=== PATIENT | female | born 1945 | race Caucasian/White ===

== ENCOUNTER 2020-11-02 07:48 | Outpatient (REF) | payer MEDICARE, SELFPAY ==
--- NOTE | 2020-11-02 | MM_ITS ---
EXAMINATION: MM SCREENING DIGITAL BREAST TOMOSYNTHESIS, BILATERAL CLINICAL INFORMATION: Screening. Asymptomatic. The lifetime risk of breast cancer based on the Tyrer-Cuzick Model is 3%. COMPARISON: Mammography: 10/28/2019, 10/22/2018, 10/21/2017 TECHNIQUE: Digital breast tomosynthesis is performed in both the craniocaudal and mediolateral oblique views along with computer-aided detection (CAD). Synthesized 2D images are generated from the tomosynthesis. FINDINGS: The breasts are almost entirely fatty (ACR BI-RADS breast composition Category a). There are no significant masses, abnormal calcifications, or other abnormalities. There are scattered benign and ductal secretory calcifications again seen. The axilla and skin contours are unremarkable. MM/MM tomosynthesis screening BI IMPRESSION: No mammographic evidence of malignancy. ASSESSMENT: BI-RADS 2: Benign RECOMMENDATION: Routine annual mammography screening. This patient's information was entered into a reminder system with a target due date for their next mammogram.
== END 2020-11-02 07:49 | disposition home or self-care (01) ==
LOC: HO.MAMMO 07:48
PROVIDERS: PCP Internal Medicine; Visit Provider Internal Medicine
DX: Z12.31 Encounter for screening mammogram for malignant neoplasm of breast (principal)
CPT/HCPCS: 77063; 77067

== ENCOUNTER 2021-02-02 11:08 | Outpatient (REF) | payer MEDICARE, SELFPAY ==
[2021-02-02 11:48] LABS: MANUAL DIFF FLAG NO
[2021-02-02 11:52] LABS: Glucose Urine UA NEG (NEG); Leukocyte Esterase Urine NEG (NEG); Nitrite Urine NEG (NEG); PH 5.5 (5.0-8.0); Specific Gravity - Urine <= 1.005 (1.005-1.025); Urine Blood NEG (NEG); Urine Ketones NEG (NEG); Urine Protein NEG (NEG-TRACE)
[2021-02-02 11:53] LABS: Appearance Urine CLEAR; Color Urine COLORLESS
[2021-02-02 11:54] LABS: Basophils Absolute Auto 0.1 X10*3/uL (0.0-0.2); Eosinophils Absolute Auto 0.1 X10*3/uL (0.0-0.4); Hematocrit 40.9 % (37-47); Hemoglobin 13.1 g/dl (12.0-16.0); Imm Gran Abs Auto 0.01 X10*3/uL (0.00-0.03); Imm Gran Pct Auto 0.2 % (0.0-0.4); Lymphocytes Absolute Auto 1.3 X10*3/uL (1.2-4.9); Mean Corpuscular Hemoglobin 30.8 pg (27.0-33.0); Mean Corpuscular Volume 96.2 fL (80-98); Mean Platelet Volume 10.7 fL (9.4-12.3); Monocytes Absolute Auto 0.5 X10*3/uL (0.1-1.2); Monocytes Percent Auto 9.1 % (2-11); Neutrophils Absolute Auto 3.1 X10*3/uL (2.0-8.3); Neutrophils Percent Auto 61.7 % (45-73); Platelet Count 226 X10*3/uL (160-400); Red Blood Count 4.25 X10*6/uL (4.20-5.50)
[2021-02-02 12:35] LABS: Alanine Aminotransferase 24 U/L (0-31); Albumin Level 4.2 g/dL (3.5-5.0); Alkaline Phosphatase 120 U/L (39-117); Anion Gap 14 (12-20); Aspartate Amino Transferase 25 U/L (5-31); Bilirubin Total 0.5 mg/dL (0.0-1.0); Blood Urea Nitrogen 14 mg/dL (9-16); Calcium 9.3 mg/dL (8.4-10.2); Carbon Dioxide 28 mmol/L (22-29); Chloride 104 mmol/L (96-108); Cholesterol 182 mg/dL; Estimated Glomerular Filt Rate > 60; Glucose Fasting 100 mg/dL (60-99); HDL Cholesterol 74 mg/dL; LDL Cholesterol Calculated 79 mg/dl; Potassium 4.7 mmol/L (3.3-5.1); Sodium 141 mmol/L (135-145); Total Protein 6.8 g/dL (6.5-8.0); Triglycerides 148 mg/dL
[2021-02-02 12:36] LABS: TSH reflex Free T4 1.64 uIU/mL (0.32-4.0)
[2021-02-02 12:55] LABS: Folate 14.3 ng/mL (> or = 4.0); Vitamin B12 1222 pg/mL (200-900)
== END 2021-02-02 11:09 | disposition home or self-care (01) ==
LOC: HO.LAB 11:08
PROVIDERS: PCP Internal Medicine; Visit Provider Internal Medicine
DX: I10 Essential (primary) hypertension (principal); E78.00 Pure hypercholesterolemia, unspecified; E53.8 Deficiency of other specified B group vitamins
CPT/HCPCS: 36415; 80053; 80061; 81003; 82607; 82746; 84443; 85025

== ENCOUNTER 2021-03-15 22:18 | Emergency (ER) | payer MEDICARE, SELFPAY ==
--- NOTE | ~2021-03-15 | XR_ITS ---
Examination: XR humerus RT, XR shoulder RT min 2V Indication: pain with palpation to proximal humerus Comparison: No pertinent prior studies are currently available for comparison. Technique: 3 views of the right shoulder and 2 views the right humerus Findings: Humeral head is well-seated in the glenoid fossa. I do not appreciate any acute fracture or dislocation. Hypertrophic degenerative changes in the acromioclavicular joint. No additional acute bony abnormality in the humerus. Visualized right ribs and chest unremarkable. XR/XR shoulder RT min 2V Impression: Degenerative changes. I do not appreciate any acute fracture or dislocation.
--- NOTE | ~2021-03-15 | XR_ITS ---
Examination: XR humerus RT, XR shoulder RT min 2V Indication: pain with palpation to proximal humerus Comparison: No pertinent prior studies are currently available for comparison. Technique: 3 views of the right shoulder and 2 views the right humerus Findings: Humeral head is well-seated in the glenoid fossa. I do not appreciate any acute fracture or dislocation. Hypertrophic degenerative changes in the acromioclavicular joint. No additional acute bony abnormality in the humerus. Visualized right ribs and chest unremarkable. XR/XR humerus RT Impression: Degenerative changes. I do not appreciate any acute fracture or dislocation.
--- NOTE | 2021-03-15 22:47 | ED_ITS ---
HPI - Extremity Injury (Upper) General Chief Complaint: Extremity Injury, Upper Stated Complaint: arm pain Time Seen by Provider: 03/15/21 22:46 Source: patient Mode of arrival: ambulatory Limitations: no limitations History of Present Illness HPI narrative: Patient is a 75-year-old female with a past medical history of HTN, HLD and dementia who presents with her complaining of few hours of right shoulder pain. Patient states she is unable to lift her arm over her head, she states she has pain which starts at the top of her right shoulder and moves down to her arm. She states it is slightly improved from what it was an hour ago, she describes the pain as dull and achy, not sharp for tingling, can use her elbow wrist and fingers in full. Did not try to take any medication to help with the pain. Denies injury Related Data Home Medications Medication Instructions Recorded Confirmed atorvastatin 80 mg tablet 80 mg PO BEDTIME 10/05/20 02/02/21 donepezil 10 mg tablet 10 mg PO DAILY 10/05/20 02/02/21 vit C 250 mg-vit E 90 mg-zinc 40 1 tab PO BID 10/05/20 02/02/21 mg-copper 1 [id number]-[id number] capsule Previous Rx's Medication Instructions Recorded irbesartan 150 mg tablet 150 mg PO DAILY #90 tab 01/30/21 Allergies Allergy/AdvReac Type Severity Reaction Status Date / Time No Known Allergies Allergy Mild NOT Verified 02/02/21 12:22 APPLICABLE Review of Systems Review of Systems: Yes all other systems are reviewed and are negative [facility] Past Medical History Medical History Benign essential hypertension Dementia Keratotic lesion Obesity (BMI 30-39.9) Pure hypercholesterolemia Surgical History History of section Status post bunionectomy (~07/2007) Family History Family History Father Heart disease Mother Heart disease Diabetes mellitus Sister Diabetes mellitus Rheumatoid arthritis Sister Ovarian cancer Social History Social History Alcohol intake: current Alcohol intake frequency: holidays/special occasions only Alcohol type: wine Advance Directives: No Advance Directives Information Provided: No Physical Exam Vital Signs: Vital Signs: Last Vital Signs Temp 98.8 F 03/15/21 22:55 Pulse 74 03/15/21 22:55 Resp 16 03/15/21 22:55 BP 133/78 03/15/21 22:55 Pulse Ox 98 03/15/21 22:55 Body Mass Index 31.2 Const: General: cooperative, healthy appearing, comfortable, no acute distress and well developed Orientation/consciousness: patient oriented x3 Limitations: no limitations HENMT: Head: Yes normal to inspection Eyes: General: appearance normal, both eyes and all related structures Neck: Neck: Yes normal visual inspection and Yes full ROM Resp: Effort & Inspection: normal respiratory effort and able to speak in complete sentences Skin: General skin exam: no rashes or lesions noted Neuro: General: patient oriented x3 Extrem: General: Yes normal to inspection Right upper extremity: normal to inspection and shoulder/upper arm Details: normal to inspection, tenderness, axillary nerve sensory function normal and abnormal ROM Details: pain with active ROM Details: in ADduction and pain with passive ROM Details: with ADduction; no swelling, no abrasions, no lacerations, no ecchymosis, no deformity and no unusual warmth Course Course Course Narrative: Patient is a 75-year-old female with a past medical history of HTN, HLD and dementia who presents with her complaining of few hours of right shoulder pain, denies trauma. VSS. Physical exam reveals patient unable to adduct right arm overhead. Will get right shoulder and humerus x-ray. Reevaluation(s) Reevaluation #1: X-ray negative for fracture or dislocation, only degenerative changes, will discharge home with pain management. Time: 23:45 MDM - Extremity Injury (Upper) Imaging Data shoulder and humerus x-ray right side: Attestation: I personally reviewed and interpreted this imaging study as follows: My impression: Degenerative changes. I do not appreciate any acute fracture or dislocation. Radiologist's impression: [address] [id number] ReportSigned Patient: Anneliese Donnelly [facility]#: [id number]: 5Acct:[id number]/Sex: 75 / FADM Date: 03/15/21Loc: TRAV.EDAttending Dr: Ordering Physician: Patsy Valadez PA-C Date of Service: 03/15/21 Procedure(s): XR humerus RT Accession Number(s): [id number] cc: Patsy Valadez PA-C~ Examination: XR humerus RT, XR shoulder RT min 2V Indication: pain with palpation to proximal humerus Comparison: No pertinent prior studies are currently available for comparison. Technique: 3 views of the right shoulder and 2 views the right humerus Findings: Humeral head is well-seated in the glenoid fossa. I do not appreciate any acute fracture or dislocation. Hypertrophic degenerative changes in the acromioclavicular joint. No additional acute bony abnormality in the humerus. Visualized right ribs and chest unremarkable. XR/XR humerus RT Impression: Degenerative changes. I do not appreciate any acute fracture or dislocation. Dictated By:CHARLINE ARNOLD MDSigned By:<Electronically signed by CHARLINE ARNOLD MD in [place]>03/15/212328 DD/ 2246TD/TT: Production Posting Clerk: [place] Discharge Plan Discharge Prescriptions: No Action irbesartan 150 mg tablet 150 mg PO DAILY Qty: 90 RF: 1 donepezil 10 mg tablet 10 mg PO DAILY RF: 0 atorvastatin 80 mg tablet 80 mg PO BEDTIME RF: 0 PreserVision AREDS-2 [id number] wf-rgvf-vn-mg capsule 1 tab PO BID RF: 0
[2021-03-15 22:55] VITALS: BP 133/78; PULSE 74; RESP 16; TEMP 37.1; O2SAT 98; BMI 31.2
[2021-03-16] MEDS: Ketorolac Tromethamine 30 MG/ML VIAL IM (00:11)
== END 2021-03-16 00:18 | disposition home or self-care (01) ==
PROVIDERS: Emergency Provider Emergency Medicine Emergency Medical Services; PCP Internal Medicine
DX: M25.511 Pain in right shoulder (principal); M19.011 Primary osteoarthritis, right shoulder; I10 Essential (primary) hypertension; E78.00 Pure hypercholesterolemia, unspecified; Z79.02 Long term (current) use of antithrombotics/antiplatelets; Z79.899 Other long term (current) drug therapy
CPT/HCPCS: 73030; 73060; 96372; 99283; 99284; J1885

== ENCOUNTER 2021-03-30 16:49 | Emergency (ER) | payer OTHER, MEDICARE, SELFPAY ==
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
[2021-03-30 16:59] VITALS: BP 132/68; PULSE 98; O2SAT 100
[2021-03-30 17:16] VITALS: BP 136/61; PULSE 99; RESP 20; O2SAT 100; BMI 34.2
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
[2021-03-30 20:44] VITALS: BP 122/58; PULSE 84; RESP 14; TEMP 35.9; O2SAT 100
[2021-03-30] MEDS: Acetaminophen 325 MG TABLET 975 MG PO (21:18)
== END 2021-03-30 21:44 | disposition home or self-care (01) ==
PROVIDERS: Emergency Provider Internal Medicine; PCP Internal Medicine
DX: S52.515A Nondisplaced fracture of left radial styloid process, initial encounter for closed fracture (principal); S80.02XA Contusion of left knee, initial encounter; S50.02XA Contusion of left elbow, initial encounter; V47.5XXA Car driver injured in collision with fixed or stationary object in traffic accident, initial encounter; I10 Essential (primary) hypertension; E78.00 Pure hypercholesterolemia, unspecified; F03.90 Unspecified dementia, unspecified severity, without behavioral disturbance, psychotic disturbance, mood disturbance, and anxiety; Y93.89 Activity, other specified; Y92.014 Private driveway to single-family (private) house as the place of occurrence of the external cause; Y99.9 Unspecified external cause status; Z79.02 Long term (current) use of antithrombotics/antiplatelets; Z79.899 Other long term (current) drug therapy
CPT/HCPCS: 29125; 70450; 73070; 73100; 73562; 99285

== ENCOUNTER → 2021-04-03 14:15 | Outpatient (BNVA) | payer OTHER, MEDICARE, SELFPAY | PROVIDERS: PCP Internal Medicine; Visit Provider Physician Assistant | DX: S52.513A Displaced fracture of unspecified radial styloid process, initial encounter for closed fracture (principal) | CPT/HCPCS: 25600 ==

== ENCOUNTER 2021-04-23 10:10 | Outpatient (REF) | payer OTHER, MEDICARE, SELFPAY ==
--- NOTE | ~2021-04-23 | XR_ITS ---
EXAMINATION: XR WRIST, LEFT CLINICAL INFORMATION: Radial styloid fracture. COMPARISON: Left wrist radiographs dated 03/30/2021. TECHNIQUE: PA, lateral, and oblique views of the left wrist. FINDINGS: Nondisplaced radial styloid fracture in unchanged anatomic alignment with mild new bone/callus formation. No new fracture or dislocation. Severe osteoarthritis redemonstrated at the 1st carpometacarpal joint with more moderate degenerative arthritis at the triscaphe joint. No osseous erosion. No abnormal soft tissue calcification. XR/XR wrist LT min 3V IMPRESSION: Radial styloid fracture in unchanged anatomic alignment with mild new bone/callus formation.
== END 2021-04-23 10:11 | disposition home or self-care (01) ==
LOC: HO.HOSX 10:10
PROVIDERS: Visit Provider Physician Assistant
DX: S52.513A Displaced fracture of unspecified radial styloid process, initial encounter for closed fracture (principal); V23.4XXA Motorcycle driver injured in collision with car, pick-up truck or van in traffic accident, initial encounter; Y93.9 Activity, unspecified; Y92.9 Unspecified place or not applicable; Y99.9 Unspecified external cause status
CPT/HCPCS: 73110

== ENCOUNTER 2021-05-21 07:33 | Outpatient (REF) | payer OTHER, MEDICARE, SELFPAY ==
--- NOTE | ~2021-05-21 | XR_ITS ---
EXAMINATION: XR HAND AND WRIST, LEFT CLINICAL INFORMATION: Radial styloid fracture. COMPARISON: Most recent left wrist radiographs dated 04/23/2021 TECHNIQUE: AP, oblique, and lateral views of the left hand and wrist. FINDINGS: Redemonstration of a radial styloid fracture in unchanged anatomic alignment with mild interval sclerosis/osseous bridging when compared to the prior examination. No acute fracture. No dislocation. Scattered degenerative arthritis redemonstrated, most prominent at the 1st carpometacarpal joint. XR/XR hand wrist LT IMPRESSION: Redemonstration of a radial styloid fracture in unchanged anatomic alignment with interval new bone formation.
== END 2021-05-21 07:34 | disposition home or self-care (01) ==
LOC: HO.HOSX 07:33
PROVIDERS: Visit Provider Physician Assistant
DX: S52.513D Displaced fracture of unspecified radial styloid process, subsequent encounter for closed fracture with routine healing (principal); X58.XXXD Exposure to other specified factors, subsequent encounter
CPT/HCPCS: 73110; 73130

== ENCOUNTER 2021-05-25 08:24 | Outpatient (REF) | payer MEDICARE, SELFPAY ==
[2021-05-25 09:48] LABS: Alanine Aminotransferase 83 U/L (0-31); Albumin Level 3.9 g/dL (3.5-5.0); Alkaline Phosphatase 126 U/L (39-117); Anion Gap 18 (12-20); Aspartate Amino Transferase 61 U/L (5-31); Bilirubin Total 0.9 mg/dL (0.0-1.0); Blood Urea Nitrogen 13 mg/dL (9-16); Calcium 9.4 mg/dL (8.4-10.2); Carbon Dioxide 21 mmol/L (22-29); Chloride 102 mmol/L (96-108); Cholesterol 171 mg/dL; Estimated Glomerular Filt Rate > 60; Glucose Fasting 103 mg/dL (60-99); HDL Cholesterol 67 mg/dL; LDL Cholesterol Calculated 91 mg/dl; Potassium 4.6 mmol/L (3.3-5.1); Sodium 136 mmol/L (135-145); Total Protein 6.7 g/dL (6.5-8.0); Triglycerides 68 mg/dL
== END 2021-05-25 08:25 | disposition home or self-care (01) ==
LOC: HO.LAB 08:24
PROVIDERS: PCP Internal Medicine; Visit Provider Internal Medicine
DX: E78.00 Pure hypercholesterolemia, unspecified (principal); I10 Essential (primary) hypertension
CPT/HCPCS: 36415; 80053; 80061

== ENCOUNTER 2021-06-26 13:43 | Outpatient (REF) | payer MEDICARE, SELFPAY ==
--- NOTE | ~2021-06-26 | MM_ITS ---
EXAMINATION: BONE DENSITOMETRY CLINICAL INDICATION: Encounter for screening for diabetes mellitus. COMPARISON: Previous BD dated 01/30/2016 and baseline BD dated 07/20/2007. TECHNIQUE: Using a [employer] DXA System (software version: 13.1) manufactured by [employer], dual-energy x-ray absorptiometry was performed of the lumbar spine and left hip. The images are of good technical quality. Summary results are attached. FINDINGS: AP SPINE L1-L2 (excluding L3 and L4): The data of L1-L4 has been changed to exclude the L3 and L4 vertebral bodies, because scoliosis with sclerosis at these levels may cause overestimation of lumbar spine density. Current: BMD 0.971 g/cm2, Z-score -0.5, T-score -1.6, osteopenia, 12.1% decrease from previous, 7.1% decrease from baseline (<5% change is not significant). Prior: BMD 1.105 g/cm2. Baseline: BMD 1.045 g/cm2. LEFT FEMUR, NECK: Current: BMD 0.725 g/cm2, Z-score -0.7, T-score -2.2, osteopenia. Prior: BMD 0.761 g/cm2. Baseline: BMD 0.818 g/cm2. LEFT FEMUR, TOTAL: Current: BMD 0.756 g/cm2, Z-score -0.7, T-score -2.0, osteopenia, 12.3% decrease from previous, 15.8% decrease from baseline (<5% change is not significant). Prior: BMD 0.862 g/cm2. Baseline: BMD 0.898 g/cm2. IDENTIFIED RISK FACTORS: Early menopause, secondary osteoporosis. HISTORY OF FRACTURE: None listed. MEDICATIONS: Calcium supplements or multivitamin, vitamin D. MM/XR DEXA axial skeleton IMPRESSION: 1. DIAGNOSIS: Osteopenia based on the lowest T-score value of -2.2 in the femoral neck applying World Health Organization criteria. 2. 10-YEAR FRACTURE RISK PREDICTION, FRAX: Major osteoporotic fracture (clinical spine, forearm, hip or shoulder) 13.9%. Hip fracture 3.9%. 3. Treatment Recommendations: NOF guidelines recommend consideration for treatment in postmenopausal women and men age 50 and older presenting with the following: -A hip or vertebral (clinical or morphometric) fracture. -T-score less than or equal to -2.5 at the femoral neck or spine after appropriate evaluation to exclude secondary causes. -Low bone mass at the hip or spine and a 10-year fracture probability by FRAX of greater than or equal to 3% for hip fracture or greater than or equal to 20% for major osteoporotic fracture based on the [place] adapted WHO algorithm. 4. Other Recommendations: All treatment decisions require clinical judgment and consideration of individual patient factors, including patient preferences, comorbidities, previous drug use, risk factors not captured in the FRAX model (e.g. frailty, falls, vitamin D deficiency, increased bone turnover, interval significant decline in bone density) and possible under or overestimation of fracture risk by FRAX. Additional medical evaluation for secondary cause of low bone mineral density may be appropriate. FUTURE SCAN RECOMMENDATION: People with diagnosed cases of osteoporosis or at high risk for fracture should have regular bone mineral density tests. For patients eligible for Medicare, routine testing is allowed once every 2 years. The testing frequency can be increased to one year for patients who have rapidly progressing disease, those who are receiving or discontinuing medical therapy to restore bone mass, or have additional risk factors.
== END 2021-06-26 13:44 | disposition home or self-care (01) ==
LOC: HO.MAMMO 13:43
PROVIDERS: PCP Internal Medicine; Visit Provider Nurse Practitioner Family
DX: Z13.820 Encounter for screening for osteoporosis (principal); M85.80 Other specified disorders of bone density and structure, unspecified site; Z78.0 Asymptomatic menopausal state; Z79.899 Other long term (current) drug therapy
CPT/HCPCS: 77080

== ENCOUNTER 2021-09-04 07:43 | Outpatient (REF) | payer MEDICARE, SELFPAY ==
[2021-09-04 09:11] LABS: Alanine Aminotransferase 33 U/L (0-31); Albumin Level 3.7 g/dL (3.5-5.0); Alkaline Phosphatase 102 U/L (39-117); Anion Gap 11 (12-20); Aspartate Amino Transferase 29 U/L (5-31); Bilirubin Total 0.5 mg/dL (0.0-1.0); Blood Urea Nitrogen 13 mg/dL (9-16); Calcium 9.4 mg/dL (8.4-10.2); Carbon Dioxide 29 mmol/L (22-29); Chloride 104 mmol/L (96-108); Cholesterol 249 mg/dL; Estimated Glomerular Filt Rate > 60; Glucose Fasting 97 mg/dL (60-99); HDL Cholesterol 67 mg/dL; LDL Cholesterol Calculated 156 mg/dl; Potassium 4.4 mmol/L (3.3-5.1); Sodium 140 mmol/L (135-145); Total Protein 6.2 g/dL (6.5-8.0); Triglycerides 131 mg/dL
== END 2021-09-04 07:44 | disposition home or self-care (01) ==
LOC: HO.LAB 07:43
PROVIDERS: PCP Internal Medicine; Visit Provider Internal Medicine
DX: E78.00 Pure hypercholesterolemia, unspecified (principal); I10 Essential (primary) hypertension
CPT/HCPCS: 36415; 80053; 80061

== ENCOUNTER 2021-09-11 13:41 | Outpatient (REF) | payer MEDICARE, SELFPAY ==
[2021-09-12 13:12] LABS: Lyme Abs Screen <0.90 index
== END 2021-09-11 13:42 | disposition home or self-care (01) ==
LOC: HO.LAB 13:41
PROVIDERS: PCP Internal Medicine; Visit Provider Internal Medicine
DX: R21 Rash and other nonspecific skin eruption (principal)
CPT/HCPCS: 36415; 86617; 86618

== ENCOUNTER 2021-11-09 11:34 | Outpatient (REF) | payer MEDICARE, SELFPAY ==
--- NOTE | ~2021-11-09 | MM_ITS ---
EXAMINATION: MM SCREENING DIGITAL BREAST TOMOSYNTHESIS, BILATERAL CLINICAL INFORMATION: Screening. Asymptomatic. The lifetime risk of breast cancer based on the Tyrer-Cuzick Model is 3%. COMPARISON: Mammography: 11/02/2020, 10/28/2019, 10/22/2018 TECHNIQUE: Digital breast tomosynthesis is performed in both the craniocaudal and mediolateral oblique views along with computer-aided detection (CAD). Synthesized 2D images are generated from the tomosynthesis. FINDINGS: The breasts are almost entirely fatty (ACR BI-RADS breast composition Category a). There are no significant masses, abnormal calcifications, or other abnormalities. Scattered benign vascular, ductal secretory, and a few round calcifications are again noted. No significant changes. The axilla are unremarkable. MM/MM tomosynthesis screening BI IMPRESSION: No mammographic evidence of malignancy. ASSESSMENT: BI-RADS 2: Benign RECOMMENDATION: Routine annual mammography screening. This patient's information was entered into a reminder system with a target due date for their next mammogram.
== END 2021-11-09 11:35 | disposition home or self-care (01) ==
LOC: HO.MAMMO 11:34
PROVIDERS: Visit Provider Internal Medicine
DX: Z12.31 Encounter for screening mammogram for malignant neoplasm of breast (principal)
CPT/HCPCS: 77063; 77067

== ENCOUNTER 2022-03-19 10:30 | Outpatient (REF) | payer MEDICARE, SELFPAY ==
[2022-03-19 10:50] LABS: MANUAL DIFF FLAG NO
[2022-03-19 11:53] LABS: Basophils Percent Auto 0.9 % (0-2); Eosinophils Absolute Auto 0.1 X10*3/uL (0.0-0.4); Eosinophils Percent Auto 2.6 % (0-4); Hematocrit 39.1 % (37.0-47.0); Hemoglobin 12.9 g/dl (12.0-16.0); Imm Gran Abs Auto 0.01 X10*3/uL (0.00-0.03); Imm Gran Pct Auto 0.2 % (0.0-0.4); Lymphocytes Absolute Auto 1.4 X10*3/uL (1.2-4.9); Lymphocytes Percent Auto 30.8 % (20-40); Mean Corpuscular Hemoglobin 31.6 pg (27.0-33.0); Mean Corpuscular Volume 95.8 fL (80.0-98.0); Mean Platelet Volume 11.3 fL (9.4-12.3); Monocytes Absolute Auto 0.5 X10*3/uL (0.1-1.2); Monocytes Percent Auto 10.3 % (2-11); Neutrophils Absolute Auto 2.6 x10*3/uL (2.0-8.3); Neutrophils Percent Auto 55.2 % (45-73); Platelet Count 149 X10*3/uL (160-400); Red Blood Count 4.08 X10*6/uL (4.20-5.50); White Blood Count 4.7 X10*3/uL (4.8-10.8)
[2022-03-19 12:05] LABS: Alanine Aminotransferase 36 U/L (0-31); Albumin Level 3.9 g/dL (3.5-5.0); Alkaline Phosphatase 112 U/L (39-117); Anion Gap 15 (12-20); Aspartate Amino Transferase 36 U/L (5-31); Bilirubin Total 0.7 mg/dL (0.0-1.0); Blood Urea Nitrogen 18 mg/dL (9-16); Carbon Dioxide 24 mmol/L (22-29); Chloride 101 mmol/L (96-108); Cholesterol 170 mg/dL; Estimated Glomerular Filt Rate > 60; Glucose Fasting 90 mg/dL (60-99); HDL Cholesterol 63 mg/dL; LDL Cholesterol Calculated 95 mg/dl; Potassium 4.2 mmol/L (3.3-5.1); Sodium 136 mmol/L (135-145); Total Protein 6.5 g/dL (6.5-8.0); Triglycerides 61 mg/dL
[2022-03-19 12:16] LABS: TSH reflex Free T4 1.66 uIU/mL (0.32-4.0); Vitamin D 25-OH Total 44.6 ng/mL (>30)
[2022-03-19 12:16] LABS: Appearance Urine HAZY; Color Urine YELLOW; Glucose Urine UA NEG (NEG); Leukocyte Esterase Urine 1+ (NEG); Nitrite Urine NEG (NEG); PH 5.5 (5.0-8.0); UACC Culture Trigger YES; Urine Blood NEG (NEG); Urine Ketones NEG (NEG); Urine Protein NEG (NEG-TRACE)
[2022-03-19 12:53] LABS: RBC Urine 0 /HPF (0); Renal Epithelial Cells Urine TRACE /LPF; Squamous Epithelial Cell Urine TRACE /LPF
== END 2022-03-19 10:31 | disposition home or self-care (01) ==
LOC: HO.LAB 10:30
PROVIDERS: PCP Internal Medicine; Visit Provider Internal Medicine
DX: I10 Essential (primary) hypertension (principal); E55.9 Vitamin D deficiency, unspecified; E78.00 Pure hypercholesterolemia, unspecified
CPT/HCPCS: 36415; 80053; 80061; 81001; 81003; 82306; 84443; 85025; 87086

== ENCOUNTER 2022-09-16 08:15 | Outpatient (REF) | payer MEDICARE, SELFPAY ==
[2022-09-16 08:27] LABS: MANUAL DIFF FLAG NO
[2022-09-16 08:37] LABS: Basophils Absolute Auto 0.1 X10*3/uL (0.0-0.2); Basophils Percent Auto 1.2 % (0-2); Eosinophils Absolute Auto 0.2 X10*3/uL (0.0-0.4); Eosinophils Percent Auto 2.6 % (0-4); Hematocrit 39.8 % (37.0-47.0); Hemoglobin 13.4 g/dl (12.0-16.0); Imm Gran Abs Auto 0.02 X10*3/uL (0.00-0.03); Imm Gran Pct Auto 0.3 % (0.0-0.4); Lymphocytes Absolute Auto 2.2 X10*3/uL (1.2-4.9); Lymphocytes Percent Auto 32.3 % (20-40); Mean Corpuscular HGB Conc 33.7 g/dl (31.0-35.0); Mean Corpuscular Hemoglobin 32.1 pg (27.0-33.0); Mean Corpuscular Volume 95.4 fL (80.0-98.0); Mean Platelet Volume 10.9 fL (9.4-12.3); Monocytes Absolute Auto 0.6 X10*3/uL (0.1-1.2); Monocytes Percent Auto 8.5 % (2-11); Neutrophils Absolute Auto 3.8 x10*3/uL (2.0-8.3); Neutrophils Percent Auto 55.1 % (45-73); Platelet Count 205 X10*3/uL (160-400); Red Blood Count 4.17 X10*6/uL (4.20-5.50); Red Cell Distribution Width 12.2 % (11.0-16.0); White Blood Count 6.9 X10*3/uL (4.8-10.8)
[2022-09-16 09:22] LABS: Alanine Aminotransferase 30 U/L (0-31); Albumin Level 3.9 g/dL (3.5-5.0); Alkaline Phosphatase 121 U/L (39-117); Anion Gap 15 (12-20); Aspartate Amino Transferase 34 U/L (5-31); Bilirubin Total 0.8 mg/dL (0.0-1.0); Blood Urea Nitrogen 18 mg/dL (9-16); Calcium 9.5 mg/dL (8.4-10.2); Carbon Dioxide 24 mmol/L (22-29); Chloride 103 mmol/L (96-108); Cholesterol 164 mg/dL; Estimated Glomerular Filt Rate 56; Glucose Fasting 99 mg/dL (60-99); HDL Cholesterol 74 mg/dL; LDL Cholesterol Calculated 79 mg/dl; Potassium 3.9 mmol/L (3.3-5.1); Sodium 138 mmol/L (135-145); TSH reflex Free T4 1.74 uIU/mL (0.32-4.0); Total Protein 6.4 g/dL (6.5-8.0); Triglycerides 58 mg/dL; Vitamin D 25-OH Total 44.2 ng/mL (>30)
[2022-09-16 09:33] LABS: Appearance Urine Hazy; Color Urine Yellow; Glucose Urine UA Negative (Negative); Leukocyte Esterase Urine Small (1+) (Negative); Nitrite Urine Negative (Negative); PH 5.5 (5.0-9.0); Specific Gravity - Urine >= 1.030 (1.005-1.025); UMIC TRIGGER UACC YES; Urine Blood Negative (Negative); Urine Ketones Trace mg/dL (Negative); Urine Protein Negative (Neg-Trace)
[2022-09-16 09:43] LABS: Bacteria Urine None Seen (None Seen); RBC Urine 0-2 /HPF (0-2); Renal Epithelial Cells Urine Present; UACC Culture Trigger YES; WBC Urine 0-5 /HPF (0-5)
[2022-09-16 09:44] LABS: Calcium Oxalate Crystals Urine Present; Hyaline Casts Urine 0-2 /LPF (0-2)
== END 2022-09-16 08:16 | disposition home or self-care (01) ==
LOC: HO.LAB 08:15
PROVIDERS: PCP Internal Medicine; Visit Provider Internal Medicine
DX: E55.9 Vitamin D deficiency, unspecified (principal); I10 Essential (primary) hypertension; E78.00 Pure hypercholesterolemia, unspecified
CPT/HCPCS: 36415; 80053; 80061; 81001; 82306; 84443; 85025; 87086

== ENCOUNTER 2022-11-12 11:52 | Outpatient (REF) | payer MEDICARE, SELFPAY ==
--- NOTE | ~2022-11-12 | MM_ITS ---
EXAMINATION: MM SCREENING DIGITAL BREAST TOMOSYNTHESIS, BILATERAL CLINICAL INFORMATION: Screening. Asymptomatic. The lifetime risk of breast cancer based on the Tyrer-Cuzick Model is 2.2%. COMPARISON: Mammography: November 09, 2021 and studies dating back to September 12, 2016 TECHNIQUE: Digital breast tomosynthesis is performed in both the craniocaudal and mediolateral oblique views along with computer-aided detection (CAD). Synthesized 2D images are generated from the tomosynthesis. FINDINGS: The breasts are almost entirely fatty (ACR BI-RADS breast composition Category a). There are no significant masses, abnormal calcifications, or other abnormalities. MM/MM tomosynthesis screening BI IMPRESSION: No significant changes from prior exam. ASSESSMENT: BI-RADS 1: Negative RECOMMENDATION: Routine annual mammography screening. This patient's information was entered into a reminder system with a target due date for their next mammogram.
== END 2022-11-12 11:53 | disposition home or self-care (01) ==
LOC: HO.MAMMO 11:52
PROVIDERS: Visit Provider Internal Medicine
DX: Z12.31 Encounter for screening mammogram for malignant neoplasm of breast (principal)
CPT/HCPCS: 77063; 77067

== ENCOUNTER 2023-03-17 08:00 | Outpatient (REF) | payer MEDICARE, SELFPAY ==
[2023-03-17 08:18] LABS: MANUAL DIFF FLAG NO
[2023-03-17 09:06] LABS: Basophils Absolute Auto 0.1 X10*3/uL (0.0-0.2); Basophils Percent Auto 1.2 % (0-2); Eosinophils Absolute Auto 0.3 X10*3/uL (0.0-0.4); Eosinophils Percent Auto 5.3 % (0-4); Hematocrit 39.6 % (37.0-47.0); Imm Gran Abs Auto 0.01 X10*3/uL (0.00-0.03); Imm Gran Pct Auto 0.2 % (0.0-0.4); Lymphocytes Absolute Auto 1.8 X10*3/uL (1.2-4.9); Mean Corpuscular HGB Conc 32.8 g/dl (31.0-35.0); Mean Corpuscular Volume 94.5 fL (80.0-98.0); Mean Platelet Volume 11.2 fL (9.4-12.3); Monocytes Absolute Auto 0.5 X10*3/uL (0.1-1.2); Neutrophils Absolute Auto 3.2 x10*3/uL (2.0-8.3); Neutrophils Percent Auto 54.3 % (45-73); Platelet Count 170 X10*3/uL (160-400); Red Blood Count 4.19 X10*6/uL (4.20-5.50); White Blood Count 5.9 X10*3/uL (4.8-10.8)
[2023-03-17 09:22] LABS: Alanine Aminotransferase 24 U/L (0-31); Albumin Level 3.7 g/dL (3.5-5.0); Alkaline Phosphatase 123 U/L (39-117); Anion Gap 12 (12-20); Aspartate Amino Transferase 24 U/L (5-31); Bilirubin Total 0.8 mg/dL (0.0-1.0); Blood Urea Nitrogen 15 mg/dL (9-16); Calcium 9.4 mg/dL (8.4-10.2); Carbon Dioxide 27 mmol/L (22-29); Chloride 103 mmol/L (96-108); Cholesterol 175 mg/dL; Estimated Glomerular Filt Rate > 60; Glucose Fasting 92 mg/dL (60-99); HDL Cholesterol 75 mg/dL; LDL Cholesterol Calculated 90 mg/dl; Potassium 4.3 mmol/L (3.3-5.1); Sodium 138 mmol/L (135-145); Total Protein 6.4 g/dL (6.5-8.0); Triglycerides 53 mg/dL
== END 2023-03-17 08:01 | disposition home or self-care (01) ==
LOC: HO.LAB 08:00
PROVIDERS: PCP Internal Medicine; Visit Provider Internal Medicine
DX: I10 Essential (primary) hypertension (principal); E78.00 Pure hypercholesterolemia, unspecified
CPT/HCPCS: 36415; 80053; 80061; 85025

== ENCOUNTER 2023-07-15 10:48 | Outpatient (AMB) | payer MEDICARE, SELFPAY ==
[2023-07-15 10:49] VITALS: BP 120/74; PULSE 73; O2SAT 99; BMI 31.8
--- NOTE | 2023-07-15 10:49 | AM.OFFVISMDC ---
Intake Vital Signs 07/15/23 10:49 Height 5 ft Weight 163 lb 0.6 oz BMI 31.8 BP 120/74 Blood Pressure Location Lt brachial Position Sitting Pulse 73 Pulse Source Pulse Oximeter Temp Source Skin Pulse Oximetry (%) 99 Oxygen Delivery Method Room Air Intake Visit Reasons: QUETA G0439, Discuss ACP Intake Note: Patient is here for an Annual Wellness Visit. Allergies No Known Allergies Allergy (Mild, Verified 07/15/23 11:10) NOT APPLICABLE Medication List - Last Reconciled 07/15/23 by MINE Cortez atorvastatin 80 mg PO BEDTIME 90 days donepezil 10 mg PO DAILY irbesartan 150 mg PO DAILY memantine 10 mg PO BID vit C,X-Jq-rfjra-lutein-zeaxan 250-90-40-1 mg (PreserVision AREDS-2) 1 tab PO BID HPI QUETA G0439, Discuss ACP HPI Details Patient is a 77-year-old female who presents today for subsequent wellness visit. Patient of Dr. Nava. Medical history significant for obesity, dementia, hypertension, and hypercholesterolemia. Today we discussed patient's need for bone density screening, patient and her have declined. Mammogram 11/2022 which was normal. [place] of care was reviewed with the patient and her and they were provided with a screening schedule. End of life planning was discussed with and patient and they were provided with healthcare proxy and MOLST forms. [facility] Medical History (Updated 07/15/23 @ 12:13 by MINE Cortez) Immunization due Rash Screening for diabetes mellitus Radial styloid fracture Closed fracture of radial styloid Keratotic lesion Obesity (BMI 30-39.9) Dementia Benign essential hypertension Pure hypercholesterolemia Surgical History History of colonoscopy Status post bunionectomy (~07/2007) History of section Family History Father Heart disease Mother Heart disease Diabetes mellitus Sister Diabetes mellitus Rheumatoid arthritis Sister Ovarian cancer Social History Housing: House Alcohol intake: former Patient Tobacco Use Status: Never used Tobacco e-Cigarette/Vaping Use: Never Used Second Hand Smoke Exposure: Yes service: No Current occupational status: retired Cognitive needs: No Hearing needs: No Vision needs: Yes Questionnaire Medicare Wellness Checkup [age] What gender do you identify with?: female During the past 4 weeks, how much have you been bothered by emotional problems such as feeling anxious, depressed, irritable, sad or downhearted, and blue?: not at all During the past 4 weeks, has your physical & emotional health limited your social activities with family, friends, neighbors, or groups?: not at all During the past 4 weeks, how much bodily pain have you generally had?: no pain During the past 4 weeks, was someone available to help you if you needed & wanted help?: yes, as much as I wanted During the past 4 weeks, what was the hardest physical activity you could do for at least 2 minutes?: moderate Can you get to places out of walking distance without help? (For eg., can you travel alone on buses, taxis or drive your car?): Yes Can you go shopping for groceries or clothes without someone's help?: Yes Can you prepare your own meals?: Yes Can you do your housework without help?: Yes Because of any health problems, do you need the help of another person with your personal care needs such as eating, bathing, dressing or getting around the house?: No Can you handle your own money without help?: Yes During the past 4 weeks, how would you rate your health in general?: excellent During the past 4 weeks how have things been going for you?: pretty well Are you having difficulties driving your car?: yes, often Do you always fasten your seat belt when you are in a car?: yes, usually During past 4 weeks, have you been bothered by the following: never: Falling or dizzy when standing up, Sexual problems?, Trouble eating well?, Teeth or denture problems?, Problems using the telephone? and Tiredness or fatigue? Have you fallen 2 or more times in the past year?: No Are you afraid of falling?: No Are you a smoker?: no During the past 4 weeks, how many drinks of wine, beer, or other alcoholic beverages did you have?: 1 drink or less per week Do you exercise for about 20 minutes 3 or more times a week?: yes, some of the time Have you been given information to help with the following?: yes: Keeping track of your medications? and no: Hazards in your house that might hurt you? How often do you have trouble taking medicines the way you have been told to take them?: I always take medicine as prescribed How confident are you that you can control & manage most of your health problems?: somewhat confident What is your race?: White Mini Mental State Exam (MMSE) Orientation What is the (year) (season) (date) (day) (month)?: month (a and o to self and place ) Score Score: 1 Activity of Daily Living Bathing - sponge bath, tub bath or shower: receives no assistance (gets in/out by self, if usual bathing means Dressing - getting clothes from closets & drawers, including inner/outer garments & fasteners.: gets clothes & gets completely dressed without help Toileting - going to the 'toilet room' for urine/bowel elimination & cleaning self/arranging clothes: goes to toilet room, cleans self, arranges clothes without help Transfer: moves in & out of bed and chair without help (may use support object) Continence: controls urination/bowel movements completely by self Feeding: feeds self without help Total Score: 0 Information obtained from: patient Using telephone: independent Traveling: dependent Shopping: needs assistance Preparing meals: needs assistance Housework: needs assistance Taking medicine: needs assistance Managing money: dependent PHQ-9 Over the last 2 weeks, how often have you been bothered by any of the following problems? 1. Little interest or pleasure in doing things: not at all 2. Feeling down, depressed, or hopeless: not at all 3. Trouble falling or staying asleep, or sleeping too much: not at all 4. Feeling tired or having little energy: not at all 5. Poor appetite or overeating: not at all 6. Feeling bad about yourself - or that you are a failure or have let yourself or your family down: not at all 7. Trouble concentrating on things, such as reading the newspaper or watching television: not at all 8. Moving or speaking so slowly that other people could have noticed. Or the opposite - being so fidgety or restless that you have been moving around a lot more than usual: not at all 9. Thoughts that you would be better off or of hurting yourself in some way: not at all Total score: 0 Depression Screening Interpretation: Negative Depression Screening Done: Yes 45922 - PHQ-9 Billing: Yes Source: Developed by Drs. Mello Richey, Katina Avalos, Beni Palma and colleagues, with an educational sesar from [employer]. Physical Exam Vital Signs: Last Vital Signs Pulse 73 07/15/23 10:49 BP 120/74 07/15/23 10:49 Pulse Ox 99 07/15/23 10:49 Oxygen Delivery Method Room Air 07/15/23 10:49 BMI result Body Mass Index 31.8 Const General: cooperative and no acute distress Orientation/consciousness: oriented to person and oriented to place HEENT Other: Whisper test: pass Neuro Other: Balance: Normal Get up and walk: able to Romberg: negative Tandem gait: unable to General: oriented to person and oriented to place Assessment & Plan Assessment & Plan (1) Adult general medical exam: Code(s): Z00.00 - Encounter for general adult medical examination without abnormal findings (2) Dementia: Code(s): F03.90 - Unspecified dementia, unspecified severity, without behavioral disturbance, psychotic disturbance, mood disturbance, and anxiety Qualifiers: Dementia type: unspecified type Dementia behavioral disturbance: without behavioral disturbance Qualified Code(s): F03.90 - Unspecified dementia without behavioral disturbance Plan: Patient is followed by neurology Dr. Sanchez. On memantine (3) Benign essential hypertension: Code(s): I10 - Essential (primary) hypertension Plan: Continue current treatment. Reinforced low-sodium diet. (4) Pure hypercholesterolemia: Code(s): E78.00 - Pure hypercholesterolemia, unspecified Plan: Continue current treatment. Reinforced low-cholesterol diet. (5) Obesity (BMI 30-39.9): Code(s): E66.9 - Obesity, unspecified Plan: Healthy food choices and exercise as tolerated Quality Reporting (2019) Depression/Bipolar (159/160/161/177) PHQ-9: Total score: 0 Coding Level of Care Code Medicare Subsequent (G0439) Diagnoses Adult general medical exam Z00.00 Dementia without behavioral disturbance, unspecified dementia type F03.90 Dementia type: unspecified type Dementia behavioral disturbance: without behavioral disturbance Benign essential hypertension I10 Pure hypercholesterolemia E78.00 Obesity (BMI 30-39.9) E66.9 CPT Codes Advance Care Planning - Time spent: 1-15 minutes, not on file ([id number]) Advance Care Planning Date of discussion: 07/15/23 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
== END 2023-07-15 11:23 | disposition home or self-care (01) ==
PROVIDERS: Visit Provider Nurse Practitioner Family
DX: Z00.00 Encounter for general adult medical examination without abnormal findings (principal); F03.90 Unspecified dementia, unspecified severity, without behavioral disturbance, psychotic disturbance, mood disturbance, and anxiety; I10 Essential (primary) hypertension; E78.00 Pure hypercholesterolemia, unspecified; E66.9 Obesity, unspecified
CPT/HCPCS: 1124F; G0439

== ENCOUNTER 2023-09-09 08:58 | Outpatient (REF) | payer MEDICARE, SELFPAY ==
[2023-09-09 09:29] LABS: MANUAL DIFF FLAG NO
[2023-09-09 10:16] LABS: Basophils Percent Auto 0.6 % (0-2); Eosinophils Absolute Auto 0.2 X10*3/uL (0.0-0.4); Eosinophils Percent Auto 3.4 % (0-4); Hematocrit 40.4 % (37.0-47.0); Hemoglobin 13.4 g/dl (12.0-16.0); Imm Gran Abs Auto 0.03 X10*3/uL (0.00-0.03); Imm Gran Pct Auto 0.5 % (0.0-0.4); Lymphocytes Absolute Auto 1.6 X10*3/uL (1.2-4.9); Mean Corpuscular HGB Conc 33.2 g/dl (31.0-35.0); Mean Corpuscular Hemoglobin 31.3 pg (27.0-33.0); Mean Corpuscular Volume 94.4 fL (80.0-98.0); Mean Platelet Volume 10.7 fL (9.4-12.3); Monocytes Absolute Auto 0.5 X10*3/uL (0.1-1.2); Monocytes Percent Auto 8.1 % (2-11); Neutrophils Percent Auto 62.4 % (45-73); Platelet Count 222 X10*3/uL (160-400); Red Blood Count 4.28 X10*6/uL (4.20-5.50); Red Cell Distribution Width 12.5 % (11.0-16.0); White Blood Count 6.4 X10*3/uL (4.8-10.8)
[2023-09-09 11:32] LABS: Folate 8.5 ng/mL (> or = 4.0); Vitamin B12 1844 pg/mL (200-900)
[2023-09-09 11:33] LABS: Appearance Urine Clear; Color Urine Yellow; Glucose Urine UA Negative (Negative); Leukocyte Esterase Urine Moderate (2+) (Negative); Nitrite Urine Negative (Negative); PH 6.5 (5.0-9.0); Specific Gravity - Urine 1.015 (1.005-1.025); UMIC TRIGGER UACC YES; Urine Blood Negative (Negative); Urine Ketones Negative (Negative); Urine Protein Negative (Neg-Trace)
[2023-09-09 11:45] LABS: Alanine Aminotransferase 28 U/L (0-31); Albumin Level 3.7 g/dL (3.5-5.0); Alkaline Phosphatase 137 U/L (39-117); Anion Gap 14 (12-20); Aspartate Amino Transferase 29 U/L (5-31); Bilirubin Total 0.6 mg/dL (0.0-1.0); Blood Urea Nitrogen 14 mg/dL (9-16); Calcium 9.5 mg/dL (8.4-10.2); Carbon Dioxide 26 mmol/L (22-29); Chloride 103 mmol/L (96-108); Cholesterol 161 mg/dL (<200); Estimated Glomerular Filt Rate > 60; Glucose Fasting 93 mg/dL (60-99); HDL Cholesterol 65 mg/dL (>40); LDL Cholesterol Calculated 79 mg/dL (<100); Potassium 4.1 mmol/L (3.3-5.1); Sodium 139 mmol/L (135-145); TSH reflex Free T4 1.85 uIU/mL (0.32-4.0); Total Protein 6.9 g/dL (6.5-8.0); Triglycerides 89 mg/dL (<150); Vitamin D 25-OH Total 50.5 ng/mL (>30)
[2023-09-09 11:47] LABS: Bacteria Urine None Seen (None Seen); Calcium Oxalate Crystals Urine Present; RBC Urine 0-2 /HPF (0-2); Squamous Epithelial Cell Urine 0-2 /HPF (0-2); WBC Urine 0-5 /HPF (0-5)
== END 2023-09-09 08:59 | disposition home or self-care (01) ==
LOC: HO.LAB 08:58
PROVIDERS: PCP Internal Medicine; Visit Provider Internal Medicine
DX: I10 Essential (primary) hypertension (principal); E78.00 Pure hypercholesterolemia, unspecified; E53.8 Deficiency of other specified B group vitamins; E55.9 Vitamin D deficiency, unspecified
CPT/HCPCS: 36415; 80053; 80061; 81001; 82306; 82607; 82746; 84443; 85025

== ENCOUNTER 2023-09-23 12:18 | Outpatient (AMB) | payer MEDICARE, SELFPAY ==
[2023-09-23 12:33] VITALS: BP 122/76; PULSE 83; O2SAT 97; BMI 33.9
--- NOTE | 2023-09-23 12:33 | A.OFFPC_ITS ---
Vital Signs 09/23/23 12:33 Height 5 ft Weight 173 lb 8 oz BMI 33.9 BP 122/76 Blood Pressure Location Lt brachial Position Sitting Pulse 83 Pulse Source Pulse Oximeter Pulse Oximetry (%) 97 Oxygen Delivery Method Room Air Intake Visit Reasons: HTN, hyperlipidemia Dowel Inspector Required: No Accompanied by: Self / Same As Patient Allergies No Known Allergies Allergy (Mild, Verified 09/23/23 12:52) NOT APPLICABLE Medication List - Last Reconciled 09/23/23 by Tom Nava MD atorvastatin 80 mg PO BEDTIME 90 days donepezil 10 mg PO DAILY irbesartan 150 mg PO DAILY memantine 10 mg PO BID vit C,R-Ht-cqgsa-lutein-zeaxan 250-90-40-1 mg (PreserVision AREDS-2) 1 tab PO BID Tobacco use date assessed: 09/23/23 Fall risk assessment: No Falls in past year Last assessed Fall Risk: 09/23/23 Dental Screening Dental Screen Date: 09/23/23 Did you have a dental visit in the last 12 months?: Yes Did you have a dental problem in the last 6 months where you did not have access to dental care?: No Was dental information given to patient?: Patient has dentist HPI HTN, hyperlipidemia HPI Details Patient comes in today for her follow up visit - is accompanied as usual by her Patient states that she feels okay but as before, appears quite pleasant but with her baseline degree of confusion and her is her primary caregiver and provides most of the pertinent information regarding patient during her visits Her states that she has been eating a lot of apples daily for the past few months now, sometimes as many as 5 apples in a day Patient denies any headaches or dizziness Denies any chest pains, no SOB No nausea/vomiting, no abdominal pain No change in bowel habits noted Had her follow up labs done a couple of weeks ago - to discuss her results Patient reportedly already received her vaccines for influenza, RSV and COVID booster from her local pharmacy recently [facility] Medical History (Updated 09/23/23 @ 13:13 by Tom Nava MD) Radial styloid fracture Closed fracture of radial styloid Keratotic lesion Obesity (BMI 30-39.9) Dementia Benign essential hypertension Pure hypercholesterolemia Surgical History History of colonoscopy Status post bunionectomy (~07/2007) History of section Family History Father Heart disease Mother Heart disease Diabetes mellitus Sister Diabetes mellitus Rheumatoid arthritis Sister Ovarian cancer Social History Housing: House Alcohol intake: former Patient Tobacco Use Status: Never used Tobacco e-Cigarette/Vaping Use: Never Used Second Hand Smoke Exposure: Yes service: No Current occupational status: retired Cognitive needs: No Hearing needs: No Vision needs: Yes Questionnaire PHQ-9 Over the last 2 weeks, how often have you been bothered by any of the following problems? 1. Little interest or pleasure in doing things: not at all 2. Feeling down, depressed, or hopeless: not at all 3. Trouble falling or staying asleep, or sleeping too much: not at all 4. Feeling tired or having little energy: not at all 5. Poor appetite or overeating: not at all 6. Feeling bad about yourself - or that you are a failure or have let yourself or your family down: not at all 7. Trouble concentrating on things, such as reading the newspaper or watching television: not at all 8. Moving or speaking so slowly that other people could have noticed. Or the opposite - being so fidgety or restless that you have been moving around a lot more than usual: not at all 9. Thoughts that you would be better off or of hurting yourself in some way: not at all Total score: 0 Depression Screening Interpretation: Negative Depression Screening Done: Yes 45801 - PHQ-9 Billing: Yes Source: Developed by Drs. Mello Richey, Katina Avalos, Beni Palma and colleagues, with an educational sesar from [employer]. Thrive Questionnaire Date Thrive assessed: 09/23/23 I am a: Patient What is your living situation today?: I have a steady place to live Within the past 12 months, did the food you bought not last and you didn't have the money to get more?: Never true Within the past 12 months, did you worry whether your food would run out before you got money to buy more?: Never true Do you have trouble paying for medicines?: No Do you have trouble getting transportation to medical appointments?: No Do you have trouble paying your heating and electricity bill?: No Do you have trouble taking care of your child, family member or friend?: No Do you have trouble with day-to-day activities such as bathing, preparing meals, shopping, managing finances, etc.?: No Are you currently unemployed and looking for a job?: No Are you interested in more education?: No Please select the resources that you would like help with: None Currently or been in a relationship where the following occur: no concerns reported AUDIT C Alcohol Use Questionnaire (AUDIT-C) 1. How often do you have a drink containing alcohol?: Never 3. How often do you have six or more drinks on one occasion?: Never Total Score: 0 Score Reviewed/Action Taken: Yes CLARICE-7 AMB Questionnaire CLARICE-7 Date CLARICE - 7 assessed: 09/23/23 Feeling nervous, anxious, or on edge: 0 = Not at all Not being able to stop or control worryin = Not at all Worrying too much about different things: 0 = Not at all Trouble relaxin = Not at all Being so restless that it is hard to sit still: 0 = Not at all Becoming easily annoyed or irritable: 0 = Not at all Feeling afraid as if something awful might happen: 0 = Not at all Total CLARICE-7 score (0-4 normal; 5-9 mild; 10-14 moderate; 15-21 severe): 0 Source: Developed by Drs. Mello Richey, Katina Avalos, Beni Palma and colleagues, with an educational sesar from [employer]. Review of Systems Const Details: Information here is provided primarily by patient's as patient appears confused and unable to provide more detailed info due to her dementia Denies chills, Denies difficulty sleeping, Denies fatigue, Denies fever(s) and Denies headache(s) ENT Denies dysphagia, Denies dizziness, Denies otalgia, Denies headache(s), Denies odynophagia, Denies sinus pain and Denies sore throat Card Denies chest pain, Denies palpitations and Denies dyspnea Resp Denies cough and Denies dyspnea GI Denies abdominal pain, Denies constipation, Denies dysphagia, Denies heartburn, Denies diarrhea, Denies nausea, Denies odynophagia and Denies vomiting Denies difficulty voiding, Denies nocturia, Denies dysuria and Denies urinary urgency Musc Denies abnormal gait and Denies tingling Skin/Breast Denies rash Neuro Denies abnormal gait, Denies behavioral changes, Denies dizziness, Denies headache(s), Reports memory loss (per ), Denies tingling and Denies paresthesias Psych Denies behavioral changes and Reports memory loss (per ) Endo Denies fatigue and Denies palpitations Physical exam (Primary Care) Vital Signs: Last Vital Signs Pulse 83 09/23/23 12:33 BP 122/76 09/23/23 12:33 Pulse Ox 97 09/23/23 12:33 Oxygen Delivery Method Room Air 09/23/23 12:33 BMI result Body Mass Index 33.9 Tobacco/Smoking Status: Tobacco use Status Tobacco use date assessed 09/23/23 09/23/23 12:42 Patient Tobacco Use Status Never used Tobacco 09/23/23 12:42 e-Cigarette/Vaping Use Never Used 09/23/23 12:42 PHQ-9: PHQ-9 Score PHQ-9: Total score 0 09/23/23 12:42 Depression Screening Interpretation: Negative Thrive Assessment: Date of Thrive Assessment Date Thrive assessed 09/23/23 09/23/23 12:42 Currently or been in a relationship where the following occur: no concerns reported Const General: no acute distress and alert HENMT Ears: TM's normal bilaterally and EAC's normal Throat: Yes posterior oropharynx normal and Yes tonsils normal (no TP congestion noted) Neck Neck: Yes no lymphadenopathy and Yes supple Resp Auscultation: clear to auscultation bilaterally, no rales and no wheezes Cardio Rate: regular rate Rhythm: regular rhythm Heart sounds: no murmurs GI Palpation (GI): Soft to palpation and nontender Auscultation: normal bowel sounds Extrem General: Yes no clubbing, cyanosis or edema Results Reviewed Results Reviewed: Laboratory Tests 09/09/23 09/09/23 09/09/23 09:28 09:28 09:30 WBC 6.4 Hgb 13.4 Hct 40.4 Plt Count 222 D Sodium 139 Potassium 4.1 Creatinine 0.80 Estimated GFR > 60 Fasting Glucose 93 Calcium 9.5 AST 29 ALT 28 Triglycerides 89 Cholesterol 161 LDL Cholesterol, Calc 79 HDL Cholesterol 65 Vitamin B12 1844 H 25-OH Vitamin D Total 50.5 TSH 1.85 Ur Specific [employer] 1.015 Urine Protein Negative Urine Glucose (UA) Negative Urine Blood Negative Assessment and Plan Assessment & Plan (1) Pure hypercholesterolemia: Code(s): E78.00 - Pure hypercholesterolemia, unspecified Plan: Results of her labs done a couple of weeks ago reviewed and discussed with patient and her - lipids have improved significantly from previous Reinforced low cholesterol diet Continue Atorvastatin 80 mg QD Will recheck her labs and fasting lipids in 6 months for follow up (2) Benign essential hypertension: Code(s): I10 - Essential (primary) hypertension Plan: Reinforced low sodium diet - goal is systolic BP of at least 140 to 150 mm or less Continue Irbesartan 150 mg QD (3) Dementia: Code(s): F03.90 - Unspecified dementia, unspecified severity, without behavioral disturbance, psychotic disturbance, mood disturbance, and anxiety Qualifiers: Dementia type: unspecified type Dementia behavioral disturbance: without behavioral disturbance Qualified Code(s): F03.90 - Unspecified dementia without behavioral disturbance Plan: Her states that patient's mental status and level of confusion have mostly been the same and have not changed much since her last visit Continue Donepezil 10 mg QD and Memantine 10 mg BID [place] [facility] [place] as scheduled (4) Elevated vitamin B12 level: Code(s): R74.8 - Abnormal levels of other serum enzymes Plan: They have been advised that patient's serum B12 level has gone up significantly from a couple of years ago and it is now over 1800 Patient's is instructed to take patient off her current Vitamin B12 tablets daily and just keep her on it once a week until her next follow up visit Will recheck patient's B12 level as well as a couple of other screening tests in 6 months for further evaluation (5) Obesity (BMI 30-39.9): Code(s): E66.9 - Obesity, unspecified Plan: Reinforced diet; exercise and weight loss are not really realistic given patient's age and dementia but patient's is cautioned that patient has gained over 15 pounds since her last visit 6 months ago Plan Follow up in 6 months Orders: Orders Lipid Panel 6 Months E78.00 - Pure hypercholesterolemia, unspecified Comprehensive [place]onson. Panel Fast 6 Months E78.00 - Pure hypercholesterolemia, unspecified Vitamin D 25-OH Total 6 Months E55.9 - Vitamin D deficiency, unspecified Vitamin B12 and Folate 6 Months E53.8 - Deficiency of other specified B group vitamins UA CC w/rflx Micro + Cult 6 Months R30.0 - Dysuria Complete Blood Count Auto Diff 6 Months I10 - Essential (primary) hypertension TSH reflex Free T4 6 Months E78.00 - Pure hypercholesterolemia, unspecified Erythrocyte Sedimentation Rate 6 Months R74.8 - Abnormal levels of other serum enzymes ALANA Reflex Titer and Pattern 6 Months R74.8 - Abnormal levels of other serum enzymes Coding Level of Care Code Est Pt Level 4 (76183) Diagnoses Pure hypercholesterolemia E78.00 Benign essential hypertension I10 Dementia without behavioral disturbance, unspecified dementia type F03.90 Dementia type: unspecified type Dementia behavioral disturbance: without behavioral disturbance Elevated vitamin B12 level R74.8 Obesity (BMI 30-39.9) E66.9
== END 2023-09-23 13:01 | disposition home or self-care (01) ==
PROVIDERS: PCP Internal Medicine; Visit Provider Internal Medicine
DX: E78.00 Pure hypercholesterolemia, unspecified (principal); F03.90 Unspecified dementia, unspecified severity, without behavioral disturbance, psychotic disturbance, mood disturbance, and anxiety; E66.9 Obesity, unspecified; Z68.33 Body mass index [BMI] 33.0-33.9, adult; I10 Essential (primary) hypertension; R74.8 Abnormal levels of other serum enzymes
CPT/HCPCS: 99214

== ENCOUNTER 2023-09-26 19:52 | Emergency (ER) | payer MEDICARE, SELFPAY ==
--- NOTE | ~2023-09-26 | XR_ITS ---
EXAMINATION: XR SHOULDER, LEFT CLINICAL INFORMATION: Left shoulder pain, fall. COMPARISON: None available. TECHNIQUE: 3 views of the left shoulder. FINDINGS: There is mild loss of glenohumeral and before meals joint space without spurring. No loose bodies visualized. There is no visible acute fracture or dislocation. The soft tissues are normal. XR/XR shoulder LT min 2V IMPRESSION: Mild degenerative changes left shoulder joint. No visible acute fracture or dislocation seen.
[2023-09-26 20:27] VITALS: BP 131/77; PULSE 85; RESP 18; TEMP 37.2; O2SAT 100; BMI 32.8
--- NOTE | 2023-09-26 20:35 | ED.EXTPRO ---
HPI - Extremity Problem General Chief complaint: Extremity Injury, Upper Stated complaint: Fall/L shoulder pain Time Seen by Provider: 09/26/23 21:31 Source: patient and family Mode of arrival: ambulatory Limitations: no limitations History of Present Illness HPI Narrative: patient comes to the emergency room accompanied by her family. Patient states that there today she was walking up the stairs, slipped and landed on her left shoulder. Patient denies hitting her head, denies headache or neck pain, no hip pain, no other injuries. Patient ambulatory. Patient denies being on blood thinners Related Data Home Medications Medication Instructions Recorded Confirmed donepezil 10 mg tablet 10 mg PO DAILY 10/05/20 09/23/23 vit C 250 mg-vit E 90 mg-zinc 40 1 tab PO BID 10/05/20 09/23/23 mg-copper 1 [id number]-dkdrnu capsule (PreserVision AREDS-2) memantine 10 mg tablet 10 mg PO BID 09/07/21 09/23/23 Previous Rx's Medication Instructions Recorded irbesartan 150 mg tablet 150 mg PO DAILY #90 tabs 07/17/23 atorvastatin 80 mg tablet 80 mg PO BEDTIME 90 days #90 tabs 08/12/23 acetaminophen 500 mg tablet 500 mg PO QID PRN fever or pain 09/26/23 #10 tabs ibuprofen 600 mg tablet 600 mg PO TID PRN fever or pain 09/26/23 #10 tabs tramadol 50 mg tablet 50 mg PO BID PRN pain #6 tabs 09/26/23 Allergies Allergy/AdvReac Type Severity Reaction Status Date / Time No Known Allergies Allergy Mild NOT Verified 09/23/23 12:52 APPLICABLE Review of Systems Review of Systems: Constitutional : No Weight loss, No Fever, No Chills, No Night Sweats, No Fatigue, No Malaise ENT/Mouth : No Hearing loss, No Ear Pain, No Nasal Congestion, No Sinus Pain, No Hoarseness, No sore throat, No Rhinorrhea, No Swallowing Difficulty Eyes: No Eye Pain, No Swelling, No Redness, No Foreign Body, No Discharge, No Vision Changes Cardiovascular : No Chest Pain, No SOB, No Dyspnea on Exertion, No Orthopnea, No Edema, No Palpitations Respiratory : No Cough, No Sputum, No Wheezing, No Smoke Exposure, No Dyspnea Gastrointestinal : No Nausea, No Vomiting, No Diarrhea, No Constipation, No abdominal Pain, No Hematochezia, No Melena Genitourinary : no irregular bleeding, No Dysuria, No Urinary Frequency, No Hematuria, No Urinary Incontinence, No Urgency, No Flank Pain, No Urinary Flow Changes, No Hesitancy Musculoskeletal : complaining of left shoulder pain,No Myalgias, No Joint Swelling Skin : No Skin Lesions, No rash Neuro : No Weakness, No Numbness, No Paresthesias, No Loss of Consciousness, No Dizziness, No Headache Psych : No Anxiety/Panic, No Depression, No SI/HI/AH/VH, No Social Issues, Heme/Lymph: No Bruising, No Bleeding,No Lymphadenopathy Endocrine : No Polyuria, No Polydipsia, No Temperature Intolerance [facility] Past Medical History Medical History Radial styloid fracture Closed fracture of radial styloid Keratotic lesion Obesity (BMI 30-39.9) Dementia Benign essential hypertension Pure hypercholesterolemia Surgical History History of colonoscopy Status post bunionectomy (~07/2007) History of section Family History Family History Father Heart disease Mother Heart disease Diabetes mellitus Sister Diabetes mellitus Rheumatoid arthritis Sister Ovarian cancer Social History Social History Housing: House Alcohol intake: former Patient Tobacco Use Status: Never used Tobacco e-Cigarette/Vaping Use: Never Used Second Hand Smoke Exposure: Yes Advance Directives: Yes Advance Directives on File: Yes Advance Directives Date on File: 09/16/23 service: No Current occupational status: retired Cognitive needs: No Hearing needs: No Vision needs: Yes Physical Exam Vital Signs: Vital Signs: Last Vital Signs Temp 98.9 F 09/26/23 20:27 Pulse 85 09/26/23 20:27 Resp 18 09/26/23 20:27 BP 131/77 09/26/23 20:27 Pulse Ox 100 09/26/23 20:27 O2 Del Method Room Air 09/26/23 20:27 BMI result Body Mass Index 32.8 Const: Other: Appearance: Alert. Oriented X3. No acute distress. Eyes: Pupils equal, round and reactive to light. ENT: Pharynx normal. Neck: Normal inspection. Neck supple. No lymph nodes noted. No crepitus CVS: Normal heart rate and rhythm. Pulses normal. Normal S1 and S2 Respiratory: No respiratory distress. Breath sounds normal. No Wheezing. No rales Abdomen: Soft and nontender. No rigidity. No distention. Skin: Skin warm and dry. Normal skin color. Normal skin turgor. Extremities: No lower extremity edema. No Lacerations. No Rash. Patient is able to abduct the left arm to approximately 30 degrees. Patient states it pinches if she tries to push any further. Patient is able to hold her arm up. Neuro: Oriented X 3. No motor deficit. No sensory deficit. Moving all extremities. No slurred speech. CN 2 through 12 grossly intact Psych: calm, cooperative, normal affect Course Course Course Narrative: RME performed by Darlene Heller PA-C. Patient is a 78 year old assigned female at presenting to the emergency department with left shoulder pain after falling up the stairs. Imaging ordered. Patient placed back in the waiting room pending room availability and results. Medical Decision Making Medical Decision Making [facility] Narrative: - I discussed the physical exam with the patient, patient likely has a rotator cuff injury. - My interpretation of x-ray: Shoulder aligned, no dislocation, no humeral fracture - patient given 1 dose of p.o. tramadol. Patient will be going home with her and daughter - patient will follow-up with orthopedics Differential Diagnosis Differential Diagnoses: The differential diagnosis associated with the presentation includes ( shoulder contusion, dislocation, fracture) Independent Interpretation I performed an independent interpretation of an: Plain X-Ray Radiology Impression Discussion of test interpretation with radiology: I have reviewed the radiologist's reading. Radiologist Impression: There is mild loss of glenohumeral and before meals joint space without spurring. No loose bodies visualized. There is no visible acute fracture or dislocation. The soft tissues are normal. XR/XR shoulder LT min 2V IMPRESSION: Mild degenerative changes left shoulder joint. No visible acute fracture or dislocation seen. Discharge Plan Discharge Clinical Impression: Contusion of left shoulder Patient Disposition: Home, Self-Care Instructions: Shoulder Pain (ED) Additional Instructions: Please follow-up with your primary care physician tomorrow. If you have any worsening or new symptoms, please return to the emergency room or call 911 Prescriptions: New tramadol 50 mg tablet 50 mg PO BID PRN (Reason: pain) Qty: 6 0RF ibuprofen 600 mg tablet 600 mg PO TID PRN (Reason: fever or pain) Qty: 10 0RF acetaminophen 500 mg tablet 500 mg PO QID PRN (Reason: fever or pain) Qty: 10 0RF No Action irbesartan 150 mg tablet 150 mg PO DAILY Qty: 90 1RF atorvastatin 80 mg tablet 80 mg PO BEDTIME 90 Days Qty: 90 3RF donepezil 10 mg tablet 10 mg PO DAILY PreserVision AREDS-2 [id number] ca-eftx-qe-mg capsule 1 tab PO BID Rx Instructions: give with food (meal/snack) memantine 10 mg tablet 10 mg PO BID Referrals: Lalitha Butler PA-C [Physician Director Audience Marketing] - 09/30/23
[2023-09-26] MEDS: traMADoL HCL 50 MG TABLET PO (21:52)
[2023-09-26 22:02] VITALS: RESP 16
== END 2023-09-26 22:04 | disposition home or self-care (01) ==
PROVIDERS: Emergency Provider Emergency Medicine; PCP Internal Medicine
DX: S40.012A Contusion of left shoulder, initial encounter (principal); W01.0XXA Fall on same level from slipping, tripping and stumbling without subsequent striking against object, initial encounter; Y93.79 Activity, other specified sports and athletics; Y92.410 Unspecified street and highway as the place of occurrence of the external cause; Y99.2 Volunteer activity; Z79.899 Other long term (current) drug therapy
CPT/HCPCS: 73030; 99283

== ENCOUNTER 2023-10-20 10:21 | Outpatient (AMB) | payer MEDICARE, SELFPAY ==
[2023-10-20 10:23] VITALS: BP 124/78; PULSE 83; O2SAT 95; BMI 34.1
--- NOTE | 2023-10-20 10:23 | A.OFFPC_ITS ---
Vital Signs 10/20/23 10:23 Height 5 ft Weight 174 lb 8 oz BMI 34.1 BP 124/78 Blood Pressure Location Lt brachial Position Sitting Pulse 83 Pulse Source Pulse Oximeter Pulse Oximetry (%) 95 Oxygen Delivery Method Room Air Intake Visit Reasons: cataract surgery 10/29 Conversion Developer Required: No Accompanied by: Self / Same As Patient Allergies No Known Allergies Allergy (Mild, Verified 10/20/23 10:56) NOT APPLICABLE Medication List - Last Reconciled 10/20/23 by Tom Nava MD acetaminophen 500 mg PO QID PRN atorvastatin 80 mg PO BEDTIME 90 days donepezil 10 mg PO DAILY ibuprofen 600 mg PO TID PRN irbesartan 150 mg PO DAILY memantine 10 mg PO BID tramadol 50 mg PO BID PRN vit C,X-Hn-xjbyu-lutein-zeaxan 250-90-40-1 mg (PreserVision AREDS-2) 1 tab PO BID Tobacco use date assessed: 10/20/23 Fall risk assessment: 1 Fall in past year Last assessed Fall Risk: 10/20/23 Dental Screening Dental Screen Date: 10/20/23 Did you have a dental visit in the last 12 months?: Yes Did you have a dental problem in the last 6 months where you did not have access to dental care?: No Was dental information given to patient?: Patient has dentist HPI cataract surgery 10/29 HPI Details Patient comes in today at the request of Dr. Brian Noble of the [facility] for a preoperative medical examination for clearance for surgery She is scheduled for cataract extraction/phacoemulsification with IOL of the right eye under MAC on 10/29/2023, followed by the same procedure on the left eye a few weeks later on 11/26/2023 Patient states that she feels okay She is as usual at her baseline degree of confusion and her , who is her primary caregiver, provides or corroborates most of the pertinent information regarding patient during her visit today Patient denies any headaches or dizziness Denies any chest pains, no SOB No nausea/vomiting, no abdominal pain No change in bowel habits noted PFSH Medical History Radial styloid fracture Closed fracture of radial styloid Keratotic lesion Obesity (BMI 30-39.9) Dementia Benign essential hypertension Pure hypercholesterolemia Surgical History History of colonoscopy Status post bunionectomy (~07/2007) History of section Family History Father Heart disease Mother Heart disease Diabetes mellitus Sister Diabetes mellitus Rheumatoid arthritis Sister Ovarian cancer Social History Housing: House Alcohol intake: former Patient Tobacco Use Status: Never used Tobacco e-Cigarette/Vaping Use: Never Used Second Hand Smoke Exposure: Yes Advance Directives Date on File: 09/16/23 service: No Current occupational status: retired Cognitive needs: No Hearing needs: No Vision needs: Yes Questionnaire PHQ-9 Over the last 2 weeks, how often have you been bothered by any of the following problems? 1. Little interest or pleasure in doing things: not at all 2. Feeling down, depressed, or hopeless: not at all 3. Trouble falling or staying asleep, or sleeping too much: not at all 4. Feeling tired or having little energy: not at all 5. Poor appetite or overeating: not at all 6. Feeling bad about yourself - or that you are a failure or have let yourself or your family down: not at all 7. Trouble concentrating on things, such as reading the newspaper or watching television: not at all 8. Moving or speaking so slowly that other people could have noticed. Or the opposite - being so fidgety or restless that you have been moving around a lot more than usual: not at all 9. Thoughts that you would be better off or of hurting yourself in some way: not at all Total score: 0 Depression Screening Interpretation: Negative Depression Screening Done: Yes 19862 - PHQ-9 Billing: Yes Source: Developed by Drs. Mello Richey, Katina Avalos, Beni Palma and colleagues, with an educational sesar from [employer]. Thrive Questionnaire Date Thrive assessed: 10/20/23 I am a: Patient What is your living situation today?: I have a steady place to live Within the past 12 months, did the food you bought not last and you didn't have the money to get more?: Never true Within the past 12 months, did you worry whether your food would run out before you got money to buy more?: Never true Do you have trouble paying for medicines?: No Do you have trouble getting transportation to medical appointments?: No Do you have trouble paying your heating and electricity bill?: No Do you have trouble taking care of your child, family member or friend?: No Do you have trouble with day-to-day activities such as bathing, preparing meals, shopping, managing finances, etc.?: No Are you currently unemployed and looking for a job?: No Are you interested in more education?: No Please select the resources that you would like help with: None Currently or been in a relationship where the following occur: no concerns reported AUDIT C Alcohol Use Questionnaire (AUDIT-C) 1. How often do you have a drink containing alcohol?: Never 3. How often do you have six or more drinks on one occasion?: Never Total Score: 0 Score Reviewed/Action Taken: Yes CLARICE-7 AMB Questionnaire CLAIRCE-7 Date CLARICE - 7 assessed: 10/20/23 Feeling nervous, anxious, or on edge: 0 = Not at all Not being able to stop or control worryin = Not at all Worrying too much about different things: 0 = Not at all Trouble relaxin = Not at all Being so restless that it is hard to sit still: 0 = Not at all Becoming easily annoyed or irritable: 0 = Not at all Feeling afraid as if something awful might happen: 0 = Not at all Total CLARICE-7 score (0-4 normal; 5-9 mild; 10-14 moderate; 15-21 severe): 0 Source: Developed by Drs. Mello Richey, Katina Avalos, Beni Palma and colleagues, with an educational sesar from [employer]. Review of Systems Const Details: Information here is provided primarily by patient's as patient appears confused and unable to provide more detailed info due to her dementia Denies chills, Denies difficulty sleeping, Denies fatigue, Denies fever(s) and Denies headache(s) Eyes Reports blurry vision ENT Denies dysphagia, Denies dizziness, Denies otalgia, Denies headache(s), Denies odynophagia and Denies sore throat Card Denies chest pain, Denies palpitations and Denies dyspnea Resp Denies cough and Denies dyspnea GI Denies abdominal pain, Denies constipation, Denies dysphagia, Denies heartburn, Denies diarrhea, Denies nausea, Denies odynophagia and Denies vomiting Denies difficulty voiding, Denies nocturia, Denies dysuria and Denies urinary urgency Musc Denies abnormal gait and Denies tingling Skin/Breast Denies rash Neuro Denies abnormal gait, Denies behavioral changes, Denies dizziness, Denies headache(s), Reports memory loss (per ), Denies tingling and Denies paresthesias Psych Denies behavioral changes and Reports memory loss (per ) Endo Denies fatigue and Denies palpitations Physical exam (Primary Care) Vital Signs: Last Vital Signs Pulse 83 10/20/23 10:23 BP 124/78 10/20/23 10:23 Pulse Ox 95 10/20/23 10:23 Oxygen Delivery Method Room Air 10/20/23 10:23 BMI result Body Mass Index 34.1 Tobacco/Smoking Status: Tobacco use Status Tobacco use date assessed 10/20/23 10/20/23 10:29 Patient Tobacco Use Status Never used Tobacco 10/20/23 10:29 e-Cigarette/Vaping Use Never Used 10/20/23 10:29 PHQ-9: PHQ-9 Score PHQ-9: Total score 0 10/20/23 10:29 Depression Screening Interpretation: Negative Thrive Assessment: Date of Thrive Assessment Date Thrive assessed 10/20/23 10/20/23 10:29 Currently or been in a relationship where the following occur: no concerns reported Const General: no acute distress and alert HENMT Ears: TM's normal bilaterally and EAC's normal Throat: Yes posterior oropharynx normal and Yes tonsils normal (no TP congestion noted) Neck Neck: Yes no lymphadenopathy and Yes supple Resp Auscultation: clear to auscultation bilaterally, no rales and no wheezes Cardio Rate: regular rate Rhythm: regular rhythm Heart sounds: no murmurs GI Palpation (GI): Soft to palpation and nontender Auscultation: normal bowel sounds Extrem General: Yes no clubbing, cyanosis or edema Results Reviewed Results Reviewed: Laboratory Tests 09/09/23 09/09/23 09/09/23 09:28 09:28 09:30 WBC 6.4 Hgb 13.4 Hct 40.4 Plt Count 222 D Sodium 139 Potassium 4.1 Creatinine 0.80 Estimated GFR > 60 Fasting Glucose 93 Calcium 9.5 AST 29 ALT 28 Ur Specific [place] Urine Protein Negative Urine Glucose (UA) Negative Urine Blood 09/09/23 09:30 WBC Hgb Hct Plt Count Sodium Potassium Creatinine Estimated GFR Fasting Glucose Calcium AST ALT Ur Specific [place] 1.015 Urine Protein Urine Glucose (UA) Urine Blood Negative Assessment and Plan Assessment & Plan (1) Preoperative examination: Code(s): Z01.818 - Encounter for other preprocedural examination Plan: Patient presents with acceptable risks for planned low cardiac risk procedure (2) Cataracts, bilateral: Code(s): H26.9 - Unspecified cataract Qualifiers: Cataract type: unspecified Qualified Code(s): H26.9 - Unspecified cataract Plan: She is scheduled for cataract extraction/phacoemulsification with IOL of the right eye under MAC on 10/29/2023, followed by the same procedure on the left eye a few weeks later on 11/26/[address] Brian Noble (3) Benign essential hypertension: Code(s): I10 - Essential (primary) hypertension Plan: Reinforced low sodium diet - goal is systolic BP of at least 140 to 150 mm or less Continue Irbesartan 150 mg QD (4) Pure hypercholesterolemia: Code(s): E78.00 - Pure hypercholesterolemia, unspecified Plan: Reinforced low cholesterol diet Continue Atorvastatin 80 mg QD (5) Dementia: Code(s): F03.90 - Unspecified dementia, unspecified severity, without behavioral disturbance, psychotic disturbance, mood disturbance, and anxiety Qualifiers: Dementia type: unspecified type Dementia behavioral disturbance: without behavioral disturbance Qualified Code(s): F03.90 - Unspecified dementia without behavioral disturbance Plan: Her states that patient's mental status and level of confusion have mostly been the same and have not changed much over the past year or two Continue Donepezil 10 mg QD and Memantine 10 mg BID [place] [facility] [place] as scheduled (6) Elevated vitamin B12 level: Code(s): R74.8 - Abnormal levels of other serum enzymes Plan: Continue Vitamin B12 tablets once a week (7) Obesity (BMI 30-39.9): Code(s): E66.9 - Obesity, unspecified Plan: Reinforced diet; exercise and weight loss are not really realistic given patient's age and dementia Plan Patient is currently medically optimized and does not appear to have any contraindications to undergo planned low cardiac risk procedures in a couple of weeks She (and her ) has been reminded NOT to take any NSAIDs for a week prior to her scheduled eye surgeries Patient is MEDICALLY CLEARED for cataract surgery on BOTH eyes as scheduled over the next few weeks Follow up as scheduled in March 2024 Coding Level of Care Code Est Pt Level 3 (24991) Diagnoses Preoperative examination Z01.818 Cataract of both eyes, unspecified cataract type H26.9 Cataract type: unspecified Benign essential hypertension I10 Pure hypercholesterolemia E78.00 Dementia without behavioral disturbance, unspecified dementia type F03.90 Dementia type: unspecified type Dementia behavioral disturbance: without behavioral disturbance Elevated vitamin B12 level R74.8 Obesity (BMI 30-39.9) E66.9
== END 2023-10-20 11:05 | disposition home or self-care (01) ==
PROVIDERS: PCP Internal Medicine; Visit Provider Internal Medicine
DX: E78.00 Pure hypercholesterolemia, unspecified (principal); F03.90 Unspecified dementia, unspecified severity, without behavioral disturbance, psychotic disturbance, mood disturbance, and anxiety; E66.9 Obesity, unspecified; Z68.34 Body mass index [BMI] 34.0-34.9, adult; Z01.818 Encounter for other preprocedural examination; H26.9 Unspecified cataract; I10 Essential (primary) hypertension; R74.8 Abnormal levels of other serum enzymes
CPT/HCPCS: 99213

== ENCOUNTER 2023-11-18 12:04 | Outpatient (REF) | payer MEDICARE, SELFPAY ==
--- NOTE | ~2023-11-18 | MM_ITS ---
EXAMINATION: MM SCREENING DIGITAL BREAST TOMOSYNTHESIS, BILATERAL CLINICAL INFORMATION: Screening. Asymptomatic. COMPARISON: Mammography: This study is compared with prior exams dating back to 2019. TECHNIQUE: Digital breast tomosynthesis is performed in both the craniocaudal and mediolateral oblique views along with computer-aided detection (CAD). Synthesized 2D images are generated from the tomosynthesis. FINDINGS: The breasts are almost entirely fatty (ACR BI-RADS breast composition Category a). There are no significant masses, abnormal calcifications, or other abnormalities. Few, bilateral, benign secretory calcifications are present in each breast. MM/MM tomosynthesis screening BI IMPRESSION: No mammographic evidence of malignancy. ASSESSMENT: BI-RADS BI-RADS 2 - Benign Findings RECOMMENDATION: Routine annual mammography screening. 1 year F/U This examination should not preclude the clinical evaluation of a suspicious palpable abnormality. This patient's information was entered into a reminder system with a target due date for their next mammogram.
== END 2023-11-18 12:05 | disposition home or self-care (01) ==
LOC: HO.MAMMO 12:04
PROVIDERS: PCP Internal Medicine; Visit Provider Internal Medicine
DX: Z12.31 Encounter for screening mammogram for malignant neoplasm of breast (principal)
CPT/HCPCS: 77063; 77067

== ENCOUNTER → 2023-11-18 12:15 | Outpatient (BNV) | payer MEDICARE, SELFPAY | PROVIDERS: PCP Internal Medicine; Visit Provider Radiology Diagnostic Radiology | DX: Z12.31 Encounter for screening mammogram for malignant neoplasm of breast (principal) | CPT/HCPCS: 77063; 77067 ==

== ENCOUNTER 2024-03-17 07:55 | Outpatient (REF) | payer MEDICARE, SELFPAY ==
[2024-03-17 08:07] LABS: MANUAL DIFF FLAG NO
[2024-03-17 08:29] LABS: Basophils Absolute Auto 0.1 X10*3/uL (0.0-0.2); Basophils Percent Auto 0.9 % (0-2); Eosinophils Absolute Auto 0.3 X10*3/uL (0.0-0.4); Eosinophils Percent Auto 4.6 % (0-4); Hemoglobin 13.8 g/dl (12.0-16.0); Imm Gran Abs Auto 0.02 X10*3/uL (0.00-0.03); Imm Gran Pct Auto 0.3 % (0.0-0.4); Lymphocytes Absolute Auto 2.1 X10*3/uL (1.2-4.9); Mean Corpuscular HGB Conc 33.7 g/dl (31.0-35.0); Mean Corpuscular Hemoglobin 31.7 pg (27.0-33.0); Mean Platelet Volume 10.8 fL (9.4-12.3); Monocytes Absolute Auto 0.7 X10*3/uL (0.1-1.2); Monocytes Percent Auto 10.4 % (2-11); Neutrophils Absolute Auto 3.2 x10*3/uL (2.0-8.3); Neutrophils Percent Auto 50.8 % (45-73); Platelet Count 193 X10*3/uL (160-400); Red Blood Count 4.36 X10*6/uL (4.20-5.50); Red Cell Distribution Width 12.6 % (11.0-16.0); White Blood Count 6.3 X10*3/uL (4.8-10.8)
[2024-03-17 09:08] LABS: Alanine Aminotransferase 41 U/L (0-31); Albumin Level 3.7 g/dL (3.5-5.0); Alkaline Phosphatase 123 U/L (39-117); Anion Gap 15 (12-20); Aspartate Amino Transferase 32 U/L (5-31); Bilirubin Total 0.5 mg/dL (0.0-1.0); Blood Urea Nitrogen 27 mg/dL (9-16); Calcium 9.2 mg/dL (8.4-10.2); Carbon Dioxide 23 mmol/L (22-29); Chloride 105 mmol/L (96-108); Cholesterol 170 mg/dL (<200); Estimated Glomerular Filt Rate > 60; Glucose Fasting 101 mg/dL (60-99); HDL Cholesterol 67 mg/dL (>40); LDL Cholesterol Calculated 87 mg/dL (<100); Potassium 4.1 mmol/L (3.3-5.1); Sodium 139 mmol/L (135-145); Total Protein 6.7 g/dL (6.5-8.0); Triglycerides 81 mg/dL (<150)
[2024-03-17 09:15] LABS: Erythrocyte Sedimentation Rate 13 MM/HR (0-20)
[2024-03-17 09:23] LABS: TSH reflex Free T4 2.28 uIU/mL (0.32-4.0); Vitamin D 25-OH Total 43.4 ng/mL (>30)
[2024-03-17 09:27] LABS: Folate 6.7 ng/mL (> or = 4.0); Vitamin B12 601 pg/mL (200-900)
[2024-03-21 14:53] LABS: Anti Nuclear Antibody Screen NEGATIVE (NEGATIVE)
== END 2024-03-17 07:56 | disposition home or self-care (01) ==
LOC: HO.LAB 07:55
PROVIDERS: PCP Internal Medicine; Visit Provider Internal Medicine
DX: E53.8 Deficiency of other specified B group vitamins (principal); R30.0 Dysuria; E55.9 Vitamin D deficiency, unspecified; E78.00 Pure hypercholesterolemia, unspecified; R74.8 Abnormal levels of other serum enzymes
CPT/HCPCS: 36415; 80053; 80061; 82306; 82607; 82746; 84443; 85025; 85652; 86038

== ENCOUNTER 2024-03-24 13:14 | Outpatient (AMB) | payer MEDICARE, SELFPAY ==
[2024-03-24 13:15] VITALS: BP 114/72; PULSE 71; O2SAT 94; BMI 36.5
--- NOTE | 2024-03-24 13:15 | A.OFFPC_ITS ---
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 Required: No Allergies No Known Allergies Allergy (Mild, Verified 03/24/24 13:47) NOT APPLICABLE Medication List - Last Reconciled 03/24/24 by Tom Nava MD acetaminophen 500 mg PO QID PRN atorvastatin 80 mg PO BEDTIME 90 days donepezil 10 mg PO DAILY ibuprofen 600 mg PO TID PRN irbesartan 150 mg PO DAILY memantine 10 mg PO BID tramadol 50 mg PO BID PRN vit C,H-Ck-huexr-lutein-zeaxan 250-90-40-1 mg (PreserVision AREDS-2) 1 tab PO BID Tobacco use date assessed: 03/24/24 Fall risk assessment: No Falls in past year Last assessed Fall Risk: 03/24/24 Dental Screening Dental Screen Date: 10/20/23 HPI dementia, hyperlipidemia HPI Details Patient comes in today for her follow up visit - is accompanied as usual by her Patient states that she feels okay but as before, appears quite pleasant but with her baseline degree of confusion Her is her primary caregiver and provides most of the pertinent information regarding patient during her visits Her states that she has been eating a lot of apples daily for the past few months now, sometimes as many as 5 apples in a day He adds that patient seems to be hungry all the time lately and seems to be constantly eating or looking for food - she has gained a lot of weight as a result since her last visit Patient denies any headaches or dizziness Denies any chest pains, no SOB No nausea/vomiting, no abdominal pain No change in bowel habits noted She had her follow up labs done last week - to discuss her results [facility] Medical History Radial styloid fracture Closed fracture of radial styloid Keratotic lesion Obesity (BMI 30-39.9) Dementia Benign essential hypertension Pure hypercholesterolemia Surgical History History of colonoscopy Status post bunionectomy (~07/2007) History of section Family History Father Heart disease Mother Heart disease Diabetes mellitus Sister Diabetes mellitus Rheumatoid arthritis Sister Ovarian cancer Social History Housing: House Alcohol intake: former Patient Tobacco Use Status: Never used Tobacco e-Cigarette/Vaping Use: Never Used Second Hand Smoke Exposure: Yes Advance Directives Date on File: 09/16/23 service: No Current occupational status: retired Cognitive needs: No Hearing needs: No Vision needs: Yes Questionnaire Thrive Questionnaire Date Thrive assessed: 10/20/23 I am a: Patient What is your living situation today?: I have a steady place to live Within the past 12 months, did the food you bought not last and you didn't have the money to get more?: Never true Within the past 12 months, did you worry whether your food would run out before you got money to buy more?: Never true Do you have trouble paying for medicines?: No Do you have trouble getting transportation to medical appointments?: No Do you have trouble paying your heating and electricity bill?: No Do you have trouble taking care of your child, family member or friend?: No Do you have trouble with day-to-day activities such as bathing, preparing meals, shopping, managing finances, etc.?: No Are you currently unemployed and looking for a job?: No Are you interested in more education?: No Please select the resources that you would like help with: None Currently or been in a relationship where the following occur: no concerns reported THRIVE Score: 0 AUDIT C Alcohol Use Questionnaire (AUDIT-C) 1. How often do you have a drink containing alcohol?: Never 3. How often do you have six or more drinks on one occasion?: Never Total Score: 0 Score Reviewed/Action Taken: Yes CLARICE-7 AMB Questionnaire CLARICE-7 Date CLARICE - 7 assessed: 10/20/23 Source: Developed by Drs. Mello Richey, Katina Avalos, Beni Palma and colleagues, with an educational sesar from [employer]. Review of Systems Const Details: Information here is provided primarily by patient's as patient appears confused and unable to provide more detailed info due to her dementia Denies chills, Denies difficulty sleeping, Denies fatigue, Denies fever(s) and Denies headache(s) ENT Denies dysphagia, Denies dizziness, Denies otalgia, Denies headache(s), Denies odynophagia and Denies sore throat Card Denies chest pain, Denies palpitations and Denies dyspnea Resp Denies cough and Denies dyspnea GI Denies abdominal pain, Denies constipation, Denies dysphagia, Denies heartburn, Denies diarrhea, Denies nausea, Denies odynophagia and Denies vomiting Denies difficulty voiding, Denies nocturia, Denies dysuria and Denies urinary urgency Musc Denies tingling Skin/Breast Denies rash Neuro Denies behavioral changes, Denies dizziness, Denies headache(s), Reports memory loss (per ), Denies tingling and Denies paresthesias Psych Denies behavioral changes and Reports memory loss (per ) Endo Denies fatigue and Denies palpitations Physical exam (Primary Care) Vital Signs: Last Vital Signs Pulse 71 03/24/24 13:15 BP 114/72 03/24/24 13:15 Pulse Ox 94 03/24/24 13:15 Oxygen Delivery Method Room Air 03/24/24 13:15 BMI result Body Mass Index 36.5 Tobacco/Smoking Status: Tobacco use Status Tobacco use date assessed 03/24/24 03/24/24 13:16 Patient Tobacco Use Status Never used Tobacco 03/24/24 13:16 e-Cigarette/Vaping Use Never Used 03/24/24 13:16 Thrive Assessment: Date of Thrive Assessment Date Thrive assessed 10/20/23 03/24/24 13:16 Currently or been in a relationship where the following occur: no concerns reported Const General: no acute distress and alert HENMT Ears: TM's normal bilaterally and EAC's normal Throat: Yes posterior oropharynx normal and Yes tonsils normal (no TP congestion noted) Neck Neck: Yes no lymphadenopathy and Yes supple Thyroid: Thyroid normal Resp Auscultation: clear to auscultation bilaterally, no rales and no wheezes Cardio Rate: regular rate Rhythm: regular rhythm Heart sounds: no murmurs GI Palpation (GI): Soft to palpation and nontender Auscultation: normal bowel sounds General: Yes no CVA tenderness Back/Spine/Pelvis Back: no CVA tenderness Skin Rashes: no rashes Extrem General: Yes no clubbing, cyanosis or edema Results Reviewed Results Reviewed: Laboratory Tests 03/17/24 08:04 WBC 6.3 Hgb 13.8 Hct 41.0 Plt Count 193 Sodium 139 Potassium 4.1 Creatinine 0.81 Estimated GFR > 60 Fasting Glucose 101 H AST 32 H ALT 41 H Alkaline Phosphatase 123 H Triglycerides 81 Cholesterol 170 LDL Cholesterol, Calc 87 HDL Cholesterol 67 Vitamin B12 601 25-OH Vitamin D Total 43.4 TSH 2.28 Assessment and Plan Assessment & Plan (1) Pure hypercholesterolemia: Code(s): E78.00 - Pure hypercholesterolemia, unspecified Plan: Results of her labs done last week reviewed and discussed with patient and her - they are advised that patient's numbers have increased slightly from previous, likely due to her recent weight gain Reinforced low cholesterol diet Continue Atorvastatin 80 mg QD Will recheck her labs and fasting lipids in 6 months for follow up (2) Benign essential hypertension: Code(s): I10 - Essential (primary) hypertension Plan: Reinforced low sodium diet - goal is systolic BP of at least 140 to 150 mm or less Continue Irbesartan 150 mg QD (3) Elevated LFTs: Code(s): R79.89 - Other specified abnormal findings of blood chemistry Plan: They are cautioned that patient's LFTs are now also starting to rise on her recent labs, most likely due to her weight gain Patient's is cautioned about this and advised that he should try to figure out some ways to distract patient and keep her busy so she is not looking for food to eat all the time Will recheck her LFTs in 6 months for follow up (4) Impaired fasting glucose: Code(s): R73.01 - Impaired fasting glucose Plan: Patient's FBS is also slightly elevated on her recent labs, likely in relation to her weight gain Reinforced diet and patient's is encouraged to take patient out for walks often, weather permitting (5) Dementia: Code(s): F03.90 - Unspecified dementia, unspecified severity, without behavioral disturbance, psychotic disturbance, mood disturbance, and anxiety Qualifiers: Dementia type: unspecified type Dementia behavioral disturbance: without behavioral disturbance Qualified Code(s): F03.90 - Unspecified dementia without behavioral disturbance Plan: Her states that patient's mental status and level of confusion have mostly been the same and have not changed much over the past couple of years Continue Donepezil 10 mg QD and Memantine 10 mg BID Follow up with neurology at [facility] [place] (Dr. Sanchez) as scheduled (6) Elevated vitamin B12 level: Code(s): R74.8 - Abnormal levels of other serum enzymes Plan: They have previously been advised that patient's serum B12 level has gone up significantly over the past couple of years and they were instructed to take patient off her current Vitamin B12 tablets daily and just keep her on it once a week Her B12 level has dropped down to 601 on her recent labs Will recheck patient's B12 level in 6 months for follow up (7) Obesity (BMI 30-39.9): Code(s): E66.9 - Obesity, unspecified Plan: Reinforced diet; exercise and weight loss are not really realistic given patient's age and dementia but patient's is cautioned that patient has again gained over a lot of weight since her last visit 6 months ago Plan Follow up in 6 months Orders: Orders Comprehensive [place]. Panel Fast 6 Months E78.00 - Pure hypercholesterolemia, unspecified, R79.89 - Other specified abnormal findings of blood chemistry UA CC w/rflx Micro + Cult 6 Months R30.0 - Dysuria Vitamin B12 and Folate 6 Months E53.8 - Deficiency of other specified B group vitamins Complete Blood Count Auto Diff 6 Months D64.9 - Anemia, unspecified Lipid Panel 6 Months E78.00 - Pure hypercholesterolemia, unspecified Hemoglobin A1c 6 Months R73.01 - Impaired fasting glucose TSH reflex Free T4 6 Months E78.00 - Pure hypercholesterolemia, unspecified Vitamin D 25-OH Total 6 Months E55.9 - Vitamin D deficiency, unspecified Coding Level of Care Code Est Pt Level 4 (75498) Complex EM visit Add On G2211 Diagnoses Pure hypercholesterolemia E78.00 Benign essential hypertension I10 Elevated LFTs R79.89 Impaired fasting glucose R73.01 Dementia without behavioral disturbance, unspecified dementia type F03.90 Dementia type: unspecified type Dementia behavioral disturbance: without behavioral disturbance Elevated vitamin B12 level R74.8 Obesity (BMI 30-39.9) E66.9
== END 2024-03-24 13:58 | disposition home or self-care (01) ==
PROVIDERS: PCP Internal Medicine; Visit Provider Internal Medicine
DX: E78.00 Pure hypercholesterolemia, unspecified (principal); I10 Essential (primary) hypertension; F03.90 Unspecified dementia, unspecified severity, without behavioral disturbance, psychotic disturbance, mood disturbance, and anxiety; R74.01 Elevation of levels of liver transaminase levels; R73.01 Impaired fasting glucose; R74.8 Abnormal levels of other serum enzymes
CPT/HCPCS: 99214; G2211

== ENCOUNTER 2024-07-20 10:12 | Outpatient (AMB) | payer MEDICARE, SELFPAY ==
[2024-07-20 10:14] VITALS: BP 124/76; PULSE 85; O2SAT 94; BMI 37.7
--- NOTE | 2024-07-20 10:14 | A.OFFPC_ITS ---
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 Accompanied by: Self / Same As Patient Allergies No Known Allergies Allergy (Mild, Verified 07/20/24 10:15) NOT APPLICABLE Tobacco use date assessed: 07/20/24 Fall risk assessment: No Falls in past year Last assessed Fall Risk: 07/20/24 Dental Screening Dental Screen Date: 07/20/24 [facility] Medical History Radial styloid fracture Closed fracture of radial styloid Keratotic lesion Obesity (BMI 30-39.9) Dementia Benign essential hypertension Pure hypercholesterolemia Surgical History History of colonoscopy Status post bunionectomy (~07/2007) History of section Family History Father Heart disease Mother Heart disease Diabetes mellitus Sister Diabetes mellitus Rheumatoid arthritis Sister Ovarian cancer Social History Housing: House Alcohol intake: former Patient Tobacco Use Status: Never used Tobacco e-Cigarette/Vaping Use: Never Used Second Hand Smoke Exposure: Yes Advance Directives Date on File: 09/16/23 service: No Current occupational status: retired Cognitive needs: No Hearing needs: No Vision needs: Yes Questionnaire PHQ-9 Over the last 2 weeks, how often have you been bothered by any of the following problems? 1. Little interest or pleasure in doing things: not at all 2. Feeling down, depressed, or hopeless: not at all 3. Trouble falling or staying asleep, or sleeping too much: not at all 4. Feeling tired or having little energy: not at all 5. Poor appetite or overeating: not at all 6. Feeling bad about yourself - or that you are a failure or have let yourself or your family down: not at all 7. Trouble concentrating on things, such as reading the newspaper or watching television: not at all 8. Moving or speaking so slowly that other people could have noticed. Or the opposite - being so fidgety or restless that you have been moving around a lot more than usual: not at all 9. Thoughts that you would be better off or of hurting yourself in some way: not at all Total score: 0 Depression Screening Interpretation: Negative Depression Screening Done: Yes 99715 - PHQ-9 Billing: Yes Source: Developed by Drs. Mello Richey, Katina Avalos, Beni Palma and colleagues, with an educational sesar from [employer]. Thrive Questionnaire Date Thrive assessed: 07/20/24 I am a: Patient What is your living situation today?: I have a steady place to live Within the past 12 months, did the food you bought not last and you didn't have the money to get more?: Never true Within the past 12 months, did you worry whether your food would run out before you got money to buy more?: Never true Do you have trouble paying for medicines?: No Do you have trouble getting transportation to medical appointments?: No Do you have trouble paying your heating and electricity bill?: No Do you have trouble taking care of your child, family member or friend?: No Do you have trouble with day-to-day activities such as bathing, preparing meals, shopping, managing finances, etc.?: No Are you currently unemployed and looking for a job?: No Are you interested in more education?: No Please select the resources that you would like help with: None Currently or been in a relationship where the following occur: No concerns reported THRIVE Score: 0 AUDIT C Alcohol Use Questionnaire (AUDIT-C) 1. How often do you have a drink containing alcohol?: Never 3. How often do you have six or more drinks on one occasion?: Never Total Score: 0 Score Reviewed/Action Taken: Yes CLARICE-7 AMB Questionnaire CLARICE-7 Date CLARICE - 7 assessed: 07/20/24 Feeling nervous, anxious, or on edge: 0 = Not at all Not being able to stop or control worryin = Not at all Worrying too much about different things: 0 = Not at all Trouble relaxin = Not at all Being so restless that it is hard to sit still: 0 = Not at all Becoming easily annoyed or irritable: 0 = Not at all Feeling afraid as if something awful might happen: 0 = Not at all Total CLARICE-7 score (0-4 normal; 5-9 mild; 10-14 moderate; 15-21 severe): 0 Source: Developed by Drs. Mello Richey, Katina Avalos, Beni Palma and colleagues, with an educational sesar from [employer]. Physical exam (Primary Care) Vital Signs: Oxygen Delivery Method Room Air 07/20/24 10:14 Tobacco/Smoking Status: Tobacco use Status Tobacco use date assessed 07/20/24 07/20/24 10:17 Patient Tobacco Use Status Never used Tobacco 07/20/24 10:17 e-Cigarette/Vaping Use Never Used 07/20/24 10:17 PHQ-9: PHQ-9 Score PHQ-9: Total score 0 07/20/24 10:17 Depression Screening Interpretation: Negative Thrive Assessment: Date of Thrive Assessment Date Thrive assessed 07/20/24 07/20/24 10:17 Currently or been in a relationship where the following occur: No concerns reported Office Procedures Flu Questionnaire Does the patient have a severe egg allergy?: No Immunizations Fluarix Triv [id number] (PF) 45 mcg (15 mcg x 3)/0.5 mL IM syringe Performing Provider: Tom Nava MD [facility] Documented (not given) by: YESSY Robbins on 07/20/24 10:17 Reason Not Given: Received Previously Coding Assessment & Plan Assessment & Plan Orders: Orders Influenza [id number] Immunization Today Z23 - Encounter for immunization
--- NOTE | 2024-07-20 10:21 | A.OFFVIS_ITS ---
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 Accompanied by: Spouse Allergies No Known Allergies Allergy (Mild, Verified 07/20/24 10:40) NOT APPLICABLE Medication List - Last Reconciled 07/20/24 by Tom Nava MD acetaminophen 500 mg PO QID PRN atorvastatin 80 mg PO BEDTIME 90 days donepezil 10 mg PO DAILY ibuprofen 600 mg PO TID PRN irbesartan 150 mg PO DAILY memantine 10 mg PO BID tramadol 50 mg PO BID PRN vit C,L-Gy-hztef-lutein-zeaxan 250-90-40-1 mg (PreserVision AREDS-2) 1 tab PO BID Do you need a note to return to daycare/school/sports/work: No HPI [facility] G0439 HPI Details Patient comes in today for her Annual Medicare Wellness Exam - is accompanied as usual by her She remains confused and is oriented only to place; states that she knows me as her doctor but cannot recall my name Her is her primary caregiver and provides most of the pertinent information regarding patient during her visits Patient appears to have gained a lot of weight over the past year (almost 20 pounds since October 2023) - her states that patient seems to be hungry all the time and is constantly eating or looking for food States that she has been eating a lot of apples daily for the past few months, sometimes as many as 5 apples a day [place] of care was reviewed and updated today Patient has a healthcare proxy in place and on file IPPE/AWV: c/o of Annual Wellness Visit, subsequent visit. Medical / Social History Reviewed Past Medical History Yes . [place] of Care / Care Team list updated Yes . Surgical/Hospitalization History Yes . Current Medications (including OTC and supplements) Yes . Family History Yes . Tobacco Control form Yes . AUDIT-C (Alcohol use) form Yes . Illicit drug use in Social History Yes . Current diagnosis of depression? No Appropriate PHQ2/PHQ9 completed Yes . Data entered by Script Artist and reviewed by provider Home Safety Throw rugs? No Grab bars? No Raised toilet seats? No Working smoke detectors? Yes Working carbon monoxide detectors? Yes Data entered by Script Artist and reviewed by provider Activities of Daily Living (ADLs) Difficulty bathing or showering? No Difficulty dressing? No Difficulty using the toilet? No Difficulty getting in and out of bed? No Difficulty walking? No Receives help from another person with any of the above tasks? No Instrumental Activities of Daily Living (IADLs) Uses the telephone with help Gets to places out of walking distance with help Goes shopping for groceries with help Prepares own meals with help Does own minor home maintenance with help Does own laundry with help Does own housework with help Manages own money with help Currently takes medications? Yes Takes medication with help End-of-Life Planning Discussed advance directive Yes Advance directive on file Discussed wishes expressed in advance directive agreed to following patient's wishes Fall Risk: Fall History Have you had any falls with injury in the past year? No . Have you had two or more falls in the past year? No . Fall Risk Assessment: No falls in the past year . HRA filled out by the patient, reviewed by Provider and scanned. [facility] Medical History Radial styloid fracture Closed fracture of radial styloid Keratotic lesion Obesity (BMI 30-39.9) Dementia Benign essential hypertension Pure hypercholesterolemia Surgical History History of colonoscopy Status post bunionectomy (~07/2007) History of section Family History Father Heart disease Mother Heart disease Diabetes mellitus Sister Diabetes mellitus Rheumatoid arthritis Sister Ovarian cancer Social History Housing: House Alcohol intake: former Patient Tobacco Use Status: Never used Tobacco e-Cigarette/Vaping Use: Never Used Second Hand Smoke Exposure: Yes Advance Directives Date on File: 09/16/23 service: No Current occupational status: retired Cognitive needs: No Hearing needs: No Vision needs: Yes Questionnaire Medicare Wellness Checkup [age] What gender do you identify with?: female During the past 4 weeks, how much have you been bothered by emotional problems such as feeling anxious, depressed, irritable, sad or downhearted, and blue?: slightly During the past 4 weeks, has your physical & emotional health limited your social activities with family, friends, neighbors, or groups?: slightly During the past 4 weeks, how much bodily pain have you generally had?: no pain During the past 4 weeks, was someone available to help you if you needed & wanted help?: yes, as much as I wanted During the past 4 weeks, what was the hardest physical activity you could do for at least 2 minutes?: moderate Can you get to places out of walking distance without help? (For eg., can you travel alone on buses, taxis or drive your car?): No Can you go shopping for groceries or clothes without someone's help?: No Can you prepare your own meals?: No Can you do your housework without help?: No Because of any health problems, do you need the help of another person with your personal care needs such as eating, bathing, dressing or getting around the house?: No Can you handle your own money without help?: No During the past 4 weeks, how would you rate your health in general?: good During the past 4 weeks how have things been going for you?: pretty well Are you having difficulties driving your car?: yes, often Do you always fasten your seat belt when you are in a car?: yes, usually Have you fallen 2 or more times in the past year?: No Are you afraid of falling?: No Are you a smoker?: no During the past 4 weeks, how many drinks of wine, beer, or other alcoholic beverages did you have?: 2-5 drinks per week Do you exercise for about 20 minutes 3 or more times a week?: yes, most of the time Have you been given information to help with the following?: no: Hazards in your house that might hurt you? and no: Keeping track of your medications? How often do you have trouble taking medicines the way you have been told to take them?: I always take medicine as prescribed How confident are you that you can control & manage most of your health problems?: somewhat confident What is your race?: White Mini Mental State Exam (MMSE) Orientation What is the (year) (season) (date) (day) (month)?: month (is oriented only to self and place and unable to participate in the MME ) Score Score: 1 Activity of Daily Living Bathing - sponge bath, tub bath or shower: receives no assistance (gets in/out by self, if usual bathing means Dressing - getting clothes from closets & drawers, including inner/outer garments & fasteners.: gets clothes & gets completely dressed without help Toileting - going to the 'toilet room' for urine/bowel elimination & cleaning self/arranging clothes: goes to toilet room, cleans self, arranges clothes without help Transfer: moves in & out of bed and chair without help (may use support object) Continence: controls urination/bowel movements completely by self Feeding: feeds self without help Total Score: 0 Information obtained from: patient Using telephone: needs assistance Traveling: dependent Shopping: dependent Preparing meals: dependent Housework: dependent Taking medicine: dependent Managing money: dependent PHQ-9 Over the last 2 weeks, how often have you been bothered by any of the following problems? 1. Little interest or pleasure in doing things: more than half the days 2. Feeling down, depressed, or hopeless: not at all 3. Trouble falling or staying asleep, or sleeping too much: not at all 4. Feeling tired or having little energy: not at all 5. Poor appetite or overeating: more than half the days 6. Feeling bad about yourself - or that you are a failure or have let yourself or your family down: not at all 7. Trouble concentrating on things, such as reading the newspaper or watching television: not at all 8. Moving or speaking so slowly that other people could have noticed. Or the opposite - being so fidgety or restless that you have been moving around a lot more than usual: not at all 9. Thoughts that you would be better off or of hurting yourself in some way: not at all Total score: 4 Depression Screening Interpretation: Positive Depression Screening Follow-up: Existing condition, In treatment and Follow-up Visit Requested Depression Screening Done: Yes 07178 - PHQ-9 Billing: Yes Source: Developed by Drs. Mello Richey, Katina Avalos, Beni Palma and colleagues, with an educational sesar from [employer]. PHQ-2/PHQ-9 PHQ-2 Over the last 2 weeks, how often have you been bothered by any of the following problems? 1. Little interest or pleasure in doing things: more than half the days 2. Feeling down, depressed, or hopeless: not at all Total score: 2 If score is 3 or greater, continue 3. Trouble falling or staying asleep, or sleeping too much: not at all 4. Feeling tired or having little energy: not at all 5. Poor appetite or overeating: more than half the days 6. Feeling bad about yourself - or that you are a failure or have let yourself or your family down: not at all 7. Trouble concentrating on things, such as reading the newspaper or watching television: not at all 8. Moving or speaking so slowly that other people could have noticed. Or the opposite - being so fidgety or restless that you have been moving around a lot more than usual: not at all 9. Thoughts that you would be better off or of hurting yourself in some way: not at all Total score: 4 0-4 None-Minimal, 5-9 Mild, 10-14 Moderate, 15-19 Moderately Severe, 20-27 Severe Source: Developed by Drs. Mello Richey, Katina Avalos, Beni Palma and colleagues, with an educational sesar from [employer]. Thrive Questionnaire Date Thrive assessed: 07/20/24 I am a: Patient What is your living situation today?: I have a steady place to live Within the past 12 months, did the food you bought not last and you didn't have the money to get more?: Never true Within the past 12 months, did you worry whether your food would run out before you got money to buy more?: Never true Do you have trouble paying for medicines?: No Do you have trouble getting transportation to medical appointments?: No Do you have trouble paying your heating and electricity bill?: No Do you have trouble taking care of your child, family member or friend?: No Do you have trouble with day-to-day activities such as bathing, preparing meals, shopping, managing finances, etc.?: No Are you currently unemployed and looking for a job?: No Are you interested in more education?: No Please select the resources that you would like help with: None Currently or been in a relationship where the following occur: No concerns reported THRIVE Score: 0 CLARICE-7 AMB Questionnaire CLARICE-7 Date CLARICE - 7 assessed: 07/20/24 Feeling nervous, anxious, or on edge: 0 = Not at all Not being able to stop or control worryin = Not at all Worrying too much about different things: 0 = Not at all Trouble relaxin = Not at all Being so restless that it is hard to sit still: 0 = Not at all Becoming easily annoyed or irritable: 0 = Not at all Feeling afraid as if something awful might happen: 0 = Not at all Total CLARICE-7 score (0-4 normal; 5-9 mild; 10-14 moderate; 15-21 severe): 0 Source: Developed by Drs. Mello Richey, Katina Avalos, Beni Palma and colleagues, with an educational sesar from [employer]. Review of Systems Const Details: Information here is provided primarily by patient's as patient appears confused and unable to provide more detailed info due to her dementia Denies difficulty sleeping, Denies fatigue, Denies fever(s), Denies headache(s), Reports increased appetite and Reports weight gain ENT Denies dysphagia, Denies dizziness, Denies otalgia, Denies headache(s), Denies neck pain, Denies odynophagia and Denies sore throat Card Denies chest pain, Denies palpitations and Denies dyspnea Resp Denies chest congestion, Denies cough and Denies dyspnea GI Denies abdominal pain, Denies constipation, Denies dysphagia, Denies diarrhea, Denies nausea, Denies odynophagia and Denies vomiting Denies difficulty voiding, Denies nocturia and Denies dysuria Musc Denies neck pain and Denies tingling Skin/Breast Denies rash Neuro Denies behavioral changes, Reports confusion, Denies dizziness, Denies headache(s), Reports memory loss (per ), Denies tingling and Denies paresthesias Psych Denies behavioral changes, Reports confusion and Reports memory loss (per ) Endo Denies fatigue and Denies palpitations Physical Exam Vital Signs: Last Vital Signs Pulse 85 07/20/24 10:14 BP 124/76 07/20/24 10:14 Pulse Ox 94 07/20/24 10:14 Oxygen Delivery Method Room Air 07/20/24 10:14 BMI result Body Mass Index 37.7 IPPE/AWV: Balance Romberg Yes . Tandem walk Yes . Walk and Turn Yes . Rise from sit to stand Yes . Vision Corrective lens No Vision screen pass Hearing Whisper test pass . Urinary incont. no. EKG Not clinically necessary. Const General: confusion Orientation/consciousness: oriented to person (only to herself and her ), oriented to place and confusion Neuro General: oriented to person (only to herself and her ), oriented to place, moves all extremities, no focal motor deficits and confusion Gait exam (Neuro): Normal gait present Romberg Test: Negative Extrem General: Yes no clubbing, cyanosis or edema Psych Speech and movement: Normal speech and movement present Attitude: cooperative Office Procedures Flu Questionnaire Does the patient have a severe egg allergy?: No Immunizations Fluarix Triv [id number] (PF) 45 mcg (15 mcg x 3)/0.5 mL IM syringe Performing Provider: Tom Nava MD [facility] Documented (not given) by: YESSY Robbins on 07/20/24 10:17 Reason Not Given: Received Previously Assessment & Plan Assessment & Plan (1) Medicare annual wellness visit, subsequent: Code(s): Z00.00 - Encounter for general adult medical examination without abnormal findings Plan: HRA form discussed and completed with patient's ; form will be scanned into patient's chart YAN updated today Her colonoscopy was last done with Dr. Hercules on 06/27/[address] Hercules, no further colonoscopies are needed in her case She is up-to-date with her annual mammogram - done in November 2023 She no longer her to keep up with her gynecology and pap smear based on her age She will need her BMD updated - ordered today (2) Dementia: Code(s): F03.90 - Unspecified dementia, unspecified severity, without behavioral disturbance, psychotic disturbance, mood disturbance, and anxiety Qualifiers: Dementia type: unspecified type Dementia behavioral disturbance: without behavioral disturbance Qualified Code(s): F03.90 - Unspecified dementia without behavioral disturbance Plan: Her states that patient's mental status and level of confusion have mostly been the same and have not changed much over the past couple of years Continue Donepezil 10 mg QD and Memantine 10 mg BID Follow up with neurology at [facility] (Dr. Sanchez) as scheduled (3) Pure hypercholesterolemia: Code(s): E78.00 - Pure hypercholesterolemia, unspecified Plan: Reinforced low cholesterol diet Continue Atorvastatin 80 mg QD (4) Benign essential hypertension: Code(s): I10 - Essential (primary) hypertension Plan: Reinforced low sodium diet - goal is systolic BP of at least 140 to 150 mm or less Continue Irbesartan 150 mg QD (5) Elevated LFTs: Code(s): R79.89 - Other specified abnormal findings of blood chemistry Plan: This is most likely due to her recent increased weight gain Will recheck her LFTs as scheduled in 2 months for follow up (6) Obesity (BMI 30-39.9): Code(s): E66.9 - Obesity, unspecified Plan: Reinforced diet; exercise and weight loss are not really realistic given patient's age and dementia but patient's is cautioned that patient has gained over a lot of weight (almost 20 pounds) over the past year Plan Follow up as scheduled in September 2024 Orders: Orders XR DEXA axial skeleton Today Z78.0 - Asymptomatic menopausal state Influenza [id number] Immunization Today Z23 - Encounter for immunization Quality Reporting (2020) Depression/Bipolar (159/160/161/177) PHQ-9: Total score: 4 Coding Level of Care Code Medicare Subsequent (G0439) Est Pt Level 3 (84462) Diagnoses Medicare annual wellness visit, subsequent Z00.00 Dementia without behavioral disturbance, unspecified dementia type F03.90 Dementia type: unspecified type Dementia behavioral disturbance: without behavioral disturbance Pure hypercholesterolemia E78.00 Benign essential hypertension I10 Elevated LFTs R79.89 Obesity (BMI 30-39.9) E66.9
== END 2024-07-20 10:50 | disposition home or self-care (01) ==
PROVIDERS: PCP Internal Medicine; Visit Provider Internal Medicine
DX: Z00.00 Encounter for general adult medical examination without abnormal findings (principal); F03.90 Unspecified dementia, unspecified severity, without behavioral disturbance, psychotic disturbance, mood disturbance, and anxiety; E66.812 Obesity, class 2; Z68.37 Body mass index [BMI] 37.0-37.9, adult; E78.00 Pure hypercholesterolemia, unspecified; I10 Essential (primary) hypertension

== ENCOUNTER → 2024-07-20 10:12 | Outpatient (BNVA) | payer MEDICARE, SELFPAY | PROVIDERS: PCP Internal Medicine; Visit Provider Internal Medicine | DX: Z00.00 Encounter for general adult medical examination without abnormal findings (principal); F03.90 Unspecified dementia, unspecified severity, without behavioral disturbance, psychotic disturbance, mood disturbance, and anxiety; E78.00 Pure hypercholesterolemia, unspecified; I10 Essential (primary) hypertension; R79.89 Other specified abnormal findings of blood chemistry; E66.9 Obesity, unspecified; Z68.37 Body mass index [BMI] 37.0-37.9, adult; Z71.3 Dietary counseling and surveillance | CPT/HCPCS: 90471; 96127; 99212 ==

== ENCOUNTER 2024-08-18 13:33 | Outpatient (REF) | payer MEDICARE, SELFPAY ==
--- NOTE | ~2024-08-18 | MM_ITS ---
EXAMINATION: BONE DENSITOMETRY CLINICAL INDICATION: Asymptomatic menopausal state. COMPARISON: Previous BD dated 06/26/2021 and baseline BD dated 07/20/2007. TECHNIQUE: Using a gauzz DXA System (software version: 13.1) manufactured by [employer], dual-energy x-ray absorptiometry was performed of the lumbar spine and left hip. The images are of good technical quality. Summary results are attached. FINDINGS: LEFT FEMUR, NECK: Current: BMD 0.636 g/cm2, Z-score -1.2, T-score -2.9, osteoporosis. Prior: BMD 0.725 g/cm2. Baseline: BMD 0.818 g/cm2. LEFT FEMUR, TOTAL: Current: BMD 0.736 g/cm2, Z-score -0.6, T-score -2.2, osteopenia, 2.6% decrease from previous, 18.0% decrease from baseline (<5% change is not significant). Prior: BMD 0.756 g/cm2. Baseline: BMD 0.898 g/cm2. AP SPINE L1-L2 (excluding L3 and L4): The data of L1-L4 has been changed to exclude the L3 and L4 vertebral bodies, because at these levels may cause overestimation of lumbar spine density. Current: BMD 0.950 g/cm2, Z-score -0.5, T-score -1.8, osteopenia, 2.2% decrease from previous, 9.1% decrease from baseline (<5% change is not significant). Prior: BMD 0.971 g/cm2. Baseline: BMD 1.045 g/cm2. IDENTIFIED RISK FACTORS: Menopause. HISTORY OF FRACTURE: None listed. MEDICATIONS: Vitamin D. MM/XR DEXA axial skeleton IMPRESSION: 1. DIAGNOSIS: Osteoporosis based on the lowest T-score value of -2.9 in the femoral neck applying World Health Organization criteria. 2. 10-YEAR FRACTURE RISK PREDICTION, FRAX: According to the guidelines, FRAX calculation should only be performed on patients in the osteopenia bone density category. Therefore, FRAX was not performed on this patient. 3. Treatment Recommendations: NOF guidelines recommend consideration for treatment in postmenopausal women and men age 50 and older presenting with the following: -A hip or vertebral (clinical or morphometric) fracture. -T-score less than or equal to -2.5 at the femoral neck or spine after appropriate evaluation to exclude secondary causes. -Low bone mass at the hip or spine and a 10-year fracture probability by FRAX of greater than or equal to 3% for hip fracture or greater than or equal to 20% for major osteoporotic fracture based on the [place] adapted WHO algorithm. 4. Other Recommendations: All treatment decisions require clinical judgment and consideration of individual patient factors, including patient preferences, comorbidities, previous drug use, risk factors not captured in the FRAX model (e.g. frailty, falls, vitamin D deficiency, increased bone turnover, interval significant decline in bone density) and possible under or overestimation of fracture risk by FRAX. Additional medical evaluation for secondary cause of low bone mineral density may be appropriate. 5. Levoscoliosis. FUTURE SCAN RECOMMENDATION: People with diagnosed cases of osteoporosis or at high risk for fracture should have regular bone mineral density tests. For patients eligible for Medicare, routine testing is allowed once every 2 years. The testing frequency can be increased to one year for patients who have rapidly progressing disease, those who are receiving or discontinuing medical therapy to restore bone mass, or have additional risk factors. Electronically signed by: Janneth Schafer MD 08/19/2024 09:21 AM KALLIE GAMEZ
== END 2024-08-18 13:34 | disposition home or self-care (01) ==
LOC: HO.MAMMO 13:33
PROVIDERS: PCP Internal Medicine; Visit Provider Internal Medicine
DX: Z78.0 Asymptomatic menopausal state (principal)
CPT/HCPCS: 77080

== ENCOUNTER 2024-09-17 08:06 | Outpatient (REF) | payer MEDICARE, SELFPAY ==
[2024-09-17 08:28] LABS: MANUAL DIFF FLAG NO
[2024-09-17 09:06] LABS: Basophils Absolute Auto 0.1 X10*3/uL (0.0-0.2); Basophils Percent Auto 1.1 % (0-2); Eosinophils Absolute Auto 0.3 X10*3/uL (0.0-0.4); Eosinophils Percent Auto 5.1 % (0-4); Hematocrit 40.5 % (37.0-47.0); Hemoglobin 14.1 g/dl (12.0-16.0); Imm Gran Abs Auto 0.01 X10*3/uL (0.00-0.03); Imm Gran Pct Auto 0.2 % (0.0-0.4); Lymphocytes Absolute Auto 1.8 X10*3/uL (1.2-4.9); Lymphocytes Percent Auto 31.1 % (20-40); Mean Corpuscular HGB Conc 34.8 g/dl (31.0-35.0); Mean Platelet Volume 10.6 fL (9.4-12.3); Monocytes Absolute Auto 0.7 X10*3/uL (0.1-1.2); Monocytes Percent Auto 12.2 % (2-11); Neutrophils Absolute Auto 2.9 x10*3/uL (2.0-8.3); Neutrophils Percent Auto 50.3 % (45-73); Platelet Count 208 X10*3/uL (160-400); Red Cell Distribution Width 13.1 % (11.0-16.0); White Blood Count 5.7 X10*3/uL (4.8-10.8)
[2024-09-17 09:12] LABS: Estimated Average Glucose 114 mg/dL; Hemoglobin A1C 130.3034 umol/L; Hemoglobin A1c % 5.6 % (<6.0)
[2024-09-17 09:32] LABS: Alanine Aminotransferase 48 U/L (0-31); Albumin Level 3.7 g/dL (3.5-5.0); Alkaline Phosphatase 123 U/L (39-117); Anion Gap 14 (12-20); Aspartate Amino Transferase 46 U/L (5-31); Bilirubin Total 0.6 mg/dL (0.0-1.0); Blood Urea Nitrogen 18 mg/dL (9-16); Calcium 9.5 mg/dL (8.4-10.2); Carbon Dioxide 25 mmol/L (22-29); Chloride 106 mmol/L (96-108); Cholesterol 161 mg/dL (<200); Estimated Glomerular Filt Rate 60; Glucose Fasting 107 mg/dL (60-99); HDL Cholesterol 68 mg/dL (>40); LDL Cholesterol Calculated 79 mg/dL (<100); Potassium 3.8 mmol/L (3.3-5.1); Sodium 141 mmol/L (135-145); Triglycerides 74 mg/dL (<150)
[2024-09-17 09:48] LABS: Appearance Urine Clear; Color Urine Straw; Glucose Urine UA Negative (Negative); Leukocyte Esterase Urine Negative (Negative); Nitrite Urine Negative (Negative); Specific Gravity - Urine <= 1.005 (1.005-1.025); Urine Blood Negative (Negative); Urine Ketones Negative (Negative); Urine Protein Negative (Neg-Trace)
[2024-09-17 09:51] LABS: TSH reflex Free T4 2.58 uIU/mL (0.32-4.0); Vitamin D 25-OH Total 85.6 ng/mL (>30)
[2024-09-17 09:59] LABS: Folate 11.6 ng/mL (> or = 4.0); Vitamin B12 888 pg/mL (200-900)
== END 2024-09-17 08:07 | disposition home or self-care (01) ==
LOC: HO.LAB 08:06
PROVIDERS: PCP Internal Medicine; Visit Provider Internal Medicine
DX: R30.0 Dysuria (principal); R73.01 Impaired fasting glucose; E78.00 Pure hypercholesterolemia, unspecified; E55.9 Vitamin D deficiency, unspecified; R79.89 Other specified abnormal findings of blood chemistry; E53.8 Deficiency of other specified B group vitamins; D64.9 Anemia, unspecified
CPT/HCPCS: 36415; 80053; 80061; 81003; 82306; 82607; 82746; 83036; 84443; 85025

== ENCOUNTER 2024-09-24 12:20 | Outpatient (AMB) | payer MEDICARE, SELFPAY ==
[2024-09-24 12:31] VITALS: BP 116/78; PULSE 86; O2SAT 93; BMI 38.1
--- NOTE | 2024-09-24 12:31 | MHC.PC.OV ---
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 Accompanied by: Self / Same As Patient Allergies No Known Allergies Allergy (Mild, Verified 09/24/24 12:51) NOT APPLICABLE Medication List - Last Reconciled 09/24/24 by Tom Nava MD acetaminophen 500 mg PO QID PRN atorvastatin 80 mg PO BEDTIME 90 days donepezil 10 mg PO DAILY ibuprofen 600 mg PO TID PRN irbesartan 150 mg PO DAILY memantine 10 mg PO BID tramadol 50 mg PO BID PRN vit C,P-Vn-teeae-lutein-zeaxan 250-90-40-1 mg (PreserVision AREDS-2) 1 tab PO BID Tobacco use date assessed: 09/24/24 Fall risk assessment: No Falls in past year Last assessed Fall Risk: 09/24/24 Dental Screening Dental Screen Date: 09/24/24 Did you have a dental visit in the last 12 months?: Yes Did you have a dental problem in the last 6 months where you did not have access to dental care?: No Was dental information given to patient?: Patient has dentist HPI dementia, hyperlipidemia, HTN HPI Details Patient comes in today for her follow up visit - is accompanied as usual by her Patient remains confused and is oriented only to place; states that she knows me as her doctor but cannot recall my name Her is her primary caregiver and HCP and provides most of the pertinent information regarding patient during her office visits Patient appears to have gained some more weight since her last visit - her states that patient seems to be hungry all the time and is constantly eating or looking for food States that she has been eating a lot of apples daily for the past year, sometimes as many as 5 apples a day Patient denies any headaches or dizziness Denies any chest pains, no SOB No nausea/vomiting, no abdominal pain No change in bowel habits noted Her states that she sleeps well at night She had her follow up labs done last week and has already gotten her flu shot at the end of June 2024 [facility] Medical History Radial styloid fracture Closed fracture of radial styloid Keratotic lesion Obesity (BMI 30-39.9) Dementia Benign essential hypertension Pure hypercholesterolemia Surgical History History of colonoscopy Status post bunionectomy (~07/2007) History of section Family History Father Heart disease Mother Heart disease Diabetes mellitus Sister Diabetes mellitus Rheumatoid arthritis Sister Ovarian cancer Social History Housing: House Alcohol intake: former Patient Tobacco Use Status: Never used Tobacco e-Cigarette/Vaping Use: Never Used Second Hand Smoke Exposure: Yes Advance Directives Date on File: 09/16/23 service: No Current occupational status: retired Cognitive needs: No Hearing needs: No Vision needs: Yes Questionnaire PHQ-9 Over the last 2 weeks, how often have you been bothered by any of the following problems? 1. Little interest or pleasure in doing things: more than half the days 2. Feeling down, depressed, or hopeless: not at all 3. Trouble falling or staying asleep, or sleeping too much: not at all 4. Feeling tired or having little energy: not at all 5. Poor appetite or overeating: more than half the days 6. Feeling bad about yourself - or that you are a failure or have let yourself or your family down: not at all 7. Trouble concentrating on things, such as reading the newspaper or watching television: not at all 8. Moving or speaking so slowly that other people could have noticed. Or the opposite - being so fidgety or restless that you have been moving around a lot more than usual: not at all 9. Thoughts that you would be better off or of hurting yourself in some way: not at all Total score: 4 Depression Screening Interpretation: Positive Depression Screening Follow-up: Existing condition, In treatment and Follow-up Visit Requested Depression Screening Done: Yes 27449 - PHQ-9 Billing: Yes Source: Developed by Drs. Mello Richey, Katina Avalos, Beni Palma and colleagues, with an educational sesar from [employer]. Thrive Questionnaire Date Thrive assessed: 09/24/24 I am a: Patient What is your living situation today?: I have a steady place to live Within the past 12 months, did the food you bought not last and you didn't have the money to get more?: Never true Within the past 12 months, did you worry whether your food would run out before you got money to buy more?: Never true Do you have trouble paying for medicines?: No Do you have trouble getting transportation to medical appointments?: No Do you have trouble paying your heating and electricity bill?: No Do you have trouble taking care of your child, family member or friend?: No Do you have trouble with day-to-day activities such as bathing, preparing meals, shopping, managing finances, etc.?: No Are you currently unemployed and looking for a job?: No Are you interested in more education?: No Please select the resources that you would like help with: None Currently or been in a relationship where the following occur: No concerns reported THRIVE Score: 0 AUDIT C Alcohol Use Questionnaire (AUDIT-C) 1. How often do you have a drink containing alcohol?: Never 3. How often do you have six or more drinks on one occasion?: Never Total Score: 0 Score Reviewed/Action Taken: Yes CLARICE-7 AMB Questionnaire CLARICE-7 Date CLARICE - 7 assessed: 09/24/24 Feeling nervous, anxious, or on edge: 0 = Not at all Not being able to stop or control worryin = Not at all Worrying too much about different things: 0 = Not at all Trouble relaxin = Not at all Being so restless that it is hard to sit still: 0 = Not at all Becoming easily annoyed or irritable: 0 = Not at all Feeling afraid as if something awful might happen: 0 = Not at all Total CLARICE-7 score (0-4 normal; 5-9 mild; 10-14 moderate; 15-21 severe): 0 Source: Developed by Drs. Mello Richey, Beni Alvarez and colleagues, with an educational sesar from [employer]. Review of Systems Const Details: Information here is provided primarily by patient's as patient appears confused and unable to provide more detailed info due to her dementia Denies difficulty sleeping, Denies fatigue, Denies fever(s), Denies headache(s), Reports increased appetite and Reports weight gain ENT Denies dysphagia, Denies dizziness, Denies otalgia, Denies headache(s), Denies neck pain, Denies odynophagia and Denies sore throat Card Denies chest pain, Denies palpitations and Denies dyspnea Resp Denies chest congestion, Denies cough and Denies dyspnea GI Denies abdominal pain, Denies constipation, Denies dysphagia, Denies diarrhea, Denies nausea, Denies odynophagia and Denies vomiting Denies difficulty voiding, Denies nocturia and Denies dysuria Musc Denies neck pain and Denies tingling Skin/Breast Denies rash Neuro Denies behavioral changes, Reports confusion, Denies dizziness, Denies headache(s), Reports memory loss (per ), Denies tingling and Denies paresthesias Psych Denies behavioral changes, Reports confusion and Reports memory loss (per ) Endo Denies fatigue and Denies palpitations Physical exam (Primary Care) Vital Signs: Last Vital Signs Pulse 86 09/24/24 12:31 BP 116/78 09/24/24 12:31 Pulse Ox 93 09/24/24 12:31 Oxygen Delivery Method Room Air 09/24/24 12:31 BMI result Body Mass Index 38.1 Tobacco/Smoking Status: Tobacco use Status Tobacco use date assessed 09/24/24 09/24/24 12:37 Patient Tobacco Use Status Never used Tobacco 09/24/24 12:37 e-Cigarette/Vaping Use Never Used 09/24/24 12:37 PHQ-9: PHQ-9 Score PHQ-9: Total score 4 09/24/24 12:37 Depression Screening Interpretation: Positive Depression Screening Follow-up: Existing condition, In treatment and Follow-up Visit Requested Thrive Assessment: Date of Thrive Assessment Date Thrive assessed 09/24/24 09/24/24 12:37 Currently or been in a relationship where the following occur: No concerns reported Const General: confusion Orientation/consciousness: confusion HENMT Ears: TM's normal bilaterally and EAC's normal Throat: Yes posterior oropharynx normal and Yes tonsils normal (no TP congestion noted) Neck Neck: Yes supple and No lymphadenopathy Thyroid: Thyroid normal Resp Auscultation: clear to auscultation bilaterally, no rales and no wheezes Cardio Rate: regular rate Rhythm: regular rhythm Heart sounds: no murmurs GI Palpation (GI): Soft to palpation and nontender Auscultation: normal bowel sounds General: Yes no CVA tenderness Back/Spine/Pelvis Back: no CVA tenderness Thoracic/Lumbar Spine: No lumbar spinal tenderness Skin Rashes: no rashes Neuro General: confusion Extrem General: Yes no clubbing, cyanosis or edema Results Reviewed Results Reviewed: Laboratory Tests 03/17/24 09/17/24 09/17/24 08:04 08:18 08:27 WBC 5.7 Hgb 14.1 Hct 40.5 Plt Count 208 Sodium 141 Potassium 3.8 Creatinine 0.91 Estimated GFR 60 Fasting Glucose 107 H Hemoglobin A1c % 5.6 Calcium 9.5 AST 46 H ALT 48 H Alkaline Phosphatase 123 H Triglycerides 74 Cholesterol 161 LDL Cholesterol, Calc 79 HDL Cholesterol 68 Vitamin B12 888 25-OH Vitamin D Total 85.6 TSH 2.58 Ur Specific [place] <= 1.005 Urine Protein Negative Urine Glucose (UA) Negative Urine Blood Negative Urine Nitrite Negative Ur Leukocyte Esterase Negative ALANA Screen NEGATIVE Coding Level of Care Code Est Pt Level 4 (19884) Diagnoses Pure hypercholesterolemia E78.00 Benign essential hypertension I10 Elevated LFTs R79.89 Impaired fasting glucose R73.01 Dementia without behavioral disturbance, unspecified dementia type F03.90 Dementia type: unspecified type Dementia behavioral disturbance: without behavioral disturbance Elevated vitamin B12 level R74.8 Obesity (BMI 30-39.9) E66.9 Additional Codes PHQ-9 - 64952 - PHQ-9 Billing: Yes ([id number]) Assessment & Plan Assessment & Plan (1) Pure hypercholesterolemia: Code(s): E78.00 - Pure hypercholesterolemia, unspecified Category: Medical Plan: Results of her labs done last week reviewed and discussed with patient and her - patient's cholesterol numbers are again well-controlled on her recent labs Reinforced low cholesterol diet Continue Atorvastatin 80 mg QD Will recheck her labs and fasting lipids in 6 months for follow up (2) Benign essential hypertension: Code(s): I10 - Essential (primary) hypertension Category: Medical Plan: Reinforced low sodium diet - goal is systolic BP of at least 140 to 150 mm or less Continue Irbesartan 150 mg QD (3) Elevated LFTs: Code(s): R79.89 - Other specified abnormal findings of blood chemistry Category: Medical Plan: Patient's is cautioned that patient's LFTs remain elevated on her recent labs and are slightly higher than previous, most likely due to her weight gain Have advised them that this should improve if patient is able to lose some weight although this would be challenging due to her cognitive deficit Will recheck her LFTs in 6 months for follow up (4) Impaired fasting glucose: Code(s): R73.01 - Impaired fasting glucose Category: Medical Plan: Patient's FBS is again slightly elevated on her recent labs at 107 mg/dl but her HgbA1c is normal at 5.6% Reinforced diet; patient's is again encouraged to take patient out for walks often, weather permitting (5) Dementia: Code(s): F03.90 - Unspecified dementia, unspecified severity, without behavioral disturbance, psychotic disturbance, mood disturbance, and anxiety Category: Medical Qualifiers: Dementia type: unspecified type Dementia behavioral disturbance: without behavioral disturbance Qualified Code(s): F03.90 - Unspecified dementia without behavioral disturbance Plan: Her states that patient's mental status and level of confusion have mostly been the same and have not changed much over the past couple of years Continue Donepezil 10 mg QD and Memantine 10 mg BID Follow up with neurology at [facility] [place] (Dr. Sanchez) as scheduled (6) Elevated vitamin B12 level: Code(s): R74.8 - Abnormal levels of other serum enzymes Category: Medical Plan: Have advised them that patient's B12 level is now back to normal Can continue Vitamin B12 supplements but only once a week and not daily Will continue to monitor her B12 level regularly (7) Obesity (BMI 30-39.9): Code(s): E66.9 - Obesity, unspecified Category: Medical Plan: Reinforced diet; exercise and weight loss are not really realistic given patient's age and dementia but patient's is cautioned that patient has again gained over a lot of weight since her last visit 6 months ago Plan Follow up in 6 months Orders: Orders Lipid Panel 6 Months E78.00 - Pure hypercholesterolemia, unspecified Hemoglobin A1c 6 Months R73.9 - Hyperglycemia, unspecified Vitamin D 25-OH Total 6 Months E55.9 - Vitamin D deficiency, unspecified Complete Blood Count Auto Diff 6 Months D64.9 - Anemia, unspecified Comprehensive [place]. Panel Fast 6 Months E78.00 - Pure hypercholesterolemia, unspecified TSH reflex Free T4 6 Months E78.00 - Pure hypercholesterolemia, unspecified UA CC w/rflx Micro + Cult 6 Months R30.0 - Dysuria Vitamin B12 and Folate 6 Months E53.8 - Deficiency of other specified B group vitamins
== END 2024-09-24 13:00 | disposition home or self-care (01) ==
PROVIDERS: PCP Internal Medicine; Visit Provider Internal Medicine
DX: E78.00 Pure hypercholesterolemia, unspecified (principal); F03.90 Unspecified dementia, unspecified severity, without behavioral disturbance, psychotic disturbance, mood disturbance, and anxiety; E66.9 Obesity, unspecified; Z68.38 Body mass index [BMI] 38.0-38.9, adult; I10 Essential (primary) hypertension; R73.01 Impaired fasting glucose; R74.8 Abnormal levels of other serum enzymes

== ENCOUNTER → 2024-09-24 12:20 | Outpatient (BNVA) | payer MEDICARE, SELFPAY | PROVIDERS: PCP Internal Medicine; Visit Provider Internal Medicine | DX: E78.00 Pure hypercholesterolemia, unspecified (principal); F03.90 Unspecified dementia, unspecified severity, without behavioral disturbance, psychotic disturbance, mood disturbance, and anxiety; E78.5 Hyperlipidemia, unspecified; I10 Essential (primary) hypertension; R79.89 Other specified abnormal findings of blood chemistry; R73.01 Impaired fasting glucose; R74.8 Abnormal levels of other serum enzymes; E66.9 Obesity, unspecified; R73.9 Hyperglycemia, unspecified; E55.9 Vitamin D deficiency, unspecified; D64.9 Anemia, unspecified; R30.0 Dysuria; E53.8 Deficiency of other specified B group vitamins; Z68.38 Body mass index [BMI] 38.0-38.9, adult | CPT/HCPCS: 96127; 99212 ==

== ENCOUNTER 2024-11-23 12:01 | Outpatient (REF) | payer MEDICARE, SELFPAY | END 2024-11-23 12:02 | disposition home or self-care (01) | LOC: HO.MAMMO 12:01 | PROVIDERS: PCP Internal Medicine; Visit Provider Internal Medicine | DX: Z12.31 Encounter for screening mammogram for malignant neoplasm of breast (principal) | CPT/HCPCS: 77063; 77067 ==

== ENCOUNTER → 2024-11-23 12:15 | Outpatient (BNV) | payer MEDICARE, SELFPAY | PROVIDERS: PCP Internal Medicine; Visit Provider Internal Medicine | DX: Z12.31 Encounter for screening mammogram for malignant neoplasm of breast (principal) | CPT/HCPCS: 77063; 77067 ==

== ENCOUNTER 2025-01-18 12:53 | Outpatient (AMB) | payer MEDICARE, SELFPAY ==
--- NOTE | 2025-01-18 12:54 | AM.OFFWIN_ITS ---
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 Patient Tobacco Use Status: Never used Tobacco Allergies No Known Allergies Allergy (Mild, Verified 01/18/25 12:57) NOT APPLICABLE Do you need a note to return to daycare/school/sports/work: No HPI HPI Comments History of Present Illness Details History - The patient is a 79-year-old female wi th past med hx of demetia here with her presenting with cough and shortness of breath. - Symptoms duration: over a week. - No history of asthma, COPD, or smoking . - Absent fevers. - Symptoms: persistent cough, shortness of breath. - No sinus pain, ear pain, headaches, or fatigue. - Use of Mucinex provided partial relief . - Nighttime cough present but not signif icantly disrupting sleep. - Unusual respiratory episode for patien t with a previously uneventful respiratory history. Physical Exam General: Cooperative, healthy appearing, comfortable and no acute distress Orientation/consciousness: Patient oriented x3 Limitations: No limitations Head: Normal to inspection Ears: Hearing grossly normal bilaterally, external ears normal and TM's normal bilaterally Nose: Normal external nose present, Normal nares present and No nasal discharge present Face and sinus: Normal facial exam and Yes sinuses nontender Mouth: Normal oral and palatal mucosa present and moist mucous membranes Throat: Yes tonsils normal, Yes uvula midline. Posterior oropharynx erythema Eyes: Appearance normal, both eyes and all related structures Neck: Normal visual inspection Respiratory: insp/exp wheezes with rhonchi, Normal respiratory effort, able to speak in complete sentences, Actively coughing, no respiratory distress, not tachypneic, no tripod positioning and no use of accessory muscles. Cardiovascular: Regular rate and rhythm. Normal S1 and S2 Skin: No rashes or lesions noted Neuro: Patient oriented x3 Extremities: Normal to inspection and Yes no clubbing, cyanosis or edema [facility] Medical History Radial styloid fracture Closed fracture of radial styloid Keratotic lesion Obesity (BMI 30-39.9) Dementia Benign essential hypertension Pure hypercholesterolemia Surgical History History of colonoscopy Status post bunionectomy (~07/2007) History of section Family History Father Heart disease Mother Heart disease Diabetes mellitus Sister Diabetes mellitus Rheumatoid arthritis Sister Ovarian cancer Social History Housing: House Alcohol intake: former Patient Tobacco Use Status: Never used Tobacco e-Cigarette/Vaping Use: Never Used Second Hand Smoke Exposure: Yes Advance Directives Date on File: 09/16/23 service: No Current occupational status: retired Cognitive needs: No Hearing needs: No Vision needs: Yes Review of Systems Const All systems reviewed & are unremarkable except as noted in HPI and below Physical Exam Vital Signs: Last Vital Signs Temp 97.9 F 01/18/25 12:56 Pulse 74 01/18/25 12:56 BP 120/78 01/18/25 12:56 Pulse Ox 92 01/18/25 12:56 Oxygen Delivery Method Room Air 01/18/25 12:56 Office Meds prednisone 20 mg tablet Performing Provider: Patsy Valadez PA-C Performing Location[place] [facility] [place] [facility] Administered by: Patsy Valadez PA-C on 01/18/25 13:17 Dose Route Admin Location Dispensed Lot Number Expiration Date [facility] Manager Of Maintenance 20 mg PO 2 tab [id number] 12/03/25 Assessment & Plan Assessment & Plan (1) Lower respiratory infection (e.g., bronchitis, pneumonia, pneumonitis, pulmonitis): Code(s): J22 - Unspecified acute lower respiratory infection Plan: O2 92% on RA, pt well appearing and PE remarkable for wheezes and rhonchi. Will get CXR, my interpretation of CXR does not show any acute issues/pneumonia. Full viral panel sent. The patient's symptoms of cough and shortness of breath, encompassing wheezing, suggest a possible respiratory infection that warrants exclusion of pneumonia through a chest X-ray. Commencement of prednisone therapy is planned as a targeted intervention for airway inflammation, easing the wheezing and aiding respiratory function. A five-day regimen of prednisone will begin morning after this encounter, with in-office initiation granted today and a 4 day RX sent to pharmacy. A cough suppressant will be prescribed to alleviate nocturnal cough episodes. Continued use of Mucinex is advised alongside ample rest and hydration. Patient was informed and verbally consented to the use of an ambient scribe for clinic note documentation during this visit Orders: Orders Resp Pathogen Panel - [facility] [place] J06.9 - Acute upper respiratory infection, unspecified XR chest 2V Today R05.9 - Cough, unspecified AMB Prednisone Adult Dose Today J22 - Unspecified acute lower respiratory infection Medications: New prednisone 40 mg (2 x 20 mg) PO QAM 8 tabs 0RF benzonatate 200 mg PO BEDTIME PRN 10 caps 0RF cough Coding Level of Care Code Est Pt Level 4 (26607) Diagnoses Lower respiratory infection (e.g., bronchitis, pneumonia, pneumonitis, pulmonitis) J22
[2025-01-18 12:56] VITALS: BP 120/78; PULSE 74; TEMP 36.6; O2SAT 92
== END 2025-01-18 14:27 | disposition home or self-care (01) ==
PROVIDERS: PCP Internal Medicine; Visit Provider Physician Assistant
DX: J22 Unspecified acute lower respiratory infection (principal)

== ENCOUNTER 2025-01-18 12:53 | Outpatient (REF) | payer MEDICARE, SELFPAY ==
--- NOTE | ~2025-01-18 | XR_ITS ---
EXAMINATION: XR CHEST 2 VIEWS HISTORY: R05.9 - Cough, unspecified COMPARISON: There are no prior studies for comparison. FINDINGS: PA and lateral views of the chest are submitted. The lungs are expanded and clear. There is no pleural effusion, pneumothorax, or pulmonary vascular congestion. The heart is normal in size. The aorta is calcified. There is degenerative disc disease of the spine. XR/XR chest 2V IMPRESSION: Clear lungs. Electronically signed by: Mello Butt MD 01/18/2025 01:32 PM EDT
[2025-01-19 11:12] LABS: Adenovirus PCR Not Detected (Not Detect.); Bordetella parapertussis PCR Not Detected (Not Detect.); Bordetella pertussis PCR Not Detected (Not Detect.); Chlamydia pneumoniae PCR Not Detected (Not Detect.); Coronavirus 229E PCR Not Detected (Not Detect.); Coronavirus HKU1 PCR Not Detected (Not Detect.); Coronavirus NL63 PCR Not Detected (Not Detect.); Coronavirus OC43 PCR Not Detected (Not Detect.); Human metapneumovirus PCR Not Detected (Not Detect.); Influenza A PCR Not Detected (Not Detect.); Influenza B PCR Not Detected (Not Detect.); Mycoplasma pneumoniae PCR Not Detected (Not Detect.); Parainfluenza 1 PCR Not Detected (Not Detect.); Parainfluenza 2 PCR Not Detected (Not Detect.); Parainfluenza 3 PCR Detected (Not Detect.); Parainfluenza 4 PCR Not Detected (Not Detect.); RSV PCR Not Detected (Not Detect.); Rhino/Enterovirus PCR Not Detected (Not Detect.)
[2025-01-19 11:23] LABS: Influenza A H1 PCR Not Detected (Not Detect.); Influenza A H1-2009 PCR Not Detected (Not Detect.); Influenza A H3 PCR Not Detected (Not Detect.); SARS-CoV-2 PCR Not Detected (Not Detect.)
== END 2025-01-18 12:54 | disposition home or self-care (01) ==
LOC: HO.HMGCX 12:53
PROVIDERS: PCP Internal Medicine; Visit Provider Physician Assistant
DX: R05.9 Cough, unspecified (principal); J06.9 Acute upper respiratory infection, unspecified
CPT/HCPCS: 71046; 87633; 99212

== ENCOUNTER → 2025-01-18 13:18 | Outpatient (BNV) | payer MEDICARE, SELFPAY | PROVIDERS: PCP Internal Medicine; Visit Provider Radiology Diagnostic Radiology | DX: R05.9 Cough, unspecified (principal); R06.02 Shortness of breath | CPT/HCPCS: 71046 ==

== ENCOUNTER 2025-02-25 15:25 | Outpatient (AMB) | payer MEDICARE, SELFPAY ==
[2025-02-25 15:30] VITALS: BP 132/80; PULSE 91; TEMP 36.3; O2SAT 95; BMI 39.3
--- NOTE | 2025-02-25 15:30 | A.OFFPC_ITS ---
Vital Signs 02/25/25 15:30 Height 5 ft Weight 201 lb BMI 39.3 BP 132/80 Blood Pressure Location Lt brachial Position Sitting Pulse 91 Pulse Source Pulse Oximeter Temp 97.3 F Temp Source Temporal Artery Scan Pulse Oximetry (%) 95 Oxygen Delivery Method Room Air Intake Visit Reasons: discuss dementia and hygiene Allergies No Known Allergies Allergy (Mild, Verified 02/25/25 15:40) NOT APPLICABLE Medication List - Last Reconciled 02/25/25 by Tom Nava MD acetaminophen 500 mg PO QID PRN atorvastatin 80 mg PO BEDTIME 90 days donepezil 10 mg PO DAILY ibuprofen 600 mg PO TID PRN irbesartan 150 mg PO DAILY memantine 10 mg PO BID tramadol 50 mg PO BID PRN vit C,Z-Tt-ijndo-lutein-zeaxan 250-90-40-1 mg (PreserVision AREDS-2) 1 tab PO BID Tobacco use date assessed: 02/25/25 Fall risk assessment: No Falls in past year Last assessed Fall Risk: 02/25/25 Dental Screening Dental Screen Date: 02/25/25 Did you have a dental visit in the last 12 months?: Yes Did you have a dental problem in the last 6 months where you did not have access to dental care?: No Was dental information given to patient?: Patient has dentist HPI discuss dementia and hygiene HPI Details Patient comes in today for her follow-up visit - she is accompanied as usual by her Patient remains confused and is oriented only to place - states that she knows me as her doctor but cannot recall my name and is unable to tell what they, time or year it is at present Her is her primary caregiver and HCP and again provides most of the pertinent information regarding patient during her office visits Patient states that she feels okay She denies any headaches or dizziness Denies any chest pains, no SOB No nausea/vomiting, no abdominal pain No change in bowel habits noted Her states that he was not able to get patient to go for her follow up labs done prior to her appointment today [facility] Medical History Radial styloid fracture Closed fracture of radial styloid Keratotic lesion Obesity (BMI 30-39.9) Dementia Benign essential hypertension Pure hypercholesterolemia Surgical History History of colonoscopy Status post bunionectomy (~07/2007) History of section Family History Father Heart disease Mother Heart disease Diabetes mellitus Sister Diabetes mellitus Rheumatoid arthritis Sister Ovarian cancer Social History Housing: House Alcohol intake: former Patient Tobacco Use Status: Never used Tobacco e-Cigarette/Vaping Use: Never Used Second Hand Smoke Exposure: Yes Advance Directives Date on File: 09/16/23 service: No Current occupational status: retired Cognitive needs: No Hearing needs: No Vision needs: Yes Questionnaire PHQ-9 Over the last 2 weeks, how often have you been bothered by any of the following problems? 1. Little interest or pleasure in doing things: not at all 2. Feeling down, depressed, or hopeless: not at all 3. Trouble falling or staying asleep, or sleeping too much: not at all 4. Feeling tired or having little energy: not at all 5. Poor appetite or overeating: not at all 6. Feeling bad about yourself - or that you are a failure or have let yourself or your family down: not at all 7. Trouble concentrating on things, such as reading the newspaper or watching television: not at all 8. Moving or speaking so slowly that other people could have noticed. Or the opposite - being so fidgety or restless that you have been moving around a lot more than usual: not at all 9. Thoughts that you would be better off or of hurting yourself in some way: not at all Total score: 0 Depression Screening Interpretation: Negative Depression Screening Done: Yes 58924 - PHQ-9 Billing: Yes Source: Developed by Drs. Mello Richey, Katina Avalos, Beni Palma and colleagues, with an educational sesar from [employer]. Thrive Questionnaire Date Thrive assessed: 02/25/25 I am a: Parent/Caregiver What is your living situation today?: I have a steady place to live Within the past 12 months, did the food you bought not last and you didn't have the money to get more?: Never true Within the past 12 months, did you worry whether your food would run out before you got money to buy more?: Never true Do you have trouble paying for medicines?: No Do you have trouble getting transportation to medical appointments?: No Do you have trouble paying your heating and electricity bill?: No Do you have trouble taking care of your child, family member or friend?: No Do you have trouble with day-to-day activities such as bathing, preparing meals, shopping, managing finances, etc.?: I choose not to answer this question Are you currently unemployed and looking for a job?: No Are you interested in more education?: No Please select the resources that you would like help with: None Currently or been in a relationship where the following occur: No concerns reported THRIVE Score: 0 AUDIT C Alcohol Use Questionnaire (AUDIT-C) 1. How often do you have a drink containing alcohol?: Monthly or less 2. How many drinks containing alcohol do you have on a typical day when you are drinking?: 1 or 2 3. How often do you have six or more drinks on one occasion?: Never Total Score: 1 Score Reviewed/Action Taken: Yes CLARICE-7 AMB Questionnaire CLARICE-7 Date CLARICE - 7 assessed: 02/25/25 Feeling nervous, anxious, or on edge: 0 = Not at all Not being able to stop or control worryin = Not at all Worrying too much about different things: 0 = Not at all Trouble relaxin = Not at all Being so restless that it is hard to sit still: 0 = Not at all Becoming easily annoyed or irritable: 0 = Not at all Feeling afraid as if something awful might happen: 0 = Not at all Total CLARICE-7 score (0-4 normal; 5-9 mild; 10-14 moderate; 15-21 severe): 0 Source: Developed by Drs. Mello Richey, Katina Avalos, Beni Palma and colleagues, with an educational sesar from [employer]. CLARICE-7 Assessment Billing CLARICE-7 Assessment Tool: CLARICE-7 Assessment 07344 Review of Systems Const Details: Information here is provided primarily by patient's as patient appears confused and unable to provide more detailed info due to her dementia Denies difficulty sleeping, Denies fatigue, Denies fever(s) and Denies headache(s) ENT Denies dysphagia, Denies dizziness, Denies otalgia, Denies headache(s), Denies neck pain, Denies odynophagia and Denies sore throat Card Denies chest pain, Denies palpitations and Denies dyspnea Resp Denies chest congestion, Denies cough and Denies dyspnea GI Denies abdominal pain, Denies constipation, Denies dysphagia, Denies diarrhea, Denies nausea, Denies odynophagia and Denies vomiting Denies difficulty voiding, Denies nocturia and Denies dysuria Musc Denies back pain, Denies neck pain and Denies tingling Skin/Breast Denies rash Neuro Denies behavioral changes, Reports confusion, Denies dizziness, Denies headache(s), Reports memory loss (per ), Denies tingling and Denies paresthesias Psych Denies behavioral changes, Reports confusion and Reports memory loss (per ) Endo Denies fatigue and Denies palpitations Physical exam (Primary Care) Vital Signs: Last Vital Signs Temp 97.3 F 02/25/25 15:30 Pulse 91 02/25/25 15:30 BP 132/80 02/25/25 15:30 Pulse Ox 95 02/25/25 15:30 Oxygen Delivery Method Room Air 02/25/25 15:30 BMI result Body Mass Index 39.3 Tobacco/Smoking Status: Tobacco use Status Tobacco use date assessed 02/25/25 02/25/25 15:36 Patient Tobacco Use Status Never used Tobacco 02/25/25 15:36 e-Cigarette/Vaping Use Never Used 02/25/25 15:36 PHQ-9: PHQ-9 Score PHQ-9: Total score 0 02/25/25 15:47 Depression Screening Interpretation: Negative Thrive Assessment: Date of Thrive Assessment Date Thrive assessed 02/25/25 02/25/25 15:36 Currently or been in a relationship where the following occur: No concerns reported Const General: no acute distress and confusion Orientation/consciousness: confusion HENMT Ears: TM's normal bilaterally and EAC's normal Throat: Yes posterior oropharynx normal and Yes tonsils normal (no TP congestion noted) Neck Neck: Yes supple and No lymphadenopathy Thyroid: Thyroid normal Resp Auscultation: clear to auscultation bilaterally, no rales and no wheezes Cardio Rate: regular rate Rhythm: regular rhythm Heart sounds: no murmurs GI Palpation (GI): Soft to palpation and nontender Auscultation: normal bowel sounds General: Yes no CVA tenderness Back/Spine/Pelvis Back: no CVA tenderness Thoracic/Lumbar Spine: No lumbar spinal tenderness Skin Rashes: no rashes Neuro General: confusion Extrem General: Yes no clubbing, cyanosis or edema Coding Level of Care Code Est Pt Level 4 (36287) Diagnoses Pure hypercholesterolemia E78.00 Benign essential hypertension I10 Elevated LFTs R79.89 Impaired fasting glucose R73.01 Dementia without behavioral disturbance, unspecified dementia type F03.90 Dementia type: unspecified type Dementia behavioral disturbance: without behavioral disturbance Elevated vitamin B12 level R74.8 Obesity (BMI 30-39.9) E66.9 Additional Codes CLARICE-7 Assessment Billing - CLARICE-7 Assessment Tool: CLARICE-7 Assessment 28628 ([id number]) PHQ-9 - 33744 - PHQ-9 Billing: Yes ([id number]) Assessment & Plan Assessment & Plan (1) Pure hypercholesterolemia: Code(s): E78.00 - Pure hypercholesterolemia, unspecified Category: Medical Plan: Patient was no able to get her follow up labs done prior to her appointment today As her cholesterol levels were well-controlled at her last visit, will have her skip her labs this time Reinforced low cholesterol diet Continue Atorvastatin 80 mg QD Will recheck her labs and fasting lipids in 6 months for follow up - will just have her use her current lab orders (updated) for her next lab draw (2) Benign essential hypertension: Code(s): I10 - Essential (primary) hypertension Category: Medical Plan: Reinforced low sodium diet - goal is systolic BP of at least 140 to 150 mm or less Continue Irbesartan 150 mg QD (3) Elevated LFTs: Code(s): R79.89 - Other specified abnormal findings of blood chemistry Category: Medical Plan: Patient's LFTs remain elevated on her labs done at her last visit This was most likely due to her weight gain at the time and have advised them that this should improve if patient is able to lose some weight although this would be challenging due to her cognitive deficit Will recheck her LFTs in 6 months for follow up (4) Impaired fasting glucose: Code(s): R73.01 - Impaired fasting glucose Category: Medical Plan: Patient's FBS was again slightly elevated on her last labs back in September 2024 at 107 mg/dl but her HgbA1c was normal at 5.6% Reinforced low carb/low calorie diet Patient's is again encouraged to take patient out for walks often, weather permitting (5) Dementia: Code(s): F03.90 - Unspecified dementia, unspecified severity, without behavioral disturbance, psychotic disturbance, mood disturbance, and anxiety Category: Medical Qualifiers: Dementia type: unspecified type Dementia behavioral disturbance: without behavioral disturbance Qualified Code(s): F03.90 - Unspecified dementia without behavioral disturbance Plan: Her states that patient's mental status and level of confusion have mostly been the same and have not changed much over the past couple of years Continue Donepezil 10 mg QD and Memantine 10 mg BID Follow up with neurology at [facility] [place] (Dr. Sanchez) as scheduled (6) Elevated vitamin B12 level: Code(s): R74.8 - Abnormal levels of other serum enzymes Category: Medical Plan: Patient's B12 level was back to normal on her labs back in September 2024 Continue Vitamin B12 supplements once a week Will continue to monitor her B12 level regularly (7) Obesity (BMI 30-39.9): Code(s): E66.9 - Obesity, unspecified Category: Medical Plan: Reinforced diet; exercise and weight loss are not really realistic given patient's age and dementia Plan To return in 6 months for her annual Wellness exam AND follow up visit
== END 2025-02-25 15:48 | disposition home or self-care (01) ==
LOC: HO.HMCH 15:26
PROVIDERS: PCP Internal Medicine; Visit Provider Internal Medicine
DX: E78.00 Pure hypercholesterolemia, unspecified (principal); E66.9 Obesity, unspecified; F03.90 Unspecified dementia, unspecified severity, without behavioral disturbance, psychotic disturbance, mood disturbance, and anxiety; Z68.39 Body mass index [BMI] 39.0-39.9, adult; I10 Essential (primary) hypertension; R79.89 Other specified abnormal findings of blood chemistry; R73.01 Impaired fasting glucose; R74.8 Abnormal levels of other serum enzymes

== ENCOUNTER → 2025-02-25 15:25 | Outpatient (BNVA) | payer MEDICARE, SELFPAY | PROVIDERS: PCP Internal Medicine; Visit Provider Internal Medicine | DX: I10 Essential (primary) hypertension (principal); E78.00 Pure hypercholesterolemia, unspecified; R79.89 Other specified abnormal findings of blood chemistry; R73.01 Impaired fasting glucose; F03.90 Unspecified dementia, unspecified severity, without behavioral disturbance, psychotic disturbance, mood disturbance, and anxiety; R74.8 Abnormal levels of other serum enzymes; E66.9 Obesity, unspecified; Z68.39 Body mass index [BMI] 39.0-39.9, adult; Z79.899 Other long term (current) drug therapy | CPT/HCPCS: 96127; 99212 ==

== ENCOUNTER 2025-04-27 07:56 | Outpatient (REF) | payer MEDICARE, SELFPAY ==
--- OUTSIDE RECORDS SUMMARY | 2025-04-27 08:02 | XMS_ITS | Patient Health Record ---
Author Organization [facility] Address [address] [place] [address] Care Team Providers Care Chief Underwriter Name Role Phone Tashia Ward Primary Care Provider Unavailab Mello Awan Unavailable [phone] Reason For Referral No Information Medications Medication SIG (Take, Route, Fr equency, Duration) Notes Start Date End Date Status Simvastatin 40 MG ONE ORAL DAILY Oral for 90 Active Lisinopril 10 MG TAKE ONE ORAL DAILY Oral for 90 Active Problems Problem Type SNOMED Code ICD Code Onset Dates Problem Status W/U Status Risk Notes Problem [id number] Encounter for screening for malignant neoplasm of colon (Z12.11) Active confirmed Problem Screening for malignant neoplasm of rectum ([id number]) Encounter for screening for malignant neoplasm of rectum (Z12.12) Active confirmed Problem [id number] Preprocedural examination (Z01.818) Active confirmed Plan Of Treatment Future Test Test Name Order Date COLONOSCOPY 04/23/2016 Insurance Providers Payer Name Payer Address Payer Phone Subscriber Number Group Number Insured Name Patient Relationship to Insured Coverage Start Date Coverage End Date [facility] [address] [place] [phone] [id number] CONY JOSHUA Self - patient is the insured Medical (General) History Medical History History ICD Code Screening Colonoscopy 01-09-2006--neg. exc ept for diverticulosis Denies UT,DM,CVA,Lung disease,renal dise ase Hypertension Hyperlipidemia Surgical History Surgery Date(Month/Year) Tubal ligation
[2025-04-27 08:16] LABS: MANUAL DIFF FLAG NO
[2025-04-27 08:25] LABS: Hematocrit 38.8 % (37.0-47.0); Hemoglobin 13.2 g/dl (12.0-16.0); Imm Gran Abs Auto 0.02 X10*3/uL (0.00-0.03); Imm Gran Pct Auto 0.3 % (0.0-0.4); Lymphocytes Absolute Auto 1.7 X10*3/uL (1.2-4.9); Mean Corpuscular HGB Conc 34.0 g/dl (31.0-35.0); Mean Corpuscular Hemoglobin 31.7 pg (27.0-33.0); Mean Corpuscular Volume 93.3 fL (80.0-98.0); NRBC Abs Auto 0.000 X10*3/uL (0.0-0.012); NRBC Pct Auto 0.0 /100WBC (0.0-0.2); Platelet Count 184 X10*3/uL (160-400); Red Blood Count 4.16 X10*6/uL (4.20-5.50); White Blood Count 6.4 X10*3/uL (4.8-10.8)
[2025-04-27 08:41] LABS: Hemoglobin A1C 132.3775 umol/L; Total Hemoglobin (HGBA1C) 3460.5196 umol/L
[2025-04-27 08:56] LABS: Alanine Aminotransferase 46 U/L (0-31); Albumin Level 3.9 g/dL (3.5-5.0); Alkaline Phosphatase 117 U/L (39-117); Anion Gap 12 (12-20); Aspartate Amino Transferase 34 U/L (5-31); Blood Urea Nitrogen 26 mg/dL (9-16); Calcium 9.3 mg/dL (8.4-10.2); Carbon Dioxide 26 mmol/L (22-29); Chloride 105 mmol/L (96-108); Cholesterol 161 mg/dL (<200); Estimated Glomerular Filt Rate 53; HDL Cholesterol 65 mg/dL (>40); Potassium 4.1 mmol/L (3.3-5.1); Sodium 139 mmol/L (135-145); Total Protein 6.8 g/dL (6.5-8.0); Triglycerides 74 mg/dL (<150)
[2025-04-27 09:25] LABS: Folate 10.6 ng/mL (> or = 4.0); Vitamin B12 687 pg/mL (200-900)
[2025-04-27 12:44] LABS: Appearance Urine Clear; Glucose Urine UA Negative (Negative); PH 5.5 (5.0-9.0); Specific Gravity - Urine 1.010 (1.005-1.025); UMIC TRIGGER UACC YES
[2025-04-27 12:52] LABS: UACC Culture Trigger YES
== END 2025-04-27 07:57 | disposition home or self-care (01) ==
LOC: HO.LAB 07:56
PROVIDERS: PCP Internal Medicine; Visit Provider Internal Medicine
DX: I10 Essential (primary) hypertension (principal); E78.00 Pure hypercholesterolemia, unspecified; R73.9 Hyperglycemia, unspecified; E55.9 Vitamin D deficiency, unspecified; E53.8 Deficiency of other specified B group vitamins; D64.9 Anemia, unspecified; R30.0 Dysuria
CPT/HCPCS: 36415; 80053; 80061; 81001; 82306; 82607; 82746; 83036; 84443; 85025; 87086

== ENCOUNTER 2025-05-04 13:27 | Outpatient (AMB) | payer MEDICARE, SELFPAY ==
[2025-05-04 13:30] VITALS: BP 120/60; PULSE 78; RESP 18; TEMP 36.2; O2SAT 93; BMI 38.3
--- NOTE | 2025-05-04 13:30 | MHC.PC.OV ---
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 Accompanied by: daughter and Allergies No Known Allergies Allergy (Mild, Verified 05/05/25 23:49) NOT APPLICABLE Medication List - Last Reconciled 05/05/25 by JT Shelton acetaminophen 500 mg PO QID PRN atorvastatin 80 mg PO BEDTIME 90 days donepezil 10 mg PO DAILY ibuprofen 600 mg PO TID PRN irbesartan 150 mg PO DAILY memantine 10 mg PO BID tramadol 50 mg PO BID PRN vit C,U-Zc-bpnuk-lutein-zeaxan 250-90-40-1 mg (PreserVision AREDS-2) 1 tab PO BID Tobacco use date assessed: 05/04/25 Fall risk assessment: No Falls in past year Dental Screening Dental Screen Date: 05/04/25 Did you have a dental visit in the last 12 months?: Yes Did you have a dental problem in the last 6 months where you did not have access to dental care?: No Was dental information given to patient?: Patient has dentist HPI hyperlipidemia, HTN, dementia HPI Details The patient is a 79-year-old pleasantly confused female coming in for follow up appointment for hyperlipidemia, HTN, dementia, elevated LFTs, impaired fasting glucose. The patient is pleasantly confused. She is accompanied by her daughter and . Labs reviewed with patient and family There is a question of if the patient would benefit from a memory clinic. The patient is being managed by Dr. Sanchez a neurologist, but has not seen a psychoneurologist. She possibly needs a referral to obtain her level of function to see what she would be able to participate in at the memory clinic. She denies chest pain, sob, heart palpitation or dizziness No abdominal pain/change in bowel habits Denies urinary symptoms heart murmur-will sent for an echo, she is asymptomatic [facility] Medical History Radial styloid fracture Closed fracture of radial styloid Keratotic lesion Obesity (BMI 30-39.9) Dementia Benign essential hypertension Pure hypercholesterolemia Surgical History History of colonoscopy Status post bunionectomy (~07/2007) History of section Family History Father Heart disease Mother Heart disease Diabetes mellitus Sister Diabetes mellitus Rheumatoid arthritis Sister Ovarian cancer Social History Housing: House Alcohol intake: former Patient Tobacco Use Status: Never used Tobacco e-Cigarette/Vaping Use: Never Used Second Hand Smoke Exposure: Yes Advance Directives Date on File: 09/16/23 service: No Current occupational status: retired Cognitive needs: No Hearing needs: No Vision needs: Yes Questionnaire PHQ-9 Over the last 2 weeks, how often have you been bothered by any of the following problems? 1. Little interest or pleasure in doing things: not at all 2. Feeling down, depressed, or hopeless: not at all 3. Trouble falling or staying asleep, or sleeping too much: not at all 4. Feeling tired or having little energy: not at all 5. Poor appetite or overeating: not at all 6. Feeling bad about yourself - or that you are a failure or have let yourself or your family down: not at all 7. Trouble concentrating on things, such as reading the newspaper or watching television: not at all 8. Moving or speaking so slowly that other people could have noticed. Or the opposite - being so fidgety or restless that you have been moving around a lot more than usual: not at all 9. Thoughts that you would be better off or of hurting yourself in some way: not at all Total score: 0 Depression Screening Interpretation: Negative Depression Screening Done: Yes Source: Developed by Drs. Mello Richey, Katina Avalos, Beni Palma and colleagues, with an educational sesar from [email or web address]. Thrive Questionnaire Date Thrive assessed: 05/04/25 I am a: Parent/Caregiver What is your living situation today?: I have a place to live, but I am worried about losing it in the future Within the past 12 months, did the food you bought not last and you didn't have the money to get more?: Never true Within the past 12 months, did you worry whether your food would run out before you got money to buy more?: Never true Do you have trouble paying for medicines?: No Do you have trouble getting transportation to medical appointments?: No Do you have trouble paying your heating and electricity bill?: No Do you have trouble taking care of your child, family member or friend?: No Do you have trouble with day-to-day activities such as bathing, preparing meals, shopping, managing finances, etc.?: I choose not to answer this question Are you currently unemployed and looking for a job?: No Are you interested in more education?: No Please select the resources that you would like help with: None Currently or been in a relationship where the following occur: No concerns reported THRIVE Score: 1 AUDIT C Alcohol Use Questionnaire (AUDIT-C) 1. How often do you have a drink containing alcohol?: Monthly or less 2. How many drinks containing alcohol do you have on a typical day when you are drinking?: 1 or 2 3. How often do you have six or more drinks on one occasion?: Never Total Score: 1 Score Reviewed/Action Taken: Yes CLARICE-7 AMB Questionnaire CLARICE-7 Date CLARICE - 7 assessed: 05/04/25 Feeling nervous, anxious, or on edge: 0 = Not at all Not being able to stop or control worryin = Not at all Worrying too much about different things: 0 = Not at all Trouble relaxin = Not at all Being so restless that it is hard to sit still: 0 = Not at all Becoming easily annoyed or irritable: 0 = Not at all Feeling afraid as if something awful might happen: 0 = Not at all Total CLARICE-7 score (0-4 normal; 5-9 mild; 10-14 moderate; 15-21 severe): 0 Source: Developed by Drs. Mello Richey, Katina Avalos, Beni Palma and colleagues, with an educational sesar from [email or web address]. Review of Systems Const Details: Patient is unable to answer questions on her own. Information obtained from her daughter and . Denies body aches, Denies chills, Denies fever(s), Denies headache(s) and Denies poor appetite Eyes Reports no additional complaints ENT Denies dysphagia, Denies dizziness, Denies headache(s) and Denies odynophagia Card Denies chest pain, Denies syncope, Denies edema, Denies lightheadedness and Denies dyspnea Resp Denies cough and Denies dyspnea GI Denies abdominal pain, Denies constipation, Denies dysphagia, Denies diarrhea, Denies nausea, Denies odynophagia and Denies vomiting Denies dysuria Musc Reports no additional complaints and Denies abnormal gait Skin/Breast Reports system reviewed and no additional complaints, except as documented Neuro Denies Abnormal speech present, Denies abnormal gait, Reports confusion, Denies dizziness, Denies syncope, Denies headache(s) and Reports memory loss (History of dementia) Psych Reports anxiety (hx of dementia), Reports confusion and Reports memory loss (History of dementia) Physical exam (Primary Care) Vital Signs: Last Vital Signs Temp 97.1 F 05/04/25 13:30 Pulse 78 05/04/25 13:30 Resp 18 05/04/25 13:30 BP 120/60 05/04/25 13:30 Pulse Ox 93 05/04/25 13:30 Oxygen Delivery Method Room Air 05/04/25 13:30 BMI result Body Mass Index 38.3 Tobacco/Smoking Status: Tobacco use Status Tobacco use date assessed 05/04/25 05/04/25 13:32 Patient Tobacco Use Status Never used Tobacco 05/04/25 13:32 e-Cigarette/Vaping Use Never Used 05/04/25 13:32 PHQ-9: PHQ-9 Score PHQ-9: Total score 0 05/05/25 23:53 Depression Screening Interpretation: Negative Thrive Assessment: Date of Thrive Assessment Date Thrive assessed 05/04/25 05/04/25 13:32 Currently or been in a relationship where the following occur: No concerns reported Const General: healthy appearing, no acute distress, alert, awake and confusion Nutritional Appearance: well nourished Orientation/consciousness: confusion HENMT Ears: TM's normal bilaterally General nose exam: Normal nasal mucous membranes and turbinates present Eyes Conjunctivae: conjunctivae normal Sclerae: sclerae normal Pupils: Equal, round and reactive pupils present Neck Neck: Yes no lymphadenopathy and Yes no JVD Thyroid: Thyroid normal Carotids: no bruits Resp Effort & Inspection: normal respiratory effort and not tachypneic Auscultation: no crackles, no rales, no rhonchi and no wheezes Cardio Rate: regular rate Rhythm: regular rhythm Heart sounds: S1 normal heart sound present, S2 normal heart sound present and Murmur heart sound present systolic GI Palpation (GI): Soft to palpation, nontender, no hepatomegaly and no splenomegaly Auscultation: normal bowel sounds General: Yes no CVA tenderness Back/Spine/Pelvis Back: no CVA tenderness Skin General skin exam: no rashes or lesions noted and dry skin Neuro General: confusion Cranial nerves: Yes Equal, round and reactive pupils present Speech: No Abnormal speech present Gait exam (Neuro): Normal gait present Motor exam (neuro): no tremor noted Extrem Right upper extremity: full ROM Left upper extremity: full ROM Right lower extremity: full ROM; no edema Left lower extremity: full ROM; no edema Psych Mental Status: mental status grossly normal Speech and movement: Normal speech and movement present Affect: normal affect Attitude: cooperative Thought process: Normal thought process present Results Reviewed Results Reviewed: Laboratory Tests 04/27/25 04/27/25 08:14 11:35 WBC 6.4 RBC 4.16 L Hgb 13.2 Hct 38.8 MCV 93.3 MCH 31.7 MCHC 34.0 RDW 12.8 Plt Count 184 MPV 10.5 Sodium 139 Potassium 4.1 Chloride 105 Carbon Dioxide 26 Anion Gap 12 BUN 26 H Creatinine 1.01 Estimated GFR 53 Fasting Glucose 106 H Estimat Average Glucose 117 Hemoglobin A1c % 5.7 Calcium 9.3 Total Bilirubin 0.5 AST 34 H ALT 46 H Alkaline Phosphatase 117 Total Protein 6.8 Albumin 3.9 Triglycerides 74 Cholesterol 161 LDL Cholesterol, Calc 82 HDL Cholesterol 65 Vitamin B12 687 25-OH Vitamin D Total 50.9 Folate 10.6 TSH 2.26 Urine Color Yellow Urine Appearance Clear Urine pH 5.5 Ur Specific [place] 1.010 Urine Protein Negative Urine Glucose (UA) Negative Urine Ketones Negative Urine Blood Negative Urine Nitrite Negative Ur Leukocyte Esterase Moderate (2+) H Urine RBC 0-2 Urine WBC 6-10 H Ur Squamous Epith Cells 0-2 Urine Bacteria None Seen Hyaline Casts 0-2 Coding Level of Care Code Est Pt Level 4 (70168) Diagnoses Benign essential hypertension I10 Heart murmur R01.1 Pure hypercholesterolemia E78.00 Impaired fasting glucose R73.01 Obesity (BMI 30-39.9) E66.9 Elevated vitamin B12 level R74.8 Elevated LFTs R79.89 Dementia without behavioral disturbance, unspecified dementia type F03.90 Dementia type: unspecified type Dementia behavioral disturbance: without behavioral disturbance Time Spent (min) 41 Assessment & Plan Assessment & Plan (1) Benign essential hypertension: Code(s): I10 - Essential (primary) hypertension Category: Medical Plan: The patient blood pressure was 120/60, she is within goal Reinforced Low-salt diet with the patient and family Continue her irbesartan 150 mg daily (2) Heart murmur: Code(s): R01.1 - Cardiac murmur, unspecified Category: Medical Plan: Systolic murmur heard on exam Asymptomatic We will send the patient for an echocardiogram to further evaluate (3) Pure hypercholesterolemia: Code(s): E78.00 - Pure hypercholesterolemia, unspecified Category: Medical Plan: Triglycerides 74, total cholesterol 161, LDL 82, HDL 65 Reinforced low-salt diet and activity as tolerated Continue atorvastatin 80 mg at bedtime (4) Impaired fasting glucose: Code(s): R73.01 - Impaired fasting glucose Category: Medical Plan: The patient fasting glucose is 106 an A1c 5.7 % increase 1 point from 09/16/2013 24 Reinforced a lowest sugar/carbohydrate diet We will continue to monitor (5) Obesity (BMI 30-39.9): Code(s): E66.9 - Obesity, unspecified Category: Medical Plan: Reinforced low calories diet and activity as tolerated (6) Elevated vitamin B12 level: Code(s): R74.8 - Abnormal levels of other serum enzymes Category: Medical Plan: B12 levels are within normal limits (7) Elevated LFTs: Code(s): R79.89 - Other specified abnormal findings of blood chemistry Category: Medical Plan: Liver enzymes continue slightly elevated AST at 34 and ALT 46 Encouraged low-fat diet, continue multivitamin, limit the use of Tylenol We will continue to monitor (8) Dementia: Code(s): F03.90 - Unspecified dementia, unspecified severity, without behavioral disturbance, psychotic disturbance, mood disturbance, and anxiety Category: Medical Qualifiers: Dementia type: unspecified type Dementia behavioral disturbance: without behavioral disturbance Qualified Code(s): F03.90 - Unspecified dementia without behavioral disturbance Plan: The patient is pleasantly confused. She has good family support from and daughter. This is a request to see if there is any services available the support/help her condition or if she will benefit from the memory clinic. The patient has a neurologist Dr. Sanchez, but has not neuropsychologist. We will put in a referral to have the patient be evaluated to see her level function and what services she would need. Orders: Orders Vitamin D 25-OH Total 6 Months E66.9 - Obesity, unspecified, E78.00 - Pure hypercholesterolemia, unspecified, F03.90 - Unspecified dementia, unspecified severity, without behavioral disturbance, psychotic disturbance, mood disturbance, and anxiety, I10 - Essential (primary) hypertension, R73.01 - Impaired fasting glucose, R74.8 - Abnormal levels of other serum enzymes, R79.89 - Other specified abnormal findings of blood chemistry Hemoglobin A1c 6 Months E66.9 - Obesity, unspecified, E78.00 - Pure hypercholesterolemia, unspecified, F03.90 - Unspecified dementia, unspecified severity, without behavioral disturbance, psychotic disturbance, mood disturbance, and anxiety, I10 - Essential (primary) hypertension, R73.01 - Impaired fasting glucose, R74.8 - Abnormal levels of other serum enzymes, R79.89 - Other specified abnormal findings of blood chemistry Complete Blood Count Auto Diff 6 Months E66.9 - Obesity, unspecified, E78.00 - Pure hypercholesterolemia, unspecified, F03.90 - Unspecified dementia, unspecified severity, without behavioral disturbance, psychotic disturbance, mood disturbance, and anxiety, I10 - Essential (primary) hypertension, R73.01 - Impaired fasting glucose, R74.8 - Abnormal levels of other serum enzymes, R79.89 - Other specified abnormal findings of blood chemistry Comprehensive Edgard. Panel Fast 6 Months E66.9 - Obesity, unspecified, E78.00 - Pure hypercholesterolemia, unspecified, F03.90 - Unspecified dementia, unspecified severity, without behavioral disturbance, psychotic disturbance, mood disturbance, and anxiety, I10 - Essential (primary) hypertension, R73.01 - Impaired fasting glucose, R74.8 - Abnormal levels of other serum enzymes, R79.89 - Other specified abnormal findings of blood chemistry Lipid Panel 6 Months E66.9 - Obesity, unspecified, E78.00 - Pure hypercholesterolemia, unspecified, F03.90 - Unspecified dementia, unspecified severity, without behavioral disturbance, psychotic disturbance, mood disturbance, and anxiety, I10 - Essential (primary) hypertension, R73.01 - Impaired fasting glucose, R74.8 - Abnormal levels of other serum enzymes, R79.89 - Other specified abnormal findings of blood chemistry UA CC w/rflx Micro + Cult 6 Months E66.9 - Obesity, unspecified, E78.00 - Pure hypercholesterolemia, unspecified, F03.90 - Unspecified dementia, unspecified severity, without behavioral disturbance, psychotic disturbance, mood disturbance, and anxiety, I10 - Essential (primary) hypertension, R73.01 - Impaired fasting glucose, R74.8 - Abnormal levels of other serum enzymes, R79.89 - Other specified abnormal findings of blood chemistry TSH reflex Free T4 6 Months E66.9 - Obesity, unspecified, E78.00 - Pure hypercholesterolemia, unspecified, F03.90 - Unspecified dementia, unspecified severity, without behavioral disturbance, psychotic disturbance, mood disturbance, and anxiety, I10 - Essential (primary) hypertension, R73.01 - Impaired fasting glucose, R74.8 - Abnormal levels of other serum enzymes, R79.89 - Other specified abnormal findings of blood chemistry B Type Natriuretic Peptide 6 Months I10 - Essential (primary) hypertension, R01.1 - Cardiac murmur, unspecified CA echo transthoracic complete Today R01.1 - Cardiac murmur, unspecified Referrals Neuropsychiatry Referral F03.90 - Unspecified dementia, unspecified severity, without behavioral disturbance, psychotic disturbance, mood disturbance, and anxiety
--- OUTSIDE RECORDS SUMMARY | 2025-05-04 14:00 | XMS_ITS | Patient Health Record ---
Author Organization [facility] Address [address] [place] [address] Care Team Providers Care Volunteer Specialist Name Role Phone Tashia Ward Primary Care Provider Unavailab Mello Awan Unavailable [phone] Reason For Referral No Information Medications Medication SIG (Take, Route, Fr equency, Duration) Notes Start Date End Date Status Simvastatin 40 MG ONE ORAL DAILY Oral for 90 Active Lisinopril 10 MG TAKE ONE ORAL DAILY Oral for 90 Active Problems Problem Type SNOMED Code ICD Code Onset Dates Problem Status W/U Status Risk Notes Problem [id number] Encounter for screening for malignant neoplasm of colon (Z12.11) Active confirmed Problem Screening for malignant neoplasm of rectum (253237069) Encounter for screening for malignant neoplasm of rectum (Z12.12) Active confirmed Problem [id number] Preprocedural examination (Z01.818) Active confirmed Plan Of Treatment Future Test Test Name Order Date COLONOSCOPY 04/23/2016 Insurance Providers Payer Name Payer Address Payer Phone Subscriber Number Group Number Insured Name Patient Relationship to Insured Coverage Start Date Coverage End Date [facility] [address] [place] [phone] [id number] CONYPORTERNA Self - patient is the insured Medical (General) History Medical History History ICD Code Screening Colonoscopy 01-09-2006--neg. exc ept for diverticulosis Denies MD,DM,CVA,Lung disease,renal dise ase Hypertension Hyperlipidemia Surgical History Surgery Date(Month/Year) Tubal ligation
== END 2025-05-04 14:11 | disposition home or self-care (01) ==
LOC: HO.HMCH 13:28
PROVIDERS: PCP Internal Medicine
DX: I10 Essential (primary) hypertension (principal); F03.90 Unspecified dementia, unspecified severity, without behavioral disturbance, psychotic disturbance, mood disturbance, and anxiety; Z68.38 Body mass index [BMI] 38.0-38.9, adult; E66.9 Obesity, unspecified; R01.1 Cardiac murmur, unspecified; E78.00 Pure hypercholesterolemia, unspecified; R73.01 Impaired fasting glucose; R74.8 Abnormal levels of other serum enzymes; R79.89 Other specified abnormal findings of blood chemistry

== ENCOUNTER → 2025-05-04 13:27 | Outpatient (BNVA) | payer MEDICARE, SELFPAY | PROVIDERS: PCP Internal Medicine | DX: I10 Essential (primary) hypertension (principal); E78.5 Hyperlipidemia, unspecified; F03.90 Unspecified dementia, unspecified severity, without behavioral disturbance, psychotic disturbance, mood disturbance, and anxiety; R01.1 Cardiac murmur, unspecified; E78.00 Pure hypercholesterolemia, unspecified; R73.01 Impaired fasting glucose; E66.9 Obesity, unspecified; R74.8 Abnormal levels of other serum enzymes; R79.89 Other specified abnormal findings of blood chemistry; Z68.38 Body mass index [BMI] 38.0-38.9, adult | CPT/HCPCS: 96127; 99212 ==

== ENCOUNTER → 2025-05-23 12:45 | Outpatient (REF) | payer MEDICARE, SELFPAY ==
--- NOTE | 2025-05-23 12:48 | CA_ITS ---
Transthoracic Echocardiogram Patient (Last, First, Middle): Anneliese Donnelly M Gender: Female Date of : 1945 Age: 79 Procedure Date: 05/23/2025 Procedure Type: Transthoracic Echocardiogram Location: OP Height: 152.4 cm Weight: 88.91 kg BSA: 1.85 m2 Heart Rate: bpm BP: 120 / 68 mmHg Early Childhood Education Specialist: HUSEYIN Referring MD: Jeison WATERS Electronic Scale Assembler And Tester: Paul Moses MD Symptoms: R01.1 - Cardiac murmur, unspecified Study Quality: Adequate ECG Rhythm: Sinus Conclusions: - 1. Normal LV ejection fraction of 60-65% with impaired relaxation filling pattern 2. Moderate aortic stenosis 3. Normal RV systolic pressure 4. Mildly dilated ascending aorta 5. No pericardial effusion Findings Procedure Information The quality of the study was technically difficult. The study quality is limited by patients body habitus. Left Ventricle Normal left ventricular size, thickness, and systolic function. The visually estimated ejection fraction is between 60-65%. Spectral Doppler is indicative of an impaired relaxation filling pattern. E/E prime ratio is between 8 and 15 consistent with indeterminate filling pressures. Right Ventricle Normal right ventricular cavity size and systolic function. Atria The left atrium is normal in size. There is no evidence of interatrial shunt. The right atrium is normal in size. Aortic Valve There is moderate calcification of the aortic valve. There is moderate thickening of the aortic valve. There is moderate aortic valve stenosis. The mean gradient is 20 mmHg. There is no aortic valve regurgitation. peak dimensionless index is at 0.28, again consistent with moderate aortic stenosis. Aortic valve area is measured to be in the severe range most likely due to measured LVOT dimensions. Mitral Valve The mitral valve was not well visualized. There is trace mitral valve regurgitation. There is no mitral valve stenosis. Pulmonic Valve The pulmonic valve was not well visualized. Tricuspid Valve Likely normal tricuspid valve structure and function. There is mild tricuspid valve regurgitation. The right ventricular systolic pressure is normal. The right ventricular systolic pressure is 31 mmHg. Normal right atrial pressure. There is no evidence of pulmonary hypertension. Great Vessels The pulmonary artery was not well visualized. There is mild dilatation of the ascending aorta measuring 4.00 cm. Venous The inferior vena cava is normal in size and collapses greater than 50% with inspiration. Pericardium/Pleural There is no evidence of pericardial effusion. Prior Study Comparison No prior study available for comparison. Measurements 2D Linear Measurements IVSd: 1.16 0.6-0.9/0.6-1.0 cm LVIDd: 4.02 3.9-5.3/4.2-5.9 cm LVIDd Index: 2.17 2.4-3.2/2.2-3.1 cm/m2 LVIDs: 2.90 2.0-3.6 cm LVOT Diam: 2.00 3.0+(-)1.3 cm 2D Systolic Function EF 4C: 70.80 >55% EF 2C: 62.50 >55% EF BiP: 65.50 >55% Mitral Valve MV Pk E: 0.95 MV PK A: 1.00 MV Decel Time: 236.00 E/A: 1.00 E'Lateral: 8.70 E'Medial: 4.57 E/E' Med: 20.80 E/E' Lat: 10.90 PHT: 69.00 MVA PHT: 3.19 Decel Woodward: 4.02 Aortic Valve AoV Pk Dewayne: 2.88 AoV Mn Dewayne: 2.16 AoV VTI: 0.67 AoV Pk Grad: 33.00 Aov Mn Grad: 20.00 SANTIAGO Cont.VTI: 0.93 LVOT LVOT Pk Dewayne: 0.88 LVOT Mn Dewayne: 0.59 LVOT VTI: 0.20 LVOT Pk Grad: 3.00 LVOT Mn Grad: 2.00 LVOT Diam: 2.00 LVOT Area: 3.14 Diastolic Function MV Pk E: 0.95 MV Pk A: 1.00 E/A: 1.00 E'Medial: 4.57 E/E' Med: 20.80 E' Laterial: 8.70 E/E' Lat: 10.90 Right Ventricle TAPSE (mm): 18.70 TVS' Dewayne: 8.95 Tricuspid Valve TR Pk Dewayne: 2.63 TR Pk Grad: 28.00 RA Press: 3.00 RVSP: 31.00 Great Vessels Aorta Sinus of Valsalva: 3.10 2.0-3.5 cm Ao Asc: 4.00 2.1-3.4 cm Ao Arch: 2.80 Pulmonary Veins Pulm Vein S/D 1.20 Pulmonary Valve PV Pk Dewayne: 1.26 Peak PV Grad: 6.00 Updated in Other Vendor System with Status of Final Paul Moses MD electronically signed on 05/23/2025 5:05:09 PM with status of Final
--- OUTSIDE RECORDS SUMMARY | 2025-05-23 13:41 | XMS_ITS | Patient Health Record ---
Author Organization [facility] Address [address] [place] [address] Care Team Providers Care Jordan Man Name Role Phone Tashia Ward Primary Care Provider Unavailab Mello Awan Unavailable [phone] Reason For Referral No Information Medications Medication SIG (Take, Route, Fr equency, Duration) Notes Start Date End Date Status Simvastatin 40 MG ONE ORAL DAILY Oral for 90 Active Lisinopril 10 MG TAKE ONE ORAL DAILY Oral for 90 Active Problems Problem Type SNOMED Code ICD Code Onset Dates Problem Status W/U Status Risk Notes Problem [id number] Encounter for screening for malignant neoplasm of colon (Z12.11) Active confirmed Problem Encounter for screening for malignant neoplasm of rectum (Z12.12) Active confirmed Problem [id number] Preprocedural examination (Z01.818) Active confirmed Plan Of Treatment Future Test Test Name Order Date COLONOSCOPY 04/23/2016 Insurance Providers Payer Name Payer Address Payer Phone Subscriber Number Group Number Insured Name Patient Relationship to Insured Coverage Start Date Coverage End Date [facility] [address] [place] [phone] [id number] JOSHUA DONNELLY Self - patient is the insured Medical (General) History Medical History History ICD Code Screening Colonoscopy 01-09-2006--neg. exc ept for diverticulosis Denies [place],DM,CVA,Lung disease,renal dise ase Hypertension Hyperlipidemia Surgical History Surgery Date(Month/Year) Tubal ligation
== END ==
LOC: HO.CARD 12:45
PROVIDERS: PCP Internal Medicine
DX: R01.1 Cardiac murmur, unspecified (principal)
CPT/HCPCS: 93306

== ENCOUNTER → 2025-05-23 12:48 | Outpatient (BNV) | payer MEDICARE, SELFPAY | PROVIDERS: PCP Internal Medicine; Visit Provider Internal Medicine Cardiovascular Disease | DX: I35.0 Nonrheumatic aortic (valve) stenosis (principal); I35.8 Other nonrheumatic aortic valve disorders; I36.1 Nonrheumatic tricuspid (valve) insufficiency; I51.89 Other ill-defined heart diseases | CPT/HCPCS: 93306 ==

== ENCOUNTER 2025-07-13 13:15 | Outpatient (AMB) | payer MEDICARE, SELFPAY ==
--- NOTE | 2025-07-13 13:26 | MHC.OFFVIS ---
Intake Visit Reasons: 6m ad Accompanied by: Spouse Allergies No Known Allergies Allergy (Mild, Verified 07/13/25 13:30) NOT APPLICABLE Medication List - Last Reconciled 07/13/25 by Terri Perez CNP acetaminophen 500 mg PO QID PRN atorvastatin 80 mg PO BEDTIME 90 days donepezil 10 mg PO DAILY ibuprofen 600 mg PO TID PRN irbesartan 150 mg PO DAILY memantine 10 mg PO BID tramadol 50 mg PO BID PRN vit C,E-Ln-vrurv-lutein-zeaxan 250-90-40-1 mg (PreserVision AREDS-2) 1 tab PO BID HPI Comments Details: She was doing okay. Memory was declining some, more forgetful. 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 Not going for as many walks anymore. No falls. Appetite was okay. Sleep was okay. Mood was okay. Does not drive. She was noted by family to have short-term memory loss beginning around 2019. She has 2 sons and a daughter. Normal gait and balance. No hx of head trauma. No bladder control problems. [facility] Medical History Radial styloid fracture Closed fracture of radial styloid Keratotic lesion Obesity (BMI 30-39.9) Dementia Benign essential hypertension Pure hypercholesterolemia Surgical History History of colonoscopy Status post bunionectomy (~07/2007) History of section Family History Father Heart disease Mother Heart disease Diabetes mellitus Sister Diabetes mellitus Rheumatoid arthritis Sister Ovarian cancer Social History Housing: House Alcohol intake: former Patient Tobacco Use Status: Never used Tobacco e-Cigarette/Vaping Use: Never Used Second Hand Smoke Exposure: Yes Advance Directives Date on File: 09/16/23 service: No Current occupational status: retired Cognitive needs: No Hearing needs: No Vision needs: Yes Review of Systems Const Denies chills, Denies daytime sleepiness, Denies difficulty sleeping, Denies fatigue, Denies fever(s), Denies frequent falls, Denies headache(s), Denies increased appetite, Denies poor appetite, Denies snoring, Denies weakness, Denies weight gain and Denies weight loss Eyes Denies loss of vision ENT Denies vertigo, Denies dizziness, Denies headache(s) and Denies neck pain Card Denies chest pain at rest, Denies chest pain with activity, Denies syncope, Denies leg edema, Denies palpitations, Denies dyspnea and Denies dyspnea on exertion Resp Denies cough, Denies dyspnea, Denies dyspnea on exertion and Denies snoring GI Denies abdominal pain, Denies constipation, Denies heartburn, Denies diarrhea and Denies nausea Denies urinary frequency, Denies urinary incontinence and Denies urinary urgency Musc Denies abnormal gait, Denies back pain, Denies myalgias, Denies arthralgias, Denies neck pain, Denies numbness and Denies tingling Neuro Denies abnormal gait, Denies vertigo, Denies dizziness, Denies syncope, Denies frequent falls, Denies headache(s), Denies lack of coordination, Denies loss of vision, Reports memory loss, Denies numbness, Denies Other visual disturbances, Denies restless legs, Denies seizure-like activity, Denies tingling, Denies paresthesias, Denies tremor(s) and Denies weakness Psych Reports anxiety, Denies depression, Denies auditory hallucinations, Reports memory loss and Denies visual hallucinations Endo Denies fatigue and Denies palpitations Physical Exam Const Other: General Appearance:? normal, in no acute distress. Heart:? S1, S2 normal, no murmurs. Lungs:? clear anteriorly and posteriorly. Musculoskeletal:? normal. Extremities:? no edema. Psych:? alert, as below. Neuro Other: Abnormal Neurological Findings:?MMSE <13/30. Mental Status: alert, as below. She is able to tell me that she is here with her . She is unable to tell me her age, birthday, or where she lives. Cranial Nerves: Pupils are equal, round, and reactive to light. External ocular muscles are intact. Visual davidson are full, no ptosis. Face is symmetrical, no facial weakness or droop. Facial sensations are normal. Tongue protrudes in midline. Palate elevates symmetrically. Shoulder shrugging is normal Motor Examination: Normal muscle tone, bulk and strength. No atrophy or fasciculations. No drift of the extended upper extremities. DTR 2+. Plantars are flexor. Sensory Exam: Normal light touch, temperature, pinprick, vibration, and joint-position sensations. Rhomberg sign is absent. Coordination: No ataxia. No titubation. Gait Exam: Within normal limits. Cerebellar Signs: Finger to nose is okay. Extrapyramidal System: No tremor, rigidity with normal facial expressions. No bradykinesia. No bradyphrenia. Normal arm swing and posture. No propulsion or retropulsion. Speech: Normal. MMSE Level of Consciousness: Alert. Orientation: Does not know year, month, date, or day. Does not know city, county, or state. Does not know location or floor. Registration: Able to register 3 objects. Attention: Unable to do serial 7's. Recall: Able to recall 0 out of 3 objects. Language: Normal spontaneous speech, fluency, repetition, naming, comprehension, reading, and writing. Total Score: <13/30. Assessment & Plan Assessment & Plan (1) Alzheimer dementia: Code(s): G30.9 - Alzheimer's disease, unspecified; F02.80 - Dementia in other diseases classified elsewhere, unspecified severity, without behavioral disturbance, psychotic disturbance, mood disturbance, and anxiety Category: Medical Qualifiers: Alzheimer's disease onset: unspecified onset Dementia severity: unspecified severity Dementia behavioral or psychological symptom: unspecified whether behavioral, psychotic, or mood disturbance or anxiety Qualified Code(s): G30.9 - Alzheimer's disease, unspecified; F02.80 - Dementia in other diseases classified elsewhere, unspecified severity, without behavioral disturbance, psychotic disturbance, mood disturbance, and anxiety Plan: Continue memantine 10mg 1 tablet twice a day. Continue donepezil 10mg 1 tablet at bedtime. Coding Level of Care Code Est Pt Level 4 (57208) Diagnoses Alzheimer's dementia, unspecified dementia severity, unspecified timing of dementia onset, unspecified whether behavioral, psychotic, or mood disturbance or anxiety G30.9; F02.80 Alzheimer's disease onset: unspecified onset Dementia severity: unspecified severity Dementia behavioral or psychological symptom: unspecified whether behavioral, psychotic, or mood disturbance or anxiety
== END 2025-07-13 13:39 | disposition home or self-care (01) ==
LOC: HO.HSM 13:15
PROVIDERS: PCP Internal Medicine; Referring Provider Internal Medicine; Visit Provider Registered Nurse
DX: G30.9 Alzheimer's disease, unspecified (principal); F02.80 Dementia in other diseases classified elsewhere, unspecified severity, without behavioral disturbance, psychotic disturbance, mood disturbance, and anxiety
CPT/HCPCS: 99214

== ENCOUNTER → 2025-07-13 13:15 | Outpatient (BNVA) | payer MEDICARE, SELFPAY | PROVIDERS: PCP Internal Medicine; Referring Provider Internal Medicine; Visit Provider Registered Nurse | DX: G30.9 Alzheimer's disease, unspecified (principal); F02.80 Dementia in other diseases classified elsewhere, unspecified severity, without behavioral disturbance, psychotic disturbance, mood disturbance, and anxiety | CPT/HCPCS: 99212 ==

== ENCOUNTER 2025-07-21 07:57 | Outpatient (REF) | payer MEDICARE, SELFPAY ==
--- OUTSIDE RECORDS SUMMARY | 2025-07-21 08:01 | XMS_ITS | Patient Health Record ---
Author Organization [facility] Address [address] [place] [address] Care Team Providers Care Performance Analyst Name Role Phone Tashia Ward Primary Care Provider Unavailab Mello Awan Unavailable [phone] Reason For Referral No Information Medications Medication SIG (Take, Route, Fr equency, Duration) Notes Start Date End Date Status Simvastatin 40 MG ONE ORAL DAILY Oral; Duration: 90 Active Lisinopril 10 MG TAKE ONE ORAL DAILY Oral; Duration: 90 Active Problems Problem Type SNOMED Code ICD Code Onset Dates Problem Status W/U Status Risk Notes Problem Screening for malignant neoplasm of colon (805629589) Encounter for screening for malignant neoplasm of colon (Z12.11) Active confirmed Problem Screening for malignant neoplasm of rectum (280307024) Encounter for screening for malignant neoplasm of rectum (Z12.12) Active confirmed Problem Preprocedural examination (095229420403176) Preprocedural examination (Z01.818) Active confirmed Plan Of Treatment Future Test Test Name Order Date COLONOSCOPY 04/23/2016 Insurance Providers Payer Name Payer Address Payer Phone Subscriber Number Group Number Insured Name Patient Relationship to Insured Coverage Start Date Coverage End Date [facility] [address] [place] [phone] [id number] [employer] Self - patient is the insured Medical (General) History Medical History History ICD Code Screening Colonoscopy 01-09-2006--neg. exc ept for diverticulosis Denies [place],DM,CVA,Lung disease,renal dise ase Hypertension Hyperlipidemia Surgical History Surgery Date(Month/Year) Tubal ligation
[2025-07-21 12:26] LABS: Appearance Urine Clear; Glucose Urine UA Negative (Negative); PH 6.0 (5.0-9.0); Specific Gravity - Urine <= 1.005 (1.005-1.025)
== END 2025-07-21 07:58 | disposition home or self-care (01) ==
LOC: HO.LAB 07:57
PROVIDERS: Visit Provider Internal Medicine
DX: R30.0 Dysuria (principal)
CPT/HCPCS: 81003

== ENCOUNTER 2025-07-28 11:22 | Outpatient (AMB) | payer MEDICARE, SELFPAY ==
[2025-07-28 11:32] VITALS: BP 90/62; PULSE 91; RESP 18; TEMP 36.2; O2SAT 93; BMI 38.8
--- NOTE | 2025-07-28 11:32 | A.OFFPC_ITS ---
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 by: Self / Same As Patient Allergies No Known Allergies Allergy (Mild, Verified 07/28/25 11:32) NOT APPLICABLE Tobacco use date assessed: 07/28/25 Last assessed Fall Risk: 07/28/25 Dental Screening Dental Screen Date: 07/28/25 [facility] Medical History Radial styloid fracture Closed fracture of radial styloid Keratotic lesion Obesity (BMI 30-39.9) Dementia Benign essential hypertension Pure hypercholesterolemia Surgical History History of colonoscopy Status post bunionectomy (~07/2007) History of section Family History Father Heart disease Mother Heart disease Diabetes mellitus Sister Diabetes mellitus Rheumatoid arthritis Sister Ovarian cancer Social History Housing: House Alcohol intake: former Patient Tobacco Use Status: Never used Tobacco e-Cigarette/Vaping Use: Never Used Second Hand Smoke Exposure: Yes Advance Directives Date on File: 09/16/23 service: No Current occupational status: retired Cognitive needs: No Hearing needs: No Vision needs: Yes Questionnaire Thrive Questionnaire Date Thrive assessed: 02/25/25 I am a: Parent/Caregiver What is your living situation today?: I have a place to live, but I am worried about losing it in the future Within the past 12 months, did the food you bought not last and you didn't have the money to get more?: Never true Within the past 12 months, did you worry whether your food would run out before you got money to buy more?: Never true Do you have trouble paying for medicines?: No Do you have trouble getting transportation to medical appointments?: No Do you have trouble paying your heating and electricity bill?: No Do you have trouble taking care of your child, family member or friend?: No Do you have trouble with day-to-day activities such as bathing, preparing meals, shopping, managing finances, etc.?: I choose not to answer this question Are you currently unemployed and looking for a job?: No Are you interested in more education?: No Please select the resources that you would like help with: None Currently or been in a relationship where the following occur: No concerns reported THRIVE Score: 1 CLARICE-7 AMB Questionnaire CLARICE-7 Date CLARICE - 7 assessed: 05/04/25 Source: Developed by Drs. Mello Richey, Katina Avalos, Beni Palma and colleagues, with an educational sesar from [employer]. Physical exam (Primary Care) Tobacco/Smoking Status: Tobacco use Status Tobacco use date assessed 05/04/25 05/04/25 13:32 Patient Tobacco Use Status Never used Tobacco 05/04/25 13:32 e-Cigarette/Vaping Use Never Used 05/04/25 13:32 Thrive Assessment: Date of Thrive Assessment Date Thrive assessed 02/25/25 07/28/25 11:22 Currently or been in a relationship where the following occur: No concerns reported Coding
--- NOTE | 2025-07-28 11:34 | AM.OFFVISMDC ---
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 The patient has a history of Alzheimer's disease and memory impairment, which has been monitored every six months by neurology. She has been referred to a specialist for further evaluation of her memory issues. Preventative care measures include a colonoscopy, which has been completed, and vaccinations for flu, pneumonia, and tetanus, which are up to date. A bone density assessment (DEXA scan) is also part of her preventative care regimen. [facility] Medical History Radial styloid fracture Closed fracture of radial styloid Keratotic lesion Obesity (BMI 30-39.9) Dementia Benign essential hypertension Pure hypercholesterolemia Surgical History History of colonoscopy Status post bunionectomy (~07/2007) History of section Family History Father Heart disease Mother Heart disease Diabetes mellitus Sister Diabetes mellitus Rheumatoid arthritis Sister Ovarian cancer Social History Housing: House Alcohol intake: former Patient Tobacco Use Status: Never used Tobacco e-Cigarette/Vaping Use: Never Used Second Hand Smoke Exposure: Yes Advance Directives Date on File: 09/16/23 service: No Current occupational status: retired Cognitive needs: No Hearing needs: No Vision needs: Yes Questionnaire Medicare Wellness Checkup What [age]?: [age] What gender do you identify with?: female During the past 4 weeks, how much have you been bothered by emotional problems such as feeling anxious, depressed, irritable, sad or downhearted, and blue?: slightly During the past 4 weeks, has your physical & emotional health limited your social activities with family, friends, neighbors, or groups?: slightly During the past 4 weeks, how much bodily pain have you generally had?: very mild pain During the past 4 weeks, was someone available to help you if you needed & wanted help?: yes, as much as I wanted During the past 4 weeks, what was the hardest physical activity you could do for at least 2 minutes?: light Can you get to places out of walking distance without help? (For eg., can you travel alone on buses, taxis or drive your car?): No Can you go shopping for groceries or clothes without someone's help?: No Can you prepare your own meals?: No Can you do your housework without help?: Yes Because of any health problems, do you need the help of another person with your personal care needs such as eating, bathing, dressing or getting around the house?: Yes Can you handle your own money without help?: No During the past 4 weeks, how would you rate your health in general?: good During the past 4 weeks how have things been going for you?: pretty well Are you having difficulties driving your car?: not applicable, I don't use a car Do you always fasten your seat belt when you are in a car?: yes, usually During past 4 weeks, have you been bothered by the following: never: Falling or dizzy when standing up and Sexual problems?, seldom: Trouble eating well?, Teeth or denture problems? and Tiredness or fatigue? and always: Problems using the telephone? Have you fallen 2 or more times in the past year?: No Are you afraid of falling?: No Are you a smoker?: no During the past 4 weeks, how many drinks of wine, beer, or other alcoholic beverages did you have?: 2-5 drinks per week Do you exercise for about 20 minutes 3 or more times a week?: yes, some of the time Have you been given information to help with the following?: no: Hazards in your house that might hurt you? and no: Keeping track of your medications? How often do you have trouble taking medicines the way you have been told to take them?: I always take medicine as prescribed How confident are you that you can control & manage most of your health problems?: somewhat confident What is your race?: White Mini Mental State Exam (MMSE) Orientation What is the (year) (season) (date) (day) (month)?: day Where are we (state) (county) (town or city) (hospital) (floor)?: state Language Show patient a wristwatch & ask what it is. Repeat for pencil.: watch and pencil Ask the patient to repeat the phrase 'No ifs, ands, or buts' after you.: incorrect Ask the patient to 'take a piece of paper with their right hand' 'fold paper in half' 'place paper on floor': take paper in right hand, fold paper in half and place paper on floor Score Score: 7 Activity of Daily Living Bathing - sponge bath, tub bath or shower: receives help in bathing more than one body part (or not bathed) Dressing - getting clothes from closets & drawers, including inner/outer garments & fasteners.: receives help getting clothes or getting dressed, or stays undressed Toileting - going to the 'toilet room' for urine/bowel elimination & cleaning self/arranging clothes: receives help going to toilet room, cleaning self or arranging clothes Transfer: moves in & out of bed and chair without help (may use support object) Continence: controls urination/bowel movements completely by self Feeding: feeds self without help Total Score: 2 Information obtained from: patient Using telephone: needs assistance Traveling: dependent Shopping: dependent Preparing meals: dependent Housework: dependent Taking medicine: dependent Managing money: dependent PHQ-9 Over the last 2 weeks, how often have you been bothered by any of the following problems? 1. Little interest or pleasure in doing things: nearly every day 2. Feeling down, depressed, or hopeless: several days 3. Trouble falling or staying asleep, or sleeping too much: several days 4. Feeling tired or having little energy: several days 5. Poor appetite or overeating: not at all 6. Feeling bad about yourself - or that you are a failure or have let yourself or your family down: not at all 7. Trouble concentrating on things, such as reading the newspaper or watching television: several days 8. Moving or speaking so slowly that other people could have noticed. Or the opposite - being so fidgety or restless that you have been moving around a lot more than usual: not at all 9. Thoughts that you would be better off or of hurting yourself in some way: several days Total score: 8 Source: Developed by Drs. Mello Richey, Katina Avalos, Beni Palma and colleagues, with an educational sesar from [employer]. Physical Exam Vital Signs: Last Vital Signs Temp 97.1 F 07/28/25 11:32 Pulse 91 07/28/25 11:32 Resp 18 07/28/25 11:32 BP 90/62 07/28/25 11:32 Pulse Ox 93 07/28/25 11:32 Oxygen Delivery Method Room Air 07/28/25 11:32 BMI result Body Mass Index 38.8 Assessment & Plan Assessment & Plan (1) Alzheimer dementia: Code(s): G30.9 - Alzheimer's disease, unspecified; F02.80 - Dementia in other diseases classified elsewhere, unspecified severity, without behavioral disturbance, psychotic disturbance, mood disturbance, and anxiety Qualifiers: Alzheimer's disease onset: unspecified onset Dementia behavioral or psychological symptom: unspecified whether behavioral, psychotic, or mood disturbance or anxiety Dementia severity: unspecified severity Qualified Code(s): G30.9 - Alzheimer's disease, unspecified; F02.80 - Dementia in other diseases classified elsewhere, unspecified severity, without behavioral disturbance, psychotic disturbance, mood disturbance, and anxiety Plan: Follows with Neurology. Continue Memantine, and Donepezil. (2) Medicare annual wellness visit, subsequent: Code(s): Z00.00 - Encounter for general adult medical examination without abnormal findings Plan: CBC, CMP, Lipid panel, A1C, TSH w T4, vit D. Recently done. Ordered by Jeison for 6 months. Shingles 2 doses when >50 yo. COVID: two doses. Tdap: Done in 2021. Next due in 2031. Pneumococcal: 19-64. Done in the past. Flu vaccine: Done this year. Colonoscopy: 45-75. Aged out. AAA: 65 -75. NI. CT lun - 80. NI. HPV: Aged out. HIV: NI. HBV: NI. HCV: NI. Dexa: Done recently. Due next year. Mammogram: Aged out. Plan During the visit, we discussed the ongoing management of Alzheimer's disease, including the importance of regular monitoring every six months and the referral to a specialist for further evaluation of memory impairment. Preventative care measures were reviewed, confirming that vaccinations are up to date and a colonoscopy has been completed. A bone density assessment was recommended as part of the patient's health maintenance plan. Quality Reporting (2019) Depression/Bipolar (159/160/161/177) PHQ-9: Total score: 8 Coding Level of Care Code Medicare Subsequent (G0439) Est Pt Level 3 (87263) Diagnoses Alzheimer's dementia, unspecified dementia severity, unspecified timing of dementia onset, unspecified whether behavioral, psychotic, or mood disturbance or anxiety G30.9; F02.80 Alzheimer's disease onset: unspecified onset Dementia behavioral or psychological symptom: unspecified whether behavioral, psychotic, or mood disturbance or anxiety Dementia severity: unspecified severity Medicare annual wellness visit, subsequent Z00.00
== END 2025-07-28 12:03 | disposition home or self-care (01) ==
LOC: HO.HMCH 11:22
PROVIDERS: PCP Internal Medicine; Visit Provider Internal Medicine
DX: Z00.00 Encounter for general adult medical examination without abnormal findings (principal); G30.9 Alzheimer's disease, unspecified; F02.80 Dementia in other diseases classified elsewhere, unspecified severity, without behavioral disturbance, psychotic disturbance, mood disturbance, and anxiety